=== PATIENT | male | born 1945 | race Caucasian/White ===

== ENCOUNTER 2021-10-05 05:32 | Outpatient (CLI) | payer MEDICARE ==
[~2021-10-05] VITALS: Ht 167.7 cm; Wt 63.6 kg
[~2021-10-05 05:32] MED LIST: ALBU18HF2 PO; ALPR.25T PO; ASP325TEC; ASP81CT; ASPI-1238 PO; ATEN50TA PO; ATN50T; AZIT500T PO; CEFD300C3 PO; CLOP75TA28 PO; CLPD75T; FLUT1DIS26 PO; FURO-125 PO; HCT25T; ISOS60TA63 PO; LEVO125T6 PO; LISI5TAB14; LORA10TA76 PO; LOSA100T57 PO; METF-397 PO; MULT-567 PO; MULT1TAB63; OLME20TA5 PO; POTA10TA PO; PRD20T PO; ROSU10TA12; SIMV20TA26 PO; SIMVASTATIN; [UNRECOGNIZED DRUG - OTHER]
[2021-10-05] MEDS ORDERED: POTA10CA43 PO (13:50)
[2021-10-05] MEDS ORDERED: FURO20TA4 PO (13:50)
[2021-10-05] MEDS ORDERED: ASPI-999 PO (13:50)
== END 2021-10-05 13:53 | disposition home or self-care (01) ==
LOC: PREOP 05:32
PROVIDERS: ATTEND Specialist
DX: Z01.818 Encounter for other preprocedural examination (principal)

== ENCOUNTER 2021-10-08 07:49 | Day surgery (SDC) | payer MEDICARE ==
[~2021-10-08] VITALS: Ht 167.7 cm; Wt 63.6 kg
[~2021-10-08 07:49] MED LIST changes: +ASPI-999 PO; +FURO20TA4 PO; +POTA10CA43 PO
[2021-10-08 08:00] VITALS: BP 158/81
[2021-10-08] MEDS: TETRACAINE 0.5% OPHTH SOLN 4 ML BTL (SINGLE DOSE ONLY) OU PRN ×4 (08:28→08:55)
[2021-10-08] MEDS ORDERED: MOXIFLOXACIN OPHTH SOLN 5 MG/ML 0.3 ML SYRINGE OP ONE (08:30)
[2021-10-08] MEDS ORDERED: POVIDONE (BETADINE) OPHTH SOLN 5% 30 ML OP ONE (08:30)
[2021-10-08] MEDS ORDERED: TIMOLOL MALEATE 0.5% 5 ML (TIMOPTIC) BTL OU PRN (08:30)
[2021-10-08] MEDS: TROPICAMIDE 1% OPH SOLN (MYDRIACYL) 15 ML BTL OP SCH ×3 (08:38→08:55)
[2021-10-08] MEDS: PHENYLEPHRINE 10% OPHTH (NEO-SYN) 5 ML BTL OU SCH ×3 (08:38→08:55)
--- NOTE | 2021-10-08 09:13 | Ophthalmologist Pre-Op Note ---
Pre-Operative Progress Note H&P Reviewed The H&P was reviewed, patient examined and no changes noted. Date H&P Reviewed: Oct 08, 2021 Time H&P Reviewed: 09:13 Pre-Op Dx Cataract, Left Eye NOEL HOLLEY MD Oct 08, 2021 09:13
[2021-10-08] MEDS ORDERED: MIDAZOLAM 2 MG/2 ML (VERSED) VIAL ONE (09:16)
[2021-10-08] MEDS ORDERED: acetaZOLAMIDE ER 500 MG CAP (DIAMOX SEQUELS) PO ONE (09:30)
--- NOTE | 2021-10-08 09:35 | Ophthalmology Operative Report ---
Cataract removal/placement IOL PREOPERATIVE DIAGNOSIS: Cataract Left Eye POSTOPERATIVE DIAGNOSIS: Cataract Left Eye PROCEDURE: Cataract removal and placement of posterior chamber implant, left eye SURGEON: George Holley ANESTHESIA: Topical with sedation COMPLICATIONS: None ESTIMATED BLOOD LOSS: Minimal DESCRIPTION OF PROCEDURE: After proper informed consent was obtained, the patient, a 75 male, was taken to the Operating Room and the left eye was anesthetized with tetracaine. The left eye was then prepped and draped in the usual manner. A wire lid speculum was placed. A paracentesis was made at the left hand position. Preservative free lidocaine was injected into the anterior chamber followed by viscoelastic. A clear corneal incision was made in the temporal position. A capsulorrhexis was preformed and the central nuclear and cortical material were removed. The posterior capsule was polished and an Ferny 22.5 AU00T0 was placed into the capsular bag. The residual viscoelastic was aspirated and balanced saline solution was injected into the anterior chamber. Moxifloxacin was injected into the anterior chamber. The wound was checked and found to be water tight. The patient tolerated the procedure well without complications. GEORGE HOLLEY MD Oct 08, 2021 09:35
[2021-10-08 09:45] VITALS: BP 158/81
--- NOTE | 2021-10-08 17:30 | Anesthesia-General Post-Op ---
MAC Patient Condition Mental Status/LOC: Same as Preop Cardiovascular: Satisfactory Nausea/Vomiting: Absent Respiratory: Satisfactory Pain: Controlled Complications: Absent Post Op Complications Complications None Follow Up Care/Instructions Patient Instructions None needed. Anesthesiology Discharge Order Discharge Order Patient is doing well, no complaints, stable vital signs, no apparent adverse anesthesia problems. No complications reported per nursing. IDALMIS AGRAWAL CRNA Oct 08, 2021 17:30
== END 2021-10-08 09:47 | disposition home or self-care (01) ==
LOC: SDC 07:49
PROVIDERS: ATTEND Specialist
DX: H25.9 Unspecified age-related cataract (principal); F17.290 Nicotine dependence, other tobacco product, uncomplicated; Z95.1 Presence of aortocoronary bypass graft; Z79.82 Long term (current) use of aspirin
CPT/HCPCS: 66984; 82947; V2632

== ENCOUNTER 2021-10-22 07:20 | Day surgery (SDC) | payer MEDICARE ==
[~2021-10-22] VITALS: Ht 167.7 cm; Wt 63.6 kg
[2021-10-22] MEDS: TETRACAINE 0.5% OPHTH SOLN 4 ML BTL (SINGLE DOSE ONLY) OU PRN ×3 (07:40→07:53)
[2021-10-22] MEDS ORDERED: MIDAZOLAM 2 MG/2 ML (VERSED) VIAL ONE (07:40)
[2021-10-22] MEDS ORDERED: MOXIFLOXACIN OPHTH SOLN 5 MG/ML 0.3 ML SYRINGE OP ONE (07:45)
[2021-10-22] MEDS ORDERED: TIMOLOL MALEATE 0.5% 5 ML (TIMOPTIC) BTL OU PRN (07:45)
[2021-10-22] MEDS ORDERED: POVIDONE (BETADINE) OPHTH SOLN 5% 30 ML OP ONE (07:45)
[2021-10-22] MEDS: PHENYLEPHRINE 10% OPHTH (NEO-SYN) 5 ML BTL OU SCH ×2 (07:47→07:53)
[2021-10-22] MEDS: TROPICAMIDE 1% OPH SOLN (MYDRIACYL) 15 ML BTL OP SCH ×2 (07:47→07:53)
[2021-10-22 07:49] VITALS: BP 140/89
--- NOTE | 2021-10-22 08:51 | Ophthalmologist Pre-Op Note ---
Pre-Operative Progress Note H&P Reviewed The H&P was reviewed, patient examined and no changes noted. Date H&P Reviewed: Oct 22, 2021 Time H&P Reviewed: 08:31 Pre-Op Dx Cataract, Right Eye NOEL HOLLEY MD Oct 22, 2021 08:51
--- NOTE | 2021-10-22 08:52 | Ophthalmology Operative Report ---
Cataract removal/placement IOL PREOPERATIVE DIAGNOSIS: Cataract Right Eye POSTOPERATIVE DIAGNOSIS: Cataract Right Eye PROCEDURE: Cataract removal and placement of posterior chamber implant, right eye SURGEON: George Holley ANESTHESIA: Topical with sedation COMPLICATIONS: None ESTIMATED BLOOD LOSS: Minimal DESCRIPTION OF PROCEDURE: After proper informed consent was obtained, the patient, a 75 male, was taken to the Operating Room and the right eye was anesthetized with tetracaine. The right eye was then prepped and draped in the usual manner. A wire lid speculum was placed. A paracentesis was made at the left hand position. Preservative free lidocaine was injected into the anterior chamber followed by viscoelastic. A clear corneal incision was made in the temporal position. A capsulorrhexis was preformed and the central nuclear and cortical material were removed. The posterior capsule was polished and Ferny 22.0 AU00T0 IOL was placed into the capsular bag. The residual viscoelastic was aspirated and balanced saline solution was injected into the anterior chamber. Moxifloxacin was injected into the anterior chamber. The wound was checked and found to be water tight. The patient tolerated the procedure well without complications. GEORGE HOLLEY MD Oct 22, 2021 08:52
[2021-10-22 08:53] VITALS: BP 145/83
[2021-10-22] MEDS ORDERED: acetaZOLAMIDE ER 500 MG CAP (DIAMOX SEQUELS) PO ONE (10:30)
--- NOTE | 2021-10-22 14:46 | Anesthesia-General Post-Op ---
MAC Patient Condition Mental Status/LOC: Same as Preop Cardiovascular: Satisfactory Nausea/Vomiting: Absent Respiratory: Satisfactory Pain: Controlled Complications: Absent Post Op Complications Complications None Follow Up Care/Instructions Patient Instructions None needed. Anesthesiology Discharge Order Discharge Order Patient is doing well, no complaints, stable vital signs, no apparent adverse anesthesia problems. No complications reported per nursing. ROCK HORTON CRNA Oct 22, 2021 14:46
== END 2021-10-22 08:54 ==
LOC: SDC 07:20
PROVIDERS: ATTEND Specialist
DX: E11.36 Type 2 diabetes mellitus with diabetic cataract (principal); H25.11 Age-related nuclear cataract, right eye; F17.200 Nicotine dependence, unspecified, uncomplicated; Z79.84 Long term (current) use of oral hypoglycemic drugs
CPT/HCPCS: 66984; 82947; V2632

== ENCOUNTER 2022-02-08 10:09 | Inpatient (IN) | payer MEDICARE ==
[~2022-02-08] VITALS: Ht 167 cm; Wt 65.2 kg
[~2022-02-08 10:09] MED LIST changes: +ALBU18HF2 INH; -ALBU18HF2 PO; +FLUT1DIS26 INH; -FLUT1DIS26 PO
--- NOTE | 2022-02-08 10:37 | ED Cardiac General ---
History of Present Illness General Chief Complaint: Cardiac/General Problems Stated Complaint: SOB Nursing Triage Note: PT FROM DR EDWARDS OFFICE W C/P AND SOA, PT DENIES C/P AT THIS X BUT STATES HAD THIS AM. PT STATES HAS SWEATING EPISODE THIS AM. Source: patient Exam Limitations: no limitations History of Present Illness Date Seen by Provider: Feb 08, 2022 Time Seen by Provider: 10:28 Initial Comments Patient is a 76-year-old who presents to the emergency room at the direction of his primary care, Dr. George. Patient has had chest pain that he describes as "an ache" over the last couple of days and has had increasing shortness of breath. He went to Dr. George's office and they stated that he needed to be seen in the ER for rapid heart rate. He has been a little sweaty. No nausea. The pain or ache does not radiate. He does not have a local occupational psychologist as he states they are too expensive. He denies any recent illness such as fevers, chills, URI. He does have a chronic cough and his sputum production has not changed. He states his appetite has been diminished over the last few days. No problems with bowel, black or bloody stool. He states he is not urinating as much as he usually does. He is a diabetic. He does have a history of coronary artery bypass grafting years ago also subsequent stent[place] [address] Cadet. At presentation A. fib/flutter on the monitor in the 140s. Systolic blood pressure 115. No acute distress. 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 Associated Systoms: Chest Pain ("ache"), Malaise, Shortness of Air Allergies and Home Medications Allergies Coded Allergies: NKANo Known Allergies (Verified Allergy, Unknown, 01/07/06) Patient Home Medication List Home Medication List Reviewed: Yes ALPRAZolam (Xanax Tablet) 0.25 Mg Tablet, 0.25 MG PO BID PRN for ANXIETY, (Reported) Entered as Reported by: MAURICE CLARK on 05/21/19 0751 Albuterol Sulfate (Ventolin Hfa) 18 Gm Hfa.aer.ad, 2 PUFF PO Q6H PRN for SHORTNESS OF BREATH, (Reported) Entered as Reported by: MAURICE CLARK on 05/21/191540 Aspirin (Aspirin) 81 Mg Tab.chew, 81 MG PO DAILY, (Reported) Entered as Reported by: LISSA KEARNS on 10/05/21 1350 Atenolol (Atenolol) 50 Mg Tablet, 50 MG PO HS, (Reported) Entered as Reported by: MAURICE CLARK on 05/21/191540 Clopidogrel Bisulfate (Clopidogrel) 75 Mg Tablet, 75 MG PO DAILY, (Reported) Entered as Reported by: MAURICE CLARK on 05/21/191540 Fluticasone/Salmeterol (Advair 250-50 Diskus) 1 Each Blst.w.dev, 1 PUFF PO BID, (Reported) Entered as Reported by: MAURICE CLARK on 05/21/191540 Furosemide (Furosemide) 20 Mg Tablet, 20 MG PO DAILY, (Reported) Entered as Reported by: LISSA KEARNS on 10/05/21 1350 Isosorbide Mononitrate (Isosorbide Mononitrate ER) 60 Mg Tab, 30 MG PO DAILY, (Reported) Entered as Reported by: MAURICE CLARK on 05/21/191540 Levothyroxine Sodium (Levothyroxine Sodium) 125 Mcg Tablet, 125 MCG PO DAILY, (Reported) Entered as Reported by: MAURICE CLARK on 05/21/191539 Loratadine (Claritin) 10 Mg Tablet, 10 MG PO DAILY, (Reported) Entered as Reported by: MAURICE CLARK on 05/21/191540 Losartan Potassium (Losartan Potassium) 100 Mg Tablet, 100 MG PO DAILY, (Reported) Entered as Reported by: MAURICE CLARK on 05/21/191540 Metformin HCl (Metformin HCl) 500 Mg Tablet, 1,000 MG PO DAILY, (Reported) Entered as Reported by: MAURICE CLARK on 05/21/191540 Metformin HCl (Metformin HCl) 500 Mg Tablet, 500 MG PO HS, (Reported) Entered as Reported by: MAURICE CLARK on 05/21/191540 Multivitamin (Multivitamins) 1 Each Tablet, 1 EACH PO DAILY, (Reported) Entered as Reported by: MAURICE CLARK on 05/21/19 1550 Potassium Chloride (Potassium Chloride) 10 Meq Capsule.er, 10 MEQ PO DAILY, (Reported) Entered as Reported by: LISSA KEARNS on 10/05/21 1350 Simvastatin (Simvastatin) 20 Mg Tablet, 20 MG PO HS, (Reported) Entered as Reported by: MAURICE CLARK on 05/21/19 1541 Review of Systems Review of Systems Constitutional: see HPI Respiratory: Shortness of Air, SOA With Exertion Cardiovascular: Chest Pain (with exertion and at rest) Past Fefekel-Gqqtms-Ikapkz Hx Patient Social History Tobacco Use?: Yes Tobacco type used: Cigarettes Substance use?: No Alcohol Use?: No Pt feels they are or have been: No Immunizations Up To Date Influenza Vaccine Up-to-Date: Yes; Up-to-Date First/Initial COVID19 Vaccinat: YES Second COVID19 Vaccination Jimmie: YES Seasonal Allergies Seasonal Allergies: No Past Medical History Surgery/Hospitalization HX: COPD, A FIB, APPY, BYPASS 5 STENTS Surgeries: Yes (APPY 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 , QUAD BYPASS AT AGE 51) Appendectomy, Coronary Stent Respiratory: Yes COPD Currently Using CPAP: No Currently Using BIPAP: No Cardiac: Yes (QUADTRIPLE BYPASS AT AGE 49) Coronary Artery Disease, High Cholesterol, Hypertension Neurological: Yes Reproductive Disorders: No Genitourinary: No Gastrointestinal: Yes (APPY) Musculoskeletal: No Endocrine: No HEENT: No Hearing Impairment: Hard of Hearing Cancer: No Psychosocial: Yes Anxiety Integumentary: No Blood Disorders: No Physical Exam Vital Signs Vital Signs - First Documented 02/08/22 10:15 Temp 36.2 Pulse 144 Resp 22 B/P (MAP) 78/53 (61) Pulse Ox 95 O2 Delivery Nasal Cannula O2 Flow Rate 3.00 Capillary Refill : Less Than 3 Seconds Height, Weight, BMI Height: '" Weight: lbs. oz. kg; 23.00 BMI Method:Stated General Appearance: No Apparent Distress, WD/WN HEENT: PERRL/EOMI Neck: Normal Inspection Respiratory: Lungs Clear, Normal Breath Sounds, No Accessory Muscle Use, No Respiratory Distress Cardiovascular: Irregularly Irregular, Tachycardia Gastrointestinal: Non Tender, Soft Extremity: Normal Capillary Refill, Normal Range of Motion, Pedal Edema (2+ (left greater than right)) Neurologic/Psychiatric: Alert, Oriented x3, No Motor/Sensory Deficits, Normal Mood/Affect, natural resources specialist II-XII Norm as Tested Skin: Normal Color, Warm/Dry Progress/Results/Core Measures Results/Orders Lab Results Laboratory Tests Test 02/08/22 10:30 Range/Units White Blood Count 10.0 4.3-11.0 10^3/uL Red Blood Count 4.89 4.30-5.52 10^6/uL Hemoglobin 15.2 13.3-17.7 g/dL Hematocrit 46 40-54 % Mean Corpuscular Volume 94 80-99 fL Mean Corpuscular Hemoglobin 31 25-34 pg Mean Corpuscular Hemoglobin Concent 33 32-36 g/dL Red Cell Distribution Width 15.8 H 10.0-14.5 % Platelet Count 222 130-400 10^3/uL Mean Platelet Volume 10.9 9.0-12.2 fL Immature Granulocyte % (Auto) 0 % Neutrophils (%) (Auto) 81 H 42-75 % Lymphocytes (%) (Auto) 11 L 12-44 % Monocytes (%) (Auto) 7 0-12 % Eosinophils (%) (Auto) 1 0-10 % Basophils (%) (Auto) 1 0-10 % Neutrophils # (Auto) 8.0 H 1.8-7.8 10^3/uL Lymphocytes # (Auto) 1.0 1.0-4.0 10^3/uL Monocytes # (Auto) 0.7 0.0-1.0 10^3/uL Eosinophils # (Auto) 0.1 0.0-0.3 10^3/uL Basophils # (Auto) 0.1 0.0-0.1 10^3/uL Immature Granulocyte # (Auto) 0.0 0.0-0.1 10^3/uL Prothrombin Time 13.4 12.2-14.7 SEC INR Comment 1.0 0.8-1.4 Activated Partial Thromboplast Time 28 24-35 SEC Sodium Level 140 135-145 MMOL/L Potassium Level 4.6 3.6-5.0 MMOL/L Chloride Level 103 98-107 MMOL/L Carbon Dioxide Level 24 21-32 MMOL/L Anion Gap 13 5-14 MMOL/L Blood Urea Nitrogen 38 H 7-18 MG/DL Creatinine 1.77 H 0.60-1.30 MG/DL Estimat Glomerular Filtration Rate 40 BUN/Creatinine Ratio 21 Glucose Level 99 70-105 MG/DL Calcium Level 9.9 8.5-10.1 MG/DL Corrected Calcium 9.8 8.5-10.1 MG/DL Magnesium Level 1.2 L 1.6-2.4 MG/DL Total Bilirubin 0.5 0.1-1.0 MG/DL Aspartate Amino Transf (AST/SGOT) 37 H 5-34 U/L Alanine Aminotransferase (ALT/SGPT) 23 0-55 U/L Alkaline Phosphatase 73 40-136 U/L Myoglobin 105.6 H 10.0-92.0 NG/ML Troponin I 0.725 *H <0.028 NG/ML Total Protein 6.8 6.4-8.2 GM/DL Albumin 4.1 3.2-4.5 GM/DL My Orders Orders - NEETU BARR MD Ekg Tracing (02/08/22 10:24) Cbc With Automated Diff (02/08/22 10:35) Magnesium (02/08/22 10:35) Chest 1 View, Ap/Pa Only (02/08/22 10:35) Comprehensive Metabolic Panel (02/08/22 10:35) Myoglobin Serum (02/08/22 10:35) Protime With Inr (02/08/22 10:35) Partial Thromboplastin Time (02/08/22 10:35) O2 (02/08/22 10:35) Monitor-Rhythm Ecg Trace Only (02/08/22 10:35) Lipid Panel (02/09/22 06:00) Ed Iv/Invasive Line Start (02/08/22 10:35) Troponin I Yancy (02/08/22 10:35) Ns Iv 1000 Ml (Sodium Chloride 0.9%) (02/08/22 10:45) Diltiazem Injection (Cardizem Injection) (02/08/22 10:45) Ekg Tracing (02/08/22 10:58) Diltiazem Drip Pre-Mix (Cardizem Drip Pr (02/08/22 12:30) Aspirin Chewable Tablet (Baby Aspirin Ch (02/08/22 12:30) Apixaban Tablet (Eliquis Tablet) (02/08/22 12:30) Ed Admission (Communication) (02/08/22 12:37) Medications Given in ED Current Medications Medications Dose Ordered Sig/Melissa Route Start Time Stop Time Status Last Admin Dose Admin Apixaban 5 mg ONCE ONCE PO 02/08/22 12:30 02/08/22 12:32 DC 02/08/22 12:47 5 MG Aspirin 243 mg ONCE ONCE PO 02/08/22 12:30 02/08/22 12:32 DC 02/08/22 12:47 243 MG Diltiazem HCl 10 mg ONCE ONCE IVP 02/08/22 10:45 02/08/22 10:46 DC 02/08/22 10:44 10 MG Vital Signs/I&O 02/08/22 02/08/22 10:15 10:44 Temp 36.2 Pulse 144 141 Resp 22 B/P (MAP) 78/53 (61) 110/79 Pulse Ox 95 O2 Delivery Nasal Cannula O2 Flow Rate 3.00 Blood Pressure Mean: 61 Progress Progress Note : Time: 11:43 Progress Note Discussed with Dr Barker, would like to continue his plavix and aspirin and add Eliquis 5mg twice a day; Cardizem 5mg/hr. Will admit to hospitalist. Initial ECG Impression Date: Feb 08, 2022 Initial ECG Impression Time: 10:28 Initial ECG Rate: 133 Initial ECG Rhythm: A Fib/Flutter Initial ECG Impression: Nonspecific Changes EKG : EKG Time: 11:04 Rate: 74 Rhythm: A Fib/Flutter ECG Comparisson: No Previous ECG Available Comment ST segment depression 1 mm leads V4, V5 V6 Diagnostic Imaging Diagonstic Imaging: Xray Plain Films/CT/US/NM/MRI: chest Comments [facility], [place] NAME: RENE SAENZ [facility] REC#: [id number] PT STATUS: REG ER : 1945 PHYSICIAN: NEETU BARR MD ADMIT DATE: 02/08/22/ER Draft Date of Exam:02/08/22 CHEST 1 VIEW, AP/PA ONLY INDICATION: Chest pain. TECHNIQUE/COMPARISON: A single AP view of the chest was obtained with comparison made to the study of 05/23/2019. FINDINGS: There is mild cardiomegaly. The pulmonary vascularity is at the upper limits of normal. There is no evidence pneumothorax. There is no significant pleural fluid. Surgical findings are noted in the mediastinum with persistent bilateral perihilar airspace disease. IMPRESSION: Bilateral perihilar airspace disease may represent chronic pneumonitis or scarring versus recurrent pulmonary edema. There is no evidence of pneumothorax or other acute abnormality. Dictated on workstation # [id number] Dict: 02/08/22 1101 Trans: 02/08/22 1105 [id number] Interpreted by: VALERIY BAH MD Electronically signed by: Critical Care Note Critical Care Start Time: 10:28 Stop Time: 12:30 Total Time (minutes) 45 minutes critical care time in the evaluation and management of this patient with atrial fibrillation/flutter with rapid ventricular response. Time includes initial evaluation, review and interpretation of EKG, labs, x-ray. Review of previous hospitalizations from prior providers. Administration of IV antiarrhythmics and continued monitoring. Discussion with cardiology and hospitalist. Departure Communication (Admissions) Time/Spoke to Admitting Phy: 12:[address] Olvera Time/Spoke to Consulting Phy: 11:[address] Barker Impression Primary Impression: Atrial flutter with rapid ventricular response Additional Impressions: Elevated troponin Coronary artery disease Qualified Codes: I25.10 - Atherosclerotic heart disease of [place] coronary artery without angina pectoris Tobacco abuse Disposition: ADMITTED INPATIENT Condition: Stable Admissions Decision to Admit Reason: Admit from ER (General) Decision to Admit/Date: Feb 08, 2022 Time/Decision to Admit Time: 11:37 Departure-Patient Inst. Referrals: JERRY GEORGE DO (PCP/Family) Primary Care Physician NEETU BARR MD Feb 08, 2022 10:37
[2022-02-08 10:42] LABS: BASOPHILS # (AUTO) 0.1 10^3/uL (0.0-0.1); BASOPHILS % (AUTO) 1 % (0-10); EOSINOPHILS # (AUTO) 0.1 10^3/uL (0.0-0.3); EOSINOPHILS % (AUTO) 1 % (0-10); HEMATOCRIT 46 % (40-54); HEMOGLOBIN 15.2 g/dL (13.3-17.7); LYMPHOCYTES % (AUTO) 11 % (12-44); MEAN CORPUSCULAR HEMOGLOBIN 31 pg (25-34); MEAN CORPUSCULAR HGB CONC 33 g/dL (32-36); MEAN CORPUSCULAR VOLUME 94 fL (80-99); MEAN PLATELET VOLUME 10.9 fL (9.0-12.2); MONOCYTES # (AUTO) 0.7 10^3/uL (0.0-1.0); MONOCYTES % (AUTO) 7 % (0-12); NEUTROPHILS % (AUTO) 81 % (42-75); PLATELET COUNT 222 10^3/uL (130-400)
[2022-02-08] MEDS: NS IV 1000 ML 1,000 ML IV SCH ×2 (10:44→22:32)
[2022-02-08 10:50] LABS: PROTHROMBIN TIME PATIENT 13.4 SEC (12.2-14.7)
[2022-02-08 11:01] LABS: ALBUMIN 4.1 GM/DL (3.2-4.5); BILIRUBIN,TOTAL 0.5 MG/DL (0.1-1.0); CALCIUM 9.9 MG/DL (8.5-10.1); CREATININE SERUM 1.77 MG/DL (0.60-1.30); MAGNESIUM 1.2 MG/DL (1.6-2.4); POTASSIUM 4.6 MMOL/L (3.6-5.0); TOTAL PROTEIN 6.8 GM/DL (6.4-8.2)
--- NOTE | 2022-02-08 11:05 | Diagnostic Imaging Report ---
INDICATION: Chest pain. TECHNIQUE/COMPARISON: A single AP view of the chest was obtained with comparison made to the study of 05/23/2019. FINDINGS: There is mild cardiomegaly. The pulmonary vascularity is at the upper limits of normal. There is no evidence pneumothorax. There is no significant pleural fluid. Surgical findings are noted in the mediastinum with persistent bilateral perihilar airspace disease. IMPRESSION: Bilateral perihilar airspace disease may represent chronic pneumonitis or scarring versus recurrent pulmonary edema. There is no evidence of pneumothorax or other acute abnormality. Dictated by: Dictated on workstation # [id number]
[2022-02-08] MEDS ORDERED: dilTIAZem DRIP PRE-MIX 125 ML IV SCH (12:30)
[2022-02-08] MEDS ORDERED: APIXABAN 5 MG (ELIQUIS) TABLET PO ONE (12:30)
[2022-02-08] MEDS ORDERED: ASPIRIN 81 MG CHEW (CHILDREN'S ASA) PO ONE (12:30)
[2022-02-08] MEDS ORDERED: LACTULOSE SYRUP 10GM/15ML (ENULOSE) 30ML UDC PO PRN (15:30)
[2022-02-08] MEDS ORDERED: ONDANSETRON 4 MG/2 ML (SDV) Z0FRAN IV PRN (15:30)
[2022-02-08] MEDS ORDERED: MILK OF MAGNESIA 400 MG/5 ML 30 ML UDC PO PRN (15:30)
[2022-02-08] MEDS ORDERED: BISACODYL 10 MG SUPP (DULCOLAX) PR PRN (15:30)
[2022-02-08] MEDS ORDERED: ANTACID SUSP 30 ML UDC (MYLANTA) PO PRN (15:30)
[2022-02-08] MEDS ORDERED: ACETAMINOPHEN 325 MG TABLET PO PRN (15:30)
[2022-02-08] MEDS ORDERED: polyethylene glycoL POWDER 17 GM (MIRALAX) PACK PO PRN (15:30)
[2022-02-08] MEDS ORDERED: CALCIUM CARBONATE 500 MG (TUMS) TAB.CHEW PO PRN (15:30)
[2022-02-08] MEDS ORDERED: ONDANSETRON 4 MG (ZOFRAN) ORAL DISSOLVE TAB PO PRN (15:30)
--- NOTE | 2022-02-08 15:36 | Consultation-Cardiology ---
HPI-Cardiology Cardiology Consultation: Date of Consultation 02/08/22 Time Seen by a Provider: 16:00 Date of Admission 02-08-22 Attending Physician Malcolm Pitt DO Admitting Physician Admitting Physician: Valerie Olvera MD Attending Physician: Valerie Olvera MD Consulting Physician Aries Barker MD HPI: Chief Complaint: A-flutter with RVR Mr. Crowder is a 76 yr old male admitted to ICU 4 from the ED. His is present at the bedside. He reports he has had palpitations for the last several days, worse with exertion. He reports he has had chest pressure which radiates across his chest. He reports feeling diaphoretic and weak. He states he has taken a nitro which has improved the discomfort. He reports increasing cough for the last few days which is non-productive. He has chronic bilat ankle edema which is unchanged in the recent past. He continues to smoke 1/2 PPD of cigs. He is oxygen dependant on 2.5L/NC. He denies any n/v/d. He denies any fever or chills. Review of Systems-Cardiology Review of Systems Constitutional: No chills, No fever; malaise Eyes: No vision change Ears/Nose/Throat: No epistaxis, No recent hearing loss Respiratory: As described under HPI Cardiovascular: As described under HPI Gastrointestinal: As described under HPI Genitourinary: No dysuria, No hematuria Musculoskeletal: no symptoms reported Skin: No rash on exposed areas, No ulcerations on exposed areas Psychiatric/Neurological: No anxiety, No depression, No seizure, No focal weakness, No syncope Hematologic: No bleeding abnormalities MOZ-Imsvaa-Hikahk Hx Patient Social History Have you traveled recently?: No Alcohol Use?: No Pt feels they are or have been: No Tobacco type used: Cigarettes Immunizations Up To Date Date of Pneumonia Vaccine: Dec 04, 2018 Date of Influenza Vaccine: Dec 04, 2018 Past Medical History PMH As described under Assessment. Family Medical History Family Medical History: He does not report any family h/o CAD Allergies and Home Medications Allergies Coded Allergies: NKANo Known Allergies (Verified Allergy, Unknown, 01/07/06) Patient Home Medication List ALPRAZolam (Xanax Tablet) 0.25 Mg Tablet, 0.25 MG PO BID PRN for ANXIETY, (Reported) Entered as Reported by: MAURICE CLARK on 05/21/191540 Albuterol Sulfate (Ventolin Hfa) 18 Gm Hfa.aer.ad, 2 PUFF PO Q6H PRN for SHORTNESS OF BREATH, (Reported) Entered as Reported by: MAURICE CLARK on 05/21/191540 Last Action: Last Taken Edited Aspirin (Aspirin) 81 Mg Tab.chew, 81 MG PO DAILY, (Reported) Entered as Reported by: LISSA KEARNS on 10/05/21 135 Atenolol (Atenolol) 50 Mg Tablet, 50 MG PO HS, (Reported) Entered as Reported by: MAURICE CLARK on 05/21/191540 Clopidogrel Bisulfate (Clopidogrel) 75 Mg Tablet, 75 MG PO DAILY, (Reported) Entered as Reported by: MAURICE CLARK on 05/21/191540 Fluticasone/Salmeterol (Advair 250-50 Diskus) 1 Each Blst.w.dev, 1 PUFF PO BID, (Reported) Entered as Reported by: MAURICE CLARK on 05/21/191540 Last Action: Last Taken Edited Furosemide (Furosemide) 20 Mg Tablet, 20 MG PO DAILY, (Reported) Entered as Reported by: LISSA KEARNS on 10/05/21 1350 Isosorbide Mononitrate (Isosorbide Mononitrate ER) 60 Mg Tab, 30 MG PO DAILY, (Reported) Entered as Reported by: MAURICE CLARK on 05/21/191540 Levothyroxine Sodium (Levothyroxine Sodium) 125 Mcg Tablet, 125 MCG PO DAILY, (Reported) Entered as Reported by: MAURICE CLARK on 05/21/191539 Loratadine (Claritin) 10 Mg Tablet, 10 MG PO DAILY, (Reported) Entered as Reported by: MAURICE CLARK on 05/21/191540 Losartan Potassium (Losartan Potassium) 100 Mg Tablet, 100 MG PO DAILY, (Reported) Entered as Reported by: MAURICE CLARK on 05/21/191540 Metformin HCl (Metformin HCl) 500 Mg Tablet, 1,000 MG PO DAILY, (Reported) Entered as Reported by: MAURICE CLARK on 05/21/191540 Metformin HCl (Metformin HCl) 500 Mg Tablet, 500 MG PO HS, (Reported) Entered as Reported by: MAURICE CLARK on 05/21/19 1541 Multivitamin (Multivitamins) 1 Each Tablet, 1 EACH PO DAILY, (Reported) Entered as Reported by: MAURICE CLARK on 05/21/19 1550 Potassium Chloride (Potassium Chloride) 10 Meq Capsule.er, 10 MEQ PO DAILY, (Reported) Entered as Reported by: LISSA KEARNS on 10/05/21 1350 Simvastatin (Simvastatin) 20 Mg Tablet, 20 MG PO HS, (Reported) Entered as Reported by: MAURICE CLARK on 05/21/19 1541 Physical Exam-Cardiology Physical Exam Vital Signs/I&O 02/08/22 02/08/22 02/08/22 02/08/22 20:00 20:00 20:00 21:00 Temp 36.5 Pulse 73 73 Resp 19 B/P (MAP) 108/62 (77) 106/68 (81) Pulse Ox 96 O2 Delivery Nasal Cannula Nasal Cannula Nasal Cannula O2 Flow Rate 4.00 4.00 4.00 02/08/22 02/08/22 02/09/22 02/09/22 22:00 23:00 00:00 00:03 Pulse 73 72 71 Resp 21 30 21 B/P (MAP) 109/67 (81) 100/79 (86) 108/73 (85) Pulse Ox 93 92 94 O2 Delivery Nasal Cannula Nasal Cannula Nasal Cannula Nasal Cannula O2 Flow Rate 4.00 4.00 4.00 4.00 02/09/22 02/09/22 02/09/22 02/09/22 01:00 01:00 02:13 03:00 Pulse 71 71 70 72 Resp 25 19 20 B/P (MAP) 102/72 (82) 108/66 (80) 110/76 (87) Pulse Ox 96 97 96 O2 Delivery Nasal Cannula Nasal Cannula Nasal Cannula O2 Flow Rate 4.00 4.00 4.00 02/09/22 02/09/22 02/09/22 02/09/22 04:00 04:00 04:08 04:22 Temp 36.5 Pulse 73 Resp 17 B/P (MAP) 99/54 (69) Pulse Ox 93 96 95 O2 Delivery Nasal Cannula Nasal Cannula Nasal Cannula O2 Flow Rate 4.00 4.00 4.00 02/09/22 02/09/22 02/09/22 02/09/22 05:00 06:00 07:18 07:19 Temp 36.5 Pulse 73 72 72 Resp 18 24 B/P (MAP) 107/69 (82) 99/51 (67) Pulse Ox 95 94 94 94 O2 Delivery Nasal Cannula Nasal Cannula Nasal Cannula O2 Flow Rate 4.00 4.00 4.00 02/09/22 00:00 Intake Total 1475 ml Output Total 375 ml Balance 1100 ml Capillary Refill : Less Than 3 Seconds Constitutional: AAO x 3, well-developed, other (thin) HEENT: PERRL, hard of hearing Neck: No carotid bruit; carotid pulses are 2 + bilaterally Respiratory: No accessory muscle use, No respiratory distress; rhonchi (scattered), other (prolonged exp phase) Cardiovascular: irregularly irregular Gastrointestinal: No tender; soft, audible bowel sounds Extremities: no lower extremity edema bilateral Neurologic/Psychiatric: grossly intact (moves all extremities) Skin: No rash on exposed areas, No ulcerations on exposed areas Data Review Labs Laboratory Tests 02/08/22 10:30: White Blood Count 10.0, Red Blood Count 4.89, Hemoglobin 15.2, Hematocrit 46, Mean Corpuscular Volume 94, Mean Corpuscular Hemoglobin 31, Mean Corpuscular Hemoglobin Concent 33, Red Cell Distribution Width 15.8H, Platelet Count 222, Mean Platelet Volume 10.9, Immature Granulocyte % (Auto) 0, Neutrophils (%) (Auto) 81H, Lymphocytes (%) (Auto) 11L, Monocytes (%) (Auto) 7, Eosinophils (%) (Auto) 1, Basophils (%) (Auto) 1, Neutrophils # (Auto) 8.0H, Lymphocytes # (Auto) 1.0, Monocytes # (Auto) 0.7, Eosinophils # (Auto) 0.1, Basophils # (Auto) 0.1, Immature Granulocyte # (Auto) 0.0, Prothrombin Time 13.4, INR Comment 1.0, Activated Partial Thromboplast Time 28, Sodium Level 140, Potassium Level 4.6, Chloride Level 103, Carbon Dioxide Level 24, Anion Gap 13, Blood Urea Nitrogen 38H, Creatinine 1.77H, Estimat Glomerular Filtration Rate 40, BUN/Creatinine Ratio 21, Glucose Level 99, Calcium Level 9.9, Corrected Calcium 9.8, Magnesium Level 1.2L, Total Bilirubin 0.5, Aspartate Amino Transf (AST/SGOT) 37H, Alanine Aminotransferase (ALT/SGPT) 23, Alkaline Phosphatase 73, Myoglobin 105.6H, Troponin I 0.725*H, B-Type Natriuretic Peptide 1489.7H, Total Protein 6.8, Albu min 4.1 02/08/22 17:04: Troponin I 1.197*H 02/09/22 03:13: White Blood Count 10.0, Red Blood Count 4.57, Hemoglobin 14.0, Hematocrit 42, Mean Corpuscular Volume 93, Mean Corpuscular Hemoglobin 31, Mean Corpuscular Hemoglobin Concent 33, Red Cell Distribution Width 15.4H, Platelet Count 187, Mean Platelet Volume 10.7, Immature Granulocyte % (Auto) 0, Neutrophils (%) (Auto) 80H, Lymphocytes (%) (Auto) 11L, Monocytes (%) (Auto) 8, Eosinophils (%) (Auto) 1, Basophils (%) (Auto) 1, Neutrophils # (Auto) 8.0H, Lymphocytes # (Auto) 1.1, Monocytes # (Auto) 0.8, Eosinophils # (Auto) 0.1, Basophils # (Auto) 0.1, Immature Granulocyte # (Auto) 0.0, Sodium Level 136, Potassium Level 4.3, Chloride Level 102, Carbon Dioxide Level 24, Anion Gap 10, Blood Urea Nitrogen 36H, Creatinine 1.32H, Estimat Glomerular Filtration Rate 57, BUN/Creatinine Ratio 27, Glucose Level 110H, Calcium Level 9.0, Magnesium Level 1.7, Troponin I 0.857*H, Triglycerides Level 84, Cholesterol Level 101, LDL Cholesterol Direct 47, VLDL Cholesterol 17, HDL Cholesterol 37L Radiology NAME: RENE CROWDER [facility] REC#: [id number] PT STATUS: REG ER : 1945 PHYSICIAN: NEETU BARR MD ADMIT DATE: 02/08/22/ER Draft Date of Exam:02/08/22 CHEST 1 VIEW, AP/PA ONLY INDICATION: Chest pain. TECHNIQUE/COMPARISON: A single AP view of the chest was obtained with comparison made to the study of 05/23/2019. FINDINGS: There is mild cardiomegaly. The pulmonary vascularity is at the upper limits of normal. There is no evidence pneumothorax. There is no significant pleural fluid. Surgical findings are noted in the mediastinum with persistent bilateral perihilar airspace disease. IMPRESSION: Bilateral perihilar airspace disease may represent chronic pneumonitis or scarring versus recurrent pulmonary edema. There is no evidence of pneumothorax or other acute abnormality. Dictated on workstation # [id number] Dict: 02/08/22 1101 Trans: 02/08/22 1105 [id number] Interpreted by: VALERIY BAH MD Electronically signed by: ECG Impression ECG Comment Atrial flutter A/P-Cardiology Assessment/Admission Diagnosis Newly dx atrial flutter on EKG of 02-08-22 at [facility] ED NSTEMI H/O systolic/diastolic congestive heart failure ICM - Echocardiogram of 05-21-[address] Cadet showed LVEF 40-45%. Grade 1 diastolic dysfunction. Mild AoR. PASP 15-20 mmHg Coronary artery disease - history of 4 vessel CABG in 1996 in [place] - Cardiac [place] [address] Cadet showing patent vein graft to the circumflex artery and vein graft to the right coronary artery, severe stenosis in the LAD, had 2 stents in the proximal LAD, underwent balloon angioplasty for in-stent restenosis, has severe stenosis in the diagonal branch that was not intervened on. - Cardiac catheterization on May 22, [address] Cadet showing moderate stenosis in the stent of the LAD and distal left main, moderate diffuse disease, diagonal branch still have severe stenosis small artery, occluded vein graft to the circumflex artery and has ostial stenosis of the vein graft to the right coronary artery, balloon angioplasty to the vein graft was done with good results. Hypertension Hyperlipidemia Tobaccoism - 1/2 PPD of cigs - cessation advised DM 2 COPD - oxygen dependant 2.5L/NC Discussion and Recomendations Newly diagnosed atrial flutter - rate controlled on Cardizem gtt - OAC with Eliquis initiated NSTEMI Anginal chest pain prob precipitated by atrial flutter with RVR - start ASA and Plavix Acute renal insufficiency - treat with gentle IVF hydraton Echocardiogram Replace electrolytes Monitor lab Further recs will be based on his hospital course We would like to thank medical services for this consult Clinical Quality Measures AMI/AHF: ASA po Prior to arrival: Yes MIRNA SHARMA Feb 08, 2022 15:36
[2022-02-08] MEDS ORDERED: NS IV 1000 ML 1,000 ML IV SCH (16:15)
[2022-02-08] MEDS ORDERED: CLOPIDOGREL 75 MG (PLAVIX) TABLET PO NR (16:15)
[2022-02-08] MEDS: MAGNESIUM 1 GM/100 ML IVPB 100 ML IV SCH ×3 (16:23→17:37)
[2022-02-08] MEDS: dilTIAZem DRIP PRE-MIX 125 ML IV SCH (16:57)
--- NOTE | 2022-02-08 17:25 | Consultation-Cardiology ---
HPI-Cardiology Cardiology Consultation: Date of Consultation 02/08/22 Time Seen by a Provider: 16:45 Date of Admission Attending Physician Malcolm Pitt DO Admitting Physician Admitting Physician: Valerie Olvera MD Attending Physician: Valerie Olvera MD Consulting Physician MONICA CRUZ MD, MA, FACP, FACC, FSCAI, CCDS Physician requesting consult: Dr Olvera HPI: Chief Complaint: Reason for Card consult: A-flutter with RVR, renal insuff, elevated troponin Mr. Crowder is a 76 yr old male admitted to ICU 4 from the ED. His is present at the bedside. He reports he has had palpitations for the last several days, worse with exertion. He reports he has had chest pressure which radiates across his chest. He reports feeling diaphoretic and weak. He states he has taken a nitro which has improved the discomfort. He reports increasing cough for the last few days which is non-productive. He has chronic bilat ankle edema which is unchanged in the recent past. He continues to smoke 1/2 PPD of cigs. He is oxygen dependant on 2.5L/NC. He denies any n/v/d. He denies any fever or chills. Review of Systems-Cardiology Review of Systems Constitutional: No chills, No fever; malaise Eyes: No vision change Ears/Nose/Throat: No epistaxis, No recent hearing loss Respiratory: As described under HPI Cardiovascular: As described under HPI Gastrointestinal: As described under HPI Genitourinary: No dysuria, No hematuria Musculoskeletal: no symptoms reported Skin: No rash on exposed areas, No ulcerations on exposed areas Psychiatric/Neurological: No anxiety, No depression, No seizure, No focal weakn ess, No syncope Hematologic: No bleeding abnormalities BYL-Dgkqla-[id number] Hx Patient Social History Smoking Status: Current Everyday Smoker Have you traveled recently?: No Alcohol Use?: No Pt feels they are or have been: No Tobacco type used: Cigars Immunizations Up To Date Date of Pneumonia Vaccine: Dec 04, 2018 Date of Influenza Vaccine: Dec 04, 2018 Past Medical History PMH As described under Assessment. Family Medical History Family Medical History: He does not report any family h/o CAD Allergies and Home Medications Allergies Coded Allergies: NKANo Known Allergies (Verified Allergy, Unknown, 01/07/06) Patient Home Medication List Home Medication List Reviewed: Yes ALPRAZolam (Xanax Tablet) 0.25 Mg Tablet, 0.25 MG PO BID PRN for ANXIETY, (Repo rted) Entered as Reported by: MAURICE CLARK on 05/21/191540 Albuterol Sulfate (Ventolin Hfa) 18 Gm Hfa.aer.ad, 2 PUFF PO Q6H PRN for SHORTNESS OF BREATH, (Reported) Entered as Reported by: MAURICE CLARK on 05/21/191540 Aspirin (Aspirin) 81 Mg Tab.chew, 81 MG PO DAILY, (Reported) Entered as Reported by: LISSA KEARNS on 10/05/21 1350 Atenolol (Atenolol) 50 Mg Tablet, 50 MG PO HS, (Reported) Entered as Reported by: MAURICE CLARK on 05/21/191540 Clopidogrel Bisulfate (Clopidogrel) 75 Mg Tablet, 75 MG PO DAILY, (Reported) Entered as Reported by: MAURICE CLARK on 05/21/191540 Fluticasone/Salmeterol (Advair 250-50 Diskus) 1 Each Blst.w.dev, 1 PUFF PO BID, (Reported) Entered as Reported by: MAURICE CLARK on 05/21/191540 Furosemide (Furosemide) 20 Mg Tablet, 20 MG PO DAILY, (Reported) Entered as Reported by: LISSA KEARNS on 10/05/21 1350 Isosorbide Mononitrate (Isosorbide Mononitrate ER) 60 Mg Tab, 30 MG PO DAILY, (Reported) Entered as Reported by: MAURICE CLARK on 05/21/191540 Levothyroxine Sodium (Levothyroxine Sodium) 125 Mcg Tablet, 125 MCG PO DAILY, (Reported) Entered as Reported by: MAURICE CLARK on 05/21/191539 Loratadine (Claritin) 10 Mg Tablet, 10 MG PO DAILY, (Reported) Entered as Reported by: MAURICE CLARK on 05/21/191540 Losartan Potassium (Losartan Potassium) 100 Mg Tablet, 100 MG PO DAILY, (Reported) Entered as Reported by: MAURICE CLARK on 05/21/191540 Metformin HCl (Metformin HCl) 500 Mg Tablet, 1,000 MG PO DAILY, (Reported) Entered as Reported by: MAURICE CLARK on 05/21/19 1541 Metformin HCl (Metformin HCl) 500 Mg Tablet, 500 MG PO HS, (Reported) Entered as Reported by: MAURICE CLARK on 05/21/19 1541 Multivitamin (Multivitamins) 1 Each Tablet, 1 EACH PO DAILY, (Reported) Entered as Reported by: MAURICE CLARK on 05/21/19 1550 Potassium Chloride (Potassium Chloride) 10 Meq Capsule.er, 10 MEQ PO DAILY, (Reported) Entered as Reported by: LISSA KEARNS on 10/05/21 1350 Simvastatin (Simvastatin) 20 Mg Tablet, 20 MG PO HS, (Reported) Entered as Reported by: MAURICE CLARK on 05/21/19 1541 Physical Exam-Cardiology Physical Exam Vital Signs/I&O 02/08/22 02/08/22 02/08/22 02/08/22 10:15 10:15 10:44 13:21 Temp 36.2 Pulse 144 141 73 Resp 22 B/P (MAP) 78/53 (61) 110/79 109/73 Pulse Ox 95 95 O2 Delivery Nasal Cannula Nasal Cannula O2 Flow Rate 3.00 3.00 02/08/22 02/08/22 02/08/22 02/08/22 14:53 15:00 15:30 15:30 Pulse 74 74 73 Resp 17 35 26 B/P (MAP) 100/66 117/66 (83) 111/70 (84) Pulse Ox 95 91 96 92 O2 Delivery Nasal Cannula Nasal Cannula Nasal Cannula Nasal Cannula O2 Flow Rate 3.00 3.00 3.00 3.00 3.00 02/08/22 02/08/22 02/08/22 02/08/22 15:30 15:45 15:55 16:00 Temp 36.4 Pulse 74 73 73 Resp 32 18 B/P (MAP) 113/78 (90) 123/75 (91) Pulse Ox 95 95 O2 Delivery Nasal Cannula Nasal Cannula O2 Flow Rate 3.00 3.00 02/08/22 02/08/22 16:15 16:30 Pulse 73 73 Resp 25 17 B/P (MAP) 108/73 (85) 117/74 (88) Pulse Ox 94 96 O2 Delivery Nasal Cannula Nasal Cannula O2 Flow Rate 3.00 3.00 Capillary Refill : Less Than 3 Seconds Constitutional: AAO x 3, well-developed, other (thin) HEENT: PERRL, hard of hearing Neck: No carotid bruit; carotid pulses are 2 + bilaterally Respiratory: No accessory muscle use, No respiratory distress; rhonchi (scattered), other (prolonged exp phase) Cardiovascular: irregularly irregular Gastrointestinal: No tender; soft, audible bowel sounds Extremities: no lower extremity edema bilateral Neurologic/Psychiatric: grossly intact (moves all extremities) Skin: No rash on exposed areas, No ulcerations on exposed areas Data Review Labs Laboratory Tests 02/08/22 10:30: White Blood Count 10.0, Red Blood Count 4.89, Hemoglobin 15.2, Hematocrit 46, Mean Corpuscular Volume 94, Mean Corpuscular Hemoglobin 31, Mean Corpuscular Hemoglobin Concent 33, Red Cell Distribution Width 15.8H, Platelet Count 222, Mean Platelet Volume 10.9, Immature Granulocyte % (Auto) 0, Neutrophils (%) (Auto) 81H, Lymphocytes (%) (Auto) 11L, Monocytes (%) (Auto) 7, Eosinophils (%) (Auto) 1, Basophils (%) (Auto) 1, Neutrophils # (Auto) 8.0H, Lymphocytes # (Auto) 1.0, Monocytes # (Auto) 0.7, Eosinophils # (Auto) 0.1, Basophils # (Auto) 0.1, Immature Granulocyte # (Auto) 0.0, Prothrombin Time 13.4, INR Comment 1.0, Activated Partial Thromboplast Time 28, Sodium Level 140, Potassium Level 4.6, Chloride Level 103, Carbon Dioxide Level 24, Anion Gap 13, Blood Urea Nitrogen 38H, Creatinine 1.77H, Estimat Glomerular Filtration Rate 40, BUN/Creatinine Ratio 21, Glucose Level 99, Calcium Level 9.9, Corrected Calcium 9.8, Magnesium Level 1.2L, Total Bilirubin 0.5, Aspartate Amino Transf (AST/SGOT) 37H, Alanine Aminotransferase (ALT/SGPT) 23, Alkaline Phosphatase 73, Myoglobin 105.6H, Troponin I 0.725*H, Total Protein 6.8, Albumin 4.1 02/08/22 17:04: A/P-Cardiology Assessment/Admission Diagnosis Newly dx atrial flutter w/ RVR - on EKG of 02-08-22 at [facility] ED NSTEMI - probably precipitated by RVR H/O systolic/diastolic congestive heart failure ICM - Echocardiogram of 05-21-[address] Cadet showed LVEF 40-45%. Grade 1 diastolic dysfunction. Mild AoR. PASP 15-20 mmHg Coronary artery disease - history of 4 vessel CABG in 1996 in [place] - Cardiac catheterization [place] [address] Cadet showing patent vein g raft to the circumflex artery and vein graft to the right coronary artery, severe stenosis in the LAD, had 2 stents in the proximal LAD, underwent balloon angioplasty for in-stent restenosis, has severe stenosis in the diagonal branch that was not intervened on. - Cardiac catheterization on May 22, [address] Cadet showing moderate stenosis in the stent of the LAD and distal left main, moderate diffuse disease, diagonal branch still have severe stenosis small artery, occluded vein graft to the circumflex artery and has ostial stenosis of the vein graft to the right coronary artery, balloon angioplasty to the vein graft was done with good results. 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 Discussion and Recomendations Newly diagnosed atrial flutter - rate controlled on Cardizem gtt - OAC with Eliquis initiated NSTEMI Anginal chest pain prob precipitated by atrial flutter with RVR - start ASA and Plavix Acute renal insufficiency - treat with gentle IVF hydraton Echocardiogram Replace electrolytes Monitor lab Further recs will be based on his hospital course We would like to thank medical services for this consult Clinical Quality Measures AMI/AHF: ASA po Prior to arrival: Yes MONICA CRUZ MD FACP FAC CCDS Feb 08, 2022 17:25
[2022-02-08] MEDS ORDERED: NS IV 500 ML 500 ML IV PRN (19:45)
--- NOTE | 2022-02-08 19:58 | History & Physical-Hospitalist ---
History of Present Illness HPI/Chief Complaint Bria Crowder is a 76 year old male with PMH HTN, HLD, CAD s/p CABG and coronary stenting, HFrEF, COPD on home oxygen 2.5 L, who presented with chest tightness. He denies radiation to the shoulder, arm, neck, and jaw. He reports palpitations. He was also very short of breath especially with exertion. He was diaphoretic. He denies nausea and vomiting. He has lower extremity swelling which he says has been there for years. He smokes cigars daily. He does not drink alcohol. Source: patient, family Exam Limitations: no limitations Date Seen 02/08/22 Time Seen by a Provider: 13:45 Attending Physician Malcolm Pitt DO PCP Admitting Physician: Mónica Novak MD Attending Physician: Mónica Novak MD Referring Physician Date of Admission Feb 08, 2022 at 15:18 Home Medications & Allergies Home Medications Reviewed patient Home Medication Reconciliation performed by pharmacy medication reconciliations body art technician and/or nursing. Patients Allergies have been reviewed. Allergies Allergies Coded Allergies NKANo Known Allergies (Verified Allergy, Unknown, 01/07/06) Past [id number] Hx Patient Social History Tobacco Use?: Yes Tobacco type used: Cigars Smoking Status: Current Everyday Smoker Smokeless Tobacco Frequency: Current Everyday User Use of E-Cig and/or Vaping dev: No Substance use?: No Alcohol Use?: No Pt feels they are or have been: No Immunizations Up To Date Date of Influenza Vaccine: Dec 04, 2018 First/Initial COVID19 Vaccinat: YES Second COVID19 Vaccination Jimmie: YES Date of Pneumonia Vaccine: Dec 04, 2018 Seasonal Allergies Seasonal Allergies: No Current Status Advance Directives: No Communicates: Verbally Primary Language: Belgian Preferred Spoken Language: Belgian Is interpretation needed?: No Sensory deficits: Vision impairment Implanted or Applied Medical D: Stents Past Medical History Surgeries: Appendectomy, Coronary Stent COPD Currently Using CPAP: No Currently Using BIPAP: No Coronary Artery Disease, High Cholesterol, Hypertension Hearing Impairment: Hard of Hearing Anxiety Blood Disorders: No Family Medical History No Pertinent Family Hx Review of Systems Constitutional: diaphoresis, weakness EENTM: no symptoms reported Respiratory: dyspnea on exertion, short of breath Cardiovascular: chest pain, palpitations Gastrointestinal: no symptoms reported Physical Exam Physical Exam Vital Signs Vital Signs - First Documented 02/08/22 10:15 Temp 36.2 Pulse 144 Resp 22 B/P (MAP) 78/53 (61) Pulse Ox 95 O2 Delivery Nasal Cannula O2 Flow Rate 3.00 Capillary Refill : Less Than 3 Seconds Height, Weight, BMI Height: '" Weight: lbs. oz. kg; 23.30 BMI Method:Stated General Appearance: No Apparent Distress, WD/WN HEENT: PERRL/EOMI, Pharynx Normal Neck: Normal Inspection, Supple Respiratory: Lungs Clear, Normal Breath Sounds, No Respiratory Distress Cardiovascular: No Murmur, Irregularly Irregular Gastrointestinal: Normal Bowel Sounds, Non Tender, Soft Extremity: Normal Inspection, Non Tender; No Inflammation; Pedal Edema, Swelling Neurologic/Psychiatric: Alert, Oriented x3, Normal Mood/Affect Skin: Normal Color, Warm/Dry Results Results/Procedures Labs Laboratory Tests 02/08/22 10:30 Patient resulted labs reviewed. Imaging: Reviewed Imaging Report Assessment/Plan Admission Diagnosis Atrial flutter with rapid ventricular response Admission Status: Inpatient Order (span 2 midnights) Reason for Inpatient Admission: IV Cardizem Assessment and Plan Atrial flutter with rapid ventricular response New onset Cardiology consulted Started on IV Cardizem Now rate controlled Started on Eliquis NSTEMI CAD s/p CABG Troponin elevated Continue ASA and Plavix Trend troponin Acute on chronic HFrEF Borderline EF 40-45% May need diuresis Add on BNP Echo ordered DESIRAE on CKD Likely prerenal due to RVR Gentle fluids, may need diuresis Monitor COPD Chronic respiratory failure with hypoxia Supplemental oxygen as needed, 2.5 L baseline requirement Hypomagnesemia Monitor and replace as needed HTN HLD DVT prophylaxis: already receiving therapeutic anticoagulation Diagnosis/Problems Diagnosis/Problems (1) Atrial flutter with rapid ventricular response Status: Acute (2) Acute on chronic HFrEF (heart failure with reduced ejection fraction) Status: Acute (3) NSTEMI (non-ST elevated myocardial infarction) Status: Acute (4) Coronary artery disease Status: Acute Qualifiers: Coronary Disease-Associated Artery/Lesion type: unspecified vessel or lesion type [place] vs. transplanted heart: [place] heart Associated angina: unspecified whether angina present Qualified Codes: I25.10 - Atherosclerotic heart disease of [place] coronary artery without angina pectoris (5) COPD (chronic obstructive pulmonary disease) Status: Chronic (6) Tobacco abuse Status: Chronic Clinical Quality Measures AMI/AHF: ASA po Prior to arrival: Yes MÓNICA NOVAK MD Feb 08, 2022 19:58
--- NOTE | 2022-02-08 20:04 | Tele-ICU Progress Note ---
Subjective Date Seen by a Provider: Feb 08, 2022 Time Seen by a Provider: 20:03 Subjective/Events-last exam Pt request asthma meds, albuterol and Advair 50/250, will order Sepsis Event Evaluation Height, Weight, BMI Height: '" Weight: lbs. oz. kg; 23.30 BMI Method:Stated Exam Exam Patient acknowledged, consented, and participated in this virtual visit which was conducted using real time audio/video Vital Signs Date Time Temp Pulse Resp B/P (MAP) Pulse Ox O2 Delivery O2 Flow Rate FiO2 02/08/22 20:00 36.5 02/08/22 18:00 72 13 111/72 (85) 94 Nasal Cannula 3.00 02/08/22 17:30 73 21 108/69 (82) 90 Nasal Cannula 3.00 02/08/22 17:15 73 33 149/47 (81) 92 Nasal Cannula 3.00 02/08/22 17:00 73 17 122/67 (85) 94 Nasal Cannula 3.00 02/08/22 16:45 73 15 94 Nasal Cannula 3.00 02/08/22 16:30 73 17 117/74 (88) 96 Nasal Cannula 3.00 02/08/22 16:15 73 25 108/73 (85) 94 Nasal Cannula 3.00 02/08/22 16:00 73 18 123/75 (91) 95 Nasal Cannula 3.00 02/08/22 15:55 36.4 02/08/22 15:45 73 32 113/78 (90) 95 Nasal Cannula 3.00 02/08/22 15:30 74 02/08/22 15:30 92 Nasal Cannula 3.00 02/08/22 15:30 73 26 111/70 (84) 96 Nasal Cannula 3.00 02/08/22 15:00 74 35 117/66 (83) 91 Nasal Cannula 3.00 02/08/22 14:53 74 17 100/66 95 Nasal Cannula 3.00 3.00 02/08/22 13:21 73 109/73 02/08/22 10:44 141 110/79 02/08/22 10:15 36.2 144 22 78/53 (61) 95 Nasal Cannula 3.00 02/08/22 10:15 95 Nasal Cannula 3.00 Height & Weight Height: '" Weight: lbs. oz. 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
[2022-02-08] MEDS: APIXABAN 5 MG (ELIQUIS) TABLET PO SCH (21:49)
[2022-02-08] MEDS: SENNOSIDES 8.6 MG (SENOKOT) TAB PO SCH (21:51)
[2022-02-08] MEDS: DOCUSATE SODIUM 100 MG (COLACE) CAP PO SCH (21:51)
[2022-02-08] MEDS: MELATONIN 3 MG TABLET PO PRN (22:51)
[2022-02-09] MEDS: RT-ALBUTEROL HFA 8.5 GM INHALER IH PRN ×2 (03:15→15:27)
[2022-02-09 03:30] LABS: BASOPHILS # (AUTO) 0.1 10^3/uL (0.0-0.1); BASOPHILS % (AUTO) 1 % (0-10); EOSINOPHILS # (AUTO) 0.1 10^3/uL (0.0-0.3); EOSINOPHILS % (AUTO) 1 % (0-10); HEMATOCRIT 42 % (40-54); LYMPHOCYTES # (AUTO) 1.1 10^3/uL (1.0-4.0); LYMPHOCYTES % (AUTO) 11 % (12-44); MEAN CORPUSCULAR HEMOGLOBIN 31 pg (25-34); MEAN CORPUSCULAR HGB CONC 33 g/dL (32-36); MEAN CORPUSCULAR VOLUME 93 fL (80-99); MEAN PLATELET VOLUME 10.7 fL (9.0-12.2); MONOCYTES # (AUTO) 0.8 10^3/uL (0.0-1.0); MONOCYTES % (AUTO) 8 % (0-12); NEUTROPHILS % (AUTO) 80 % (42-75); PLATELET COUNT 187 10^3/uL (130-400)
[2022-02-09 03:45] LABS: POTASSIUM 4.3 MMOL/L (3.6-5.0)
[2022-02-09 03:51] LABS: CREATININE SERUM 1.32 MG/DL (0.60-1.30)
[2022-02-09 03:53] LABS: MAGNESIUM 1.7 MG/DL (1.6-2.4)
[2022-02-09] MEDS ORDERED: MAGNESIUM 1 GM/100 ML IVPB 200 ML IV ONE (05:15)
[2022-02-09] MEDS ORDERED: MAGNESIUM 1 GM/100 ML IVPB 100 ML IV SCH (05:15)
[2022-02-09] MEDS: MAGNESIUM 1 GM/100 ML IVPB 100 ML IV SCH ×3 (05:17→06:00)
[2022-02-09] MEDS: POTASSIUM CL 10MEQ/50ML IVPB 50 ML IV SCH (05:59)
[2022-02-09] MEDS: KCL 20 MEQ TAB (K-DUR) PO SCH (06:00)
[2022-02-09] MEDS: RT--FLUTICASONE/SALMETEROL 113-14 (AIRDUO RespiCLICK) IH SCH ×2 (07:18→22:09)
[2022-02-09] MEDS: RT-ALBUTEROL HFA 8.5 GM INHALER IH SCH ×2 (07:18→18:26)
[2022-02-09 07:19] VITALS: BP 99/51
[2022-02-09] MEDS: APIXABAN 5 MG (ELIQUIS) TABLET PO SCH ×2 (08:29→21:22)
[2022-02-09] MEDS: SENNOSIDES 8.6 MG (SENOKOT) TAB PO SCH ×2 (08:29→21:22)
[2022-02-09] MEDS: ASPIRIN 81 MG CHEW (CHILDREN'S ASA) PO SCH (08:29)
[2022-02-09] MEDS: DOCUSATE SODIUM 100 MG (COLACE) CAP PO SCH ×2 (08:29→21:23)
[2022-02-09] MEDS ORDERED: FUROSEMIDE 40 MG/4 ML INJ (LASIX) IVP NR ×2 (10:00→16:15)
[2022-02-09] MEDS ORDERED: POTA10TA PO (11:00)
[2022-02-09] MEDS ORDERED: ALPR0.254 PO (11:00)
[2022-02-09] MEDS ORDERED: MULT-850 PO (11:00)
[2022-02-09] MEDS ORDERED: LEVO-130 PO (11:00)
[2022-02-09] MEDS ORDERED: CLOPIDOGREL 75 MG (PLAVIX) TABLET PO NR (11:00)
[2022-02-09] MEDS ORDERED: ACET-2650 PO (11:00)
[2022-02-09 15:48] LABS: ABG BASE EXCESS 0.9 MMOL/L (-2.5-2.5); ABG OXYGEN SATURATION 90 % (94-100); ABG PCO2 50 MMHG (35-45); ABG PO2 62 MMHG (79-93); ABG TCO2 27.8 MMOL/L (21.0-31.0)
[2022-02-09 15:49] LABS: ALLENS TEST YES-POS; INSPIRED O2 6L; PATIENT TEMP 36.2; VENTILATOR NO
--- NOTE | 2022-02-09 15:54 | Diagnostic Imaging Report ---
INDICATION: Shortness of air. COMPARISON: 02/08/2022. FINDINGS: Single frontal radiographic view of the chest was obtained and demonstrates mild cardiomegaly and pulmonary vascular congestion. Lungs continue to show diffuse coarse prominence of the interstitium. Overall, aeration is stable. There is no large effusion or pneumothorax. Osseous structures show no gross acute abnormalities. Sternotomy wires are noted. IMPRESSION: 1. Stable exam with chest showing cardiomegaly with vascular congestion. 2. Persistent diffuse coarse prominence of the interstitium may be on the basis of recurrent or residual pulmonary edema. Underlying chronic interstitial lung disease is also a consideration. Dictated by: Dictated on workstation # [id number]
[2022-02-09 15:57] LABS: ABG PH 7.34 (7.37-7.43)
[2022-02-09] MEDS: dilTIAZem DRIP PRE-MIX 125 ML IV SCH ×2 (16:00→20:31)
--- NOTE | 2022-02-09 16:56 | Progress Note - Cardiology ---
Cardiology SOAP Progress Note Subjective: No cp or palp or syncope Shortness of breath and malaise are better No n/v/d No leg swelling Wishes to go home Objective: I&O/Vital Signs 02/09/22 02/09/22 02/09/22 02/09/22 05:00 06:00 07:00 07:05 Pulse 73 72 71 72 Resp 18 24 12 B/P (MAP) 107/69 (82) 99/51 (67) 123/72 (89) Pulse Ox 95 94 94 O2 Delivery Nasal Cannula Nasal Cannula Nasal Cannula O2 Flow Rate 4.00 4.00 4.00 02/09/22 02/09/22 02/09/22 02/09/22 07:18 07:19 07:40 08:00 Temp 36.5 Pulse 72 73 Resp 15 B/P (MAP) 114/83 (93) Pulse Ox 94 94 94 78 O2 Delivery Nasal Cannula Nasal Cannula Nasal Cannula O2 Flow Rate 4.00 4.00 4.00 02/09/22 02/09/22 02/09/22 02/09/22 08:00 08:20 09:00 10:00 Temp 36.8 Pulse 80 74 Resp 25 19 B/P (MAP) 114/64 (81) Pulse Ox 81 93 O2 Delivery Nasal Cannula Nasal Cannula Nasal Cannula O2 Flow Rate 5.00 5.00 5.00 02/09/22 02/09/22 02/09/22 02/09/22 11:00 12:00 12:51 13:00 Pulse 75 75 74 74 Resp 37 28 17 B/P (MAP) 120/68 (85) 104/57 (73) 131/69 (89) Pulse Ox 94 97 90 O2 Delivery Nasal Cannula Nasal Cannula Nasal Cannula O2 Flow Rate 5.00 5.00 5.00 02/09/22 02/09/22 02/09/22 02/09/22 14:00 15:00 15:27 16:39 Temp 36.7 Pulse 75 75 Resp 20 15 B/P (MAP) 119/67 (84) 125/76 (92) Pulse Ox 93 95 91 O2 Delivery Nasal Cannula Nasal Cannula Nasal Cannula O2 Flow Rate 5.00 5.00 6.00 02/09/22 00:00 Intake Total 1475 ml Output Total 375 ml Balance 1100 ml Constitutional: AAO x 3, well-developed, other (thin) Respiratory: No accessory muscle use, No respiratory distress; rhonchi (scattered), other (prolonged exp phase) Cardiovascular: irregularly irregular Gastrointestional: No tender; soft, audible bowel sounds Extremities: no lower extremity edema bilateral Neurologic/Psychiatric: grossly intact (moves all extremities) Skin: No rash on exposed areas, No ulcerations on exposed areas Results/Procedures: Labs Laboratory Tests 02/08/22 17:04: Troponin I 1.197*H 02/09/22 03:13: Troponin I 0.857*H, White Blood Count 10.0, Red Blood Count 4.57, Hemoglobin 14.0, Hematocrit 42, Mean Corpuscular Volume 93, Mean Corpuscular Hemoglobin 31, Mean Corpuscular Hemoglobin Concent 33, Red Cell Distribution Width 15.4H, Platelet Count 187, Mean Platelet Volume 10.7, Immature Granulocyte % (Auto) 0, Neutrophils (%) (Auto) 80H, Lymphocytes (%) (Auto) 11L, Monocytes (%) (Auto) 8, Eosinophils (%) (Auto) 1, Basophils (%) (Auto) 1, Neutrophils # (Auto) 8.0H, Lymphocytes # (Auto) 1.1, Monocytes # (Auto) 0.8, Eosinophils # (Auto) 0.1, Basophils # (Auto) 0.1, Immature Granulocyte # (Auto) 0.0, Sodium Level 136, Potassium Level 4.3, Chloride Level 102, Carbon Dioxide Level 24, Anion Gap 10, Blood Urea Nitrogen 36H, Creatinine 1.32H, Estimat Glomerular Filtration Rate 57, BUN/Creatinine Ratio 27, Glucose Level 110H, Calcium Level 9.0, Magnesium Level 1.7, Triglycerides Level 84, Cholesterol Level 101, LDL Cholesterol Direct 47, VLDL Cholesterol 17, HDL Cholesterol 37L 02/09/22 15:45: Blood Gas Puncture Site RR, Blood Gas Patient Temperature 36.2, Arterial Blood pH 7.34*L, Arterial Blood Partial Pressure CO2 50H, Arterial Blood Partial Pressure O2 62L, Arterial Blood HCO3 26, Arterial Blood Total CO2 27.8, Arterial Blood Oxygen Saturation 90L, Arterial Blood Base Excess 0.9, John Test YES-POS, Blood Gas Ventilator Setting NO, Blood Gas Inspired Oxygen 6L Microbiology 02/08/22 MRSA Screen - Final, Complete MRSA not isolated Laboratory Tests 02/08/22 10:30 02/09/22 03:13 A/P: Assessment: Newly dx atrial flutter w/ RVR - on EKG of 02-08-22 at [facility] ED Type 2 MA - probably precipitated by RVR Acute renal insuff (DESIRAE) due to volume depletion - improving with hydration [facility] - Echocardiogram of 05-21-[address] Cadet showed LVEF 40-45%. Grade 1 diastolic dysfunction. Mild AoR. PASP 15-20 mmHg - Echo on 02/09/22: LVEF 40-45%, mod biatrial enlargement, PASP 40-45 mmHg Coronary artery disease - history of 4 vessel CABG in 1996 in [place] - Cardiac catheterization [place] [address] Cadet showing patent vein graft to the circumflex artery and vein graft to the right coronary artery, severe stenosis in the LAD, had 2 stents in the proximal LAD, underwent balloon angioplasty for in-stent restenosis, has severe stenosis in the diagonal branch that was not intervened on. - Cardiac catheterization on May 22, [address] Cadet showing moderate stenosis in the stent of the LAD and distal left main, moderate diffuse disease, diagonal branch still have severe stenosis small artery, occluded vein graft to the circumflex artery and has ostial stenosis of the vein graft to the right coronary artery, balloon angioplasty to the vein graft was done with good results. 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 Plan: * Eliquis for stroke prophylaxis * ASA for CAD * iv fluids have improved renal insuff * Change dilt to oral * Monitor labs * Increase ambulation Clinical Quality Measures AMI/AHF: ASA po Prior to arrival: Yes MONICA CRUZ MD FACP FAC CCDS Feb 09, 2022 16:56
--- NOTE | 2022-02-09 17:54 | Progress Note - Hospitalist ---
Subjective HPI/CC On Admission Date Seen by Provider: Feb 09, 2022 Time Seen by Provider: 09:55 Bria Crowder is a 76 year old male with PMH HTN, HLD, CAD s/p CABG and coronary stenting, HFrEF, COPD on home oxygen 2.5 L, who presented with chest tightness. He denies radiation to the shoulder, arm, neck, and jaw. He reports palpitatio ns. He was also very short of breath especially with exertion. He was diaphoretic. He denies nausea and vomiting. He has lower extremity swelling which he says has been there for years. He smokes cigars daily. He does not drink alcohol. Subjective/Events-last exam He is feeling ok today. He denies chest pain. He denies shortness of breath. Objective Exam Vital Signs Vital Signs Date Time Temp Pulse Resp B/P (MAP) Pulse Ox O2 Delivery O2 Flow Rate FiO2 02/09/22 16:39 36.7 02/09/22 16:00 101 21 131/69 (89) 94 Nasal Cannula 5.00 Capillary Refill : Less Than 3 Seconds General Appearance: No Apparent Distress, WD/WN Respiratory: No Respiratory Distress, Decreased Breath Sounds Cardiovascular: Regular Rate, Rhythm, No Murmur Gastrointestinal: Normal Bowel Sounds, Soft Extremity: Normal Inspection, Pedal Edema Neurologic/Psychiatric: Alert, No Motor/Sensory Deficits Skin: Normal Color, Warm/Dry Results/Procedures Lab Laboratory Tests 02/09/22 03:13 Patient resulted labs reviewed. Imaging: Reviewed Imaging Report Assessment/Plan Assessment and Plan Assess & Plan/Chief Complaint Atrial flutter with rapid ventricular response New onset Cardiology following Cardizem Eliquis NSTEMI CAD s/p CABG Troponin elevated, presumed type II CT due to RVR Continue ASA and Plavix Acute on chronic HFrEF Acute on chronic respiratory failure with hypoxia Borderline EF 40-45% BNP elevated CXR with pulmonary edema Lasix DESIRAE on CKD Improved Stop fluids COPD Chronic respiratory failure with hypoxia Supplemental oxygen as needed, 2.5 L baseline requirement Hypomagnesemia Monitor and replace as needed HTN HLD DVT prophylaxis: already receiving therapeutic anticoagulation Diagnosis/Problems Diagnosis/Problems (1) Atrial flutter with rapid ventricular response Status: Acute (2) Acute on chronic HFrEF (heart failure with reduced ejection fraction) Status: Acute (3) NSTEMI (non-ST elevated myocardial infarction) Status: Acute (4) Coronary artery disease Status: Acute Qualifiers: Coronary Disease-Associated Artery/Lesion type: unspecified vessel or lesion type [place] vs. transplanted heart: [place] heart Associated angina: unspecified whether angina present Qualified Codes: I25.10 - Atherosclerotic heart disease of [place] coronary artery without angina pectoris (5) COPD (chronic obstructive pulmonary disease) Status: Chronic (6) Tobacco abuse Status: Chronic (7) Acute on chronic respiratory failure with hypoxia Status: Acute Clinical Quality Measures AMI/AHF: ASA po Prior to arrival: Yes MÓNICA NOVAK MD Feb 09, 2022 17:54
[2022-02-09] MEDS ORDERED: dilTIAZem DRIP PRE-MIX 125 ML IV SCH (20:15)
[2022-02-09] MEDS ORDERED: NS (IVPB) 0 ML ONE (20:27)
[2022-02-10] MEDS: RT-ALBUTEROL HFA 8.5 GM INHALER IH SCH ×3 (02:56→14:45)
[2022-02-10 05:23] LABS: BASOPHILS % (AUTO) 0 % (0-10); EOSINOPHILS % (AUTO) 0 % (0-10); HEMATOCRIT 44 % (40-54); HEMOGLOBIN 14.8 g/dL (13.3-17.7); LYMPHOCYTES # (AUTO) 0.5 10^3/uL (1.0-4.0); LYMPHOCYTES % (AUTO) 4 % (12-44); MEAN CORPUSCULAR HEMOGLOBIN 31 pg (25-34); MEAN CORPUSCULAR HGB CONC 34 g/dL (32-36); MEAN CORPUSCULAR VOLUME 91 fL (80-99); MEAN PLATELET VOLUME 10.7 fL (9.0-12.2); MONOCYTES # (AUTO) 0.9 10^3/uL (0.0-1.0); MONOCYTES % (AUTO) 7 % (0-12); NEUTROPHILS # (AUTO) 11.9 10^3/uL (1.8-7.8); NEUTROPHILS % (AUTO) 89 % (42-75); PLATELET COUNT 181 10^3/uL (130-400); WHITE BLOOD COUNT 13.4 10^3/uL (4.3-11.0)
[2022-02-10 05:37] LABS: POTASSIUM 3.8 MMOL/L (3.6-5.0)
[2022-02-10 05:38] LABS: CALCIUM 9.1 MG/DL (8.5-10.1)
[2022-02-10] MEDS: POTASSIUM CL 10MEQ/50ML IVPB 50 ML IV SCH (05:40)
[2022-02-10] MEDS: KCL 20 MEQ TAB (K-DUR) PO SCH (05:40)
[2022-02-10 05:43] LABS: CREATININE SERUM 1.28 MG/DL (0.60-1.30)
[2022-02-10] MEDS: MAGNESIUM 1 GM/100 ML IVPB 100 ML IV SCH ×3 (05:54→07:37)
[2022-02-10 05:57] LABS: ELLIPT/OVALOCYTES SLIGHT; LYMPHOCYTES % (MANUAL) 8 %; MONOCYTES % (MANUAL) 3 %; NEUTROPHILS % (MANUAL) 89 %; PLATELET CLUMPS OCCASIONAL
--- NOTE | 2022-02-10 07:35 | Tele-ICU Progress Note ---
Subjective Date Seen by a Provider: Feb 10, 2022 Time Seen by a Provider: 07:31 Subjective/Events-last exam In ICU for a fib with RVR, now on IV Cardizem with V rate in 70's, also on Eliquis for a fib, changing over to oral Cardizem, given 180 mg COPD- on Advair 250/50, still has SOB, wheezing, at home is on oxygen 2-3, now on 10 lpm high flow Sepsis Event Evaluation Height, Weight, BMI Height: '" Weight: lbs. oz. kg; 23.16 BMI Method:Stated Exam Exam Patient acknowledged, consented, and participated in this virtual visit which was conducted using real time audio/video Vital Signs Date Time Temp Pulse Resp B/P (MAP) Pulse Ox O2 Delivery O2 Flow Rate FiO2 02/10/22 06:00 78 17 103/61 (75) 94 High Flow N/C 8.00 02/10/22 05:00 76 19 104/59 (74) 94 High Flow N/C 8.00 02/10/22 04:10 105/57 (73) 02/10/22 04:00 76 15 105/57 (73) 95 High Flow N/C 8.00 02/10/22 03:00 76 20 104/58 (73) 94 High Flow N/C 8.00 02/10/22 02:56 94 High Flow N/C 7.00 02/10/22 02:00 76 21 96/59 (71) 93 High Flow N/C 8.00 02/10/22 01:00 77 17 103/66 (78) 93 High Flow N/C 8.00 02/10/22 00:43 77 02/10/22 00:00 76 18 110/63 (79) 93 High Flow N/C 8.00 02/09/22 23:00 77 36 100/51 (67) 95 High Flow N/C 8.00 02/09/22 22:11 92 High Flow N/C 7.00 02/09/22 22:00 122 25 133/89 (104) 94 High Flow N/C 8.00 02/09/22 21:00 93 High Flow N/C 9.00 02/09/22 21:00 125 22 125/79 (94) 90 High Flow N/C 8.00 02/09/22 20:34 112 136/70 12/7/22 20:31 112 136/70 02/09/22 20:00 122 13 121/81 (94) 90 High Flow N/C 8.00 02/09/22 19:00 138 8 125/74 (91) 92 High Flow N/C 8.00 02/09/22 19:00 132 02/09/22 18:30 High Flow N/C 8.00 02/09/22 18:27 High Flow N/C 7.00 02/09/22 18:00 112 31 136/70 (92) 89 Nasal Cannula 5.00 02/09/22 17:00 75 25 121/69 (86) 95 Nasal Cannula 5.00 02/09/22 16:39 36.7 02/09/22 16:00 101 21 131/69 (89) 94 Nasal Cannula 5.00 02/09/22 15:27 91 Nasal Cannula 6.00 02/09/22 15:00 75 15 125/76 (92) 95 Nasal Cannula 5.00 02/09/22 14:00 75 20 119/67 (84) 93 Nasal Cannula 5.00 02/09/22 13:00 74 17 131/69 (89) 90 Nasal Cannula 5.00 02/09/22 12:51 74 02/09/22 12:00 75 28 104/57 (73) 97 Nasal Cannula 5.00 02/09/22 11:00 75 37 120/68 (85) 94 Nasal Cannula 5.00 02/09/22 10:00 74 19 114/64 (81) 93 Nasal Cannula 5.00 02/09/22 09:00 80 25 81 Nasal Cannula 5.00 02/09/22 08:20 Nasal Cannula 5.00 02/09/22 08:00 36.8 02/09/22 08:00 73 15 114/83 (93) 78 Nasal Cannula 4.00 02/09/22 07:40 94 Nasal Cannula 4.00 I & O 02/10/22 07:00 Intake Total 1890 ml Output Total 3735 ml Balance -1845 ml Height & Weight Height: '" Weight: lbs. oz. kg; 23.16 BMI Method:Stated General Appearance: No Apparent Distress, WD/WN HEENT: PERRL/EOMI, Pharynx Normal Neck: Normal Inspection, Supple Respiratory: Lungs Clear, No Respiratory Distress, Decreased Breath Sounds Cardiovascular: Regular Rate, Rhythm, No Murmur, Irregularly Irregular, Tachycardia Capillary Refill: Less Than 3 Seconds Gastrointestinal: normal bowel sounds, non tender, soft Extremity: Normal Inspection, No Pedal Edema, Pedal Edema Neurologic/Psychiatric: Alert, No Motor/Sensory Deficits Skin: Normal Color, Warm/Dry Results Lab Laboratory Tests 02/08/22 10:30 02/09/22 03:13 02/10/22 04:50 Assessment/Plan Assessment/Plan a fib, will switch over to po cardizem 180 q day, continue IV Lasix COPD will continue on current meds Elevated Hb suggests reactive polycythemia, as OP would do 6 min walk, also if CXR does not resolve would CT chest looking for ILD Also if never done would w/u for CAROL Critical Care: Critically Ill Patient Time spent with patient (mins): 20 SARAH CARRANZA MD Feb 10, 2022 07:35
[2022-02-10] MEDS: RT--FLUTICASONE/SALMETEROL 113-14 (AIRDUO RespiCLICK) IH SCH (08:24)
[2022-02-10] MEDS: DOCUSATE SODIUM 100 MG (COLACE) CAP PO SCH ×2 (08:27→21:00)
[2022-02-10] MEDS: SENNOSIDES 8.6 MG (SENOKOT) TAB PO SCH ×2 (08:27→21:00)
[2022-02-10] MEDS ORDERED: FUROSEMIDE 40 MG/4 ML INJ (LASIX) IVP NR ×2 (08:30→17:30)
[2022-02-10] MEDS: APIXABAN 5 MG (ELIQUIS) TABLET PO SCH (08:48)
[2022-02-10] MEDS: ASPIRIN 81 MG CHEW (CHILDREN'S ASA) PO SCH (08:48)
[2022-02-10] MEDS ORDERED: NS 100 ML (IVPB) BAG IV ONE (09:30)
[2022-02-10] MEDS ORDERED: IOHEXOL 350 MG/ML 100 ML (OMNIPAQUE 350) VIAL IV ONE (09:30)
[2022-02-10] MEDS ORDERED: HOLD METFORMIN - RECEIVED CONTRAST 20 ML VIAL IV SCH (09:30)
[2022-02-10] MEDS ORDERED: CATHETER FLUSH 10 ML SYR IV PRN (09:30)
--- NOTE | 2022-02-10 09:42 | Progress Note - Cardiology ---
Cardiology SOAP Progress Note Subjective: Lying in bed States he feels much better today Feels SOB and LE swelling has improved No c/o CP or palpitations Objective: I&O/Vital Signs 02/10/22 02/10/22 02/10/22 02/10/22 19:38 20:00 21:00 22:00 Temp 36.3 Pulse 68 67 64 Resp 24 15 17 B/P (MAP) 84/46 (59) 76/47 (57) 92/54 (67) Pulse Ox 95 92 90 O2 Delivery Vapotherm Vapotherm Vapotherm O2 Flow Rate 30.00 30.00 30.00 65.00 65.00 65.00 02/10/22 02/10/22 02/10/22 02/10/22 22:21 22:33 22:40 22:40 B/P (MAP) 79/46 136/64 Pulse Ox 75 94 O2 Delivery Vapotherm Vapotherm O2 Flow Rate 25.00 25.00 FiO2 65 65 02/10/22 02/10/22 02/10/22 02/10/22 23:00 23:00 23:40 23:59 Pulse 70 Resp 21 B/P (MAP) 96/58 (71) 79/53 Pulse Ox 100 94 O2 Delivery Vapotherm Vapotherm Vapotherm O2 Flow Rate 25.00 25.00 20.00 75.00 75.00 FiO2 70 02/11/22 02/11/22 02/11/22 02/11/22 00:00 00:50 01:00 01:00 Pulse 71 81 72 Resp 16 17 B/P (MAP) 98/58 (71) 107/63 106/69 (81) Pulse Ox 98 96 O2 Delivery Vapotherm Vapotherm O2 Flow Rate 25.00 25.00 75.00 75.00 02/11/22 02/11/22 02/11/22 02/11/22 02:00 02:25 02:39 02:40 Pulse 64 84 Resp 28 22 B/P (MAP) 124/74 (91) 109/64 Pulse Ox 94 94 O2 Delivery Vapotherm NIV Bilevel O2 Flow Rate 25.00 40.00 40.00 75.00 02/11/22 02/11/22 02/11/22 02/11/22 03:00 04:00 04:00 05:00 Pulse 74 80 77 Resp 17 16 16 B/P (MAP) 110/67 (81) 107/57 (74) 102/58 (73) Pulse Ox 95 94 94 95 O2 Delivery NIV Bilevel NIV Bilevel NIV Bilevel NIV Bilevel O2 Flow Rate 40.00 40.00 40.00 FiO2 40 02/11/22 02/11/22 06:00 06:59 Pulse 75 Resp 25 B/P (MAP) 97/65 (76) Pulse Ox 94 93 O2 Delivery NIV Bilevel Vapotherm O2 Flow Rate 40.00 25.00 FiO2 80 02/11/22 00:00 Intake Total 950 ml Output Total 800 ml Balance 150 ml Constitutional: AAO x 3, well-developed, other (thin) Respiratory: No accessory muscle use, No respiratory distress; rhonchi (scattered), other (prolonged exp phase) Cardiovascular: irregularly irregular Gastrointestional: No tender; soft, audible bowel sounds Genital/Rectal: other (urinary catheter with hematuria) Extremities: no lower extremity edema bilateral Neurologic/Psychiatric: grossly intact (moves all extremities) Skin: No rash on exposed areas, No ulcerations on exposed areas Results/Procedures: Labs Laboratory Tests 02/10/22 10:12: Influenza Type A (RT-PCR) Not Detected, Influenza Type B (RT-PCR) Not Detected, SARS-CoV-2 RNA (RT-PCR) Not Detected 02/11/22 04:55: White Blood Count 11.6H, Red Blood Count 4.59, Hemoglobin 14.1, Hematocrit 41, Mean Corpuscular Volume 90, Mean Corpuscular Hemoglobin 31, Mean Corpuscular Hemoglobin Concent 34, Red Cell Distribution Width 14.9H, Platelet Count 183, Mean Platelet Volume 11.1, Immature Granulocyte % (Auto) 0, Neutrophils (%) (Auto) 87H, Lymphocytes (%) (Auto) 5L, Monocytes (%) (Auto) 8, Eosinophils (%) (Auto) 0, Basophils (%) (Auto) 0, Neutrophils # (Auto) 10.1H, Lymphocytes # (Auto) 0.5L, Monocytes # (Auto) 0.9, Eosinophils # (Auto) 0.0, Basophils # (Auto) 0.0, Immature Granulocyte # (Auto) 0.0, Sodium Level 133L, Potassium Level 4.2, Chloride Level 97L, Carbon Dioxide Level 25, Anion Gap 11, Blood Urea Nitrogen 33H, Creatinine 1.36H, Estimat Glomerular Filtration Rate 55, BUN/Creatinine Ratio 24, Glucose Level 103, Calcium Level 9.1, Magnesium Level 2.1 Microbiology 02/08/22 MRSA Screen - Final, Complete MRSA not isolated A/P: Assessment: Newly dx atrial flutter w/ RVR - on EKG of 02-08-22 at [facility] ED - rate controlled - on oral Cardizem - OAC with Eliquis Type 2 [place] - probably precipitated by RVR Acute renal insuff (DESIRAE) due to volume depletion - improving with hydration ICM - Echocardiogram of 05-21-[address] Cadet showed LVEF 40-45%. Grade 1 diastolic dysfunction. Mild AoR. PASP 15-20 mmHg - Echo on 02/09/22: LVEF 40-45%, mod biatrial enlargement, PASP 40-45 mmHg Hematuria - management per medical services Coronary artery disease - history of 4 vessel CABG in 1996 in [place] - Cardiac catheterization [place] [address] Cadet showing patent vein graft to the circumflex artery and vein graft to the right coronary artery, severe stenosis in the LAD, had 2 stents in the proximal LAD, underwent balloon angioplasty for in-stent restenosis, has severe stenosis in the diagonal branch that was not intervened on. - Cardiac catheterization on May 22, [address] Cadet showing moderate stenosis in the stent of the LAD and distal left main, moderate diffuse disease, diagonal branch still have severe stenosis small artery, occluded vein graft to the circumflex artery and has ostial stenosis of the vein graft to the right coronary artery, balloon angioplasty to the vein graft was done with good results. 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
--- NOTE | 2022-02-10 11:26 | Diagnostic Imaging Report ---
INDICATION: Shortness of breath. COMPARISON: 02/09/2022. FINDINGS: Portable exam. Cardiomegaly with median sternotomy changes. There has been improved aeration of the lungs without significant atelectasis. Increased interstitial markings remain present bilaterally. No consolidated infiltrates. The pulmonary vasculature does not appear to be significantly prominent. No pneumothorax or pleural effusion. IMPRESSION: 1. Postoperative residue with improved aeration. Continued bilateral diffuse interstitial infiltrates. Dictated by: Dictated on workstation # [id number]
--- NOTE | 2022-02-10 15:33 | Progress Note - Cardiology ---
Cardiology SOAP Progress Note Subjective: Has gen weakness and malaise No shortness of breath No cp or palp or syncope No leg swelling No n/v/d Objective: I&O/Vital Signs 02/10/22 02/10/22 02/10/22 02/10/22 04:00 04:10 05:00 06:00 Pulse 76 76 78 Resp 15 19 17 B/P (MAP) 105/57 (73) 105/57 (73) 104/59 (74) 103/61 (75) Pulse Ox 95 94 94 O2 Delivery High Flow N/C High Flow N/C High Flow N/C O2 Flow Rate 8.00 8.00 8.00 02/10/22 02/10/22 02/10/22 02/10/22 07:00 07:01 07:39 08:00 Pulse 75 75 74 Resp 23 15 B/P (MAP) 100/58 (72) 104/65 (78) Pulse Ox 96 93 93 O2 Delivery High Flow N/C High Flow N/C High Flow N/C O2 Flow Rate 8.00 8.00 8.00 02/10/22 02/10/22 02/10/22 02/10/22 08:00 08:24 08:30 09:00 Temp 37.1 Pulse 74 Resp 26 B/P (MAP) 108/70 (83) Pulse Ox 92 92 O2 Delivery High Flow N/C High Flow N/C High Flow N/C O2 Flow Rate 10.00 10.00 10.00 02/10/22 02/10/22 02/10/22 02/10/22 09:00 10:00 11:00 11:59 Temp 37.3 Pulse 78 75 Resp 31 15 B/P (MAP) 99/59 (72) 94/59 (71) Pulse Ox 93 96 97 O2 Delivery High Flow N/C High Flow N/C High Flow N/C O2 Flow Rate 10.00 10.00 10.00 02/10/22 02/10/22 02/10/22 02/10/22 12:00 13:00 13:00 15:04 Temp 36.5 Pulse 75 75 75 Resp 20 24 B/P (MAP) 106/69 (81) 102/58 (73) Pulse Ox 98 97 O2 Delivery High Flow N/C High Flow N/C O2 Flow Rate 10.00 10.00 02/10/22 00:00 Intake Total 990 ml Output Total 2550 ml Balance -1560 ml Constitutional: AAO x 3, well-developed, other (thin) Respiratory: No accessory muscle use, No respiratory distress; rhonchi (scattered), other (prolonged exp phase) Cardiovascular: irregularly irregular Gastrointestional: No tender; soft, audible bowel sounds Genital/Rectal: other (urinary catheter with hematuria) Extremities: no lower extremity edema bilateral Neurologic/Psychiatric: grossly intact (moves all extremities) Skin: No rash on exposed areas, No ulcerations on exposed areas Results/Procedures: Labs Laboratory Tests 02/09/22 15:45: Blood Gas Puncture Site RR, Blood Gas Patient Temperature 36.2, Arterial Blood pH 7.34*L, Arterial Blood Partial Pressure CO2 50H, Arterial Blood Partial Pressure O2 62L, Arterial Blood HCO3 26, Arterial Blood Total CO2 27.8, Arterial Blood Oxygen Saturation 90L, Arterial Blood Base Excess 0.9, John Test YES-POS, Blood Gas Ventilator Setting NO, Blood Gas Inspired Oxygen 6L 02/10/22 04:50: White Blood Count 13.4H, Red Blood Count 4.85, Hemoglobin 14.8, Hematocrit 44, Mean Corpuscular Volume 91, Mean Corpuscular Hemoglobin 31, Mean Corpuscular Hemoglobin Concent 34, Red Cell Distribution Width 15.0H, Platelet Count 181, Mean Platelet Volume 10.7, Immature Granulocyte % (Auto) 1, Neutrophils (%) (Auto) 89H, Lymphocytes (%) (Auto) 4L, Monocytes (%) (Auto) 7, Eosinophils (%) (Auto) 0, Basophils (%) (Auto) 0, Neutrophils # (Auto) 11.9H, Lymphocytes # (Auto) 0.5L, Monocytes # (Auto) 0.9, Eosinophils # (Auto) 0.0, Basophils # (Auto) 0.0, Immature Granulocyte # (Auto) 0.1, Neutrophils % (Manual) 89, Lymphocytes % (Manual) 8, Monocytes % (Manual) 3, Clumped Platelets OCCASIONAL, Elliptocytes SLIGHT, Sodium Level 136, Potassium Level 3.8, Chloride Level 99, Carbon Dioxide Level 24, Anion Gap 13, Blood Urea Nitrogen 27H, Creatinine 1.28, Estimat Glomerular Filtration Rate 59, BUN/Creatinine Ratio 21, Glucose Level 100, Calcium Level 9.1, Magnesium Level 1.5L, Procalcitonin 0.09 02/10/22 10:12: Influenza Type A (RT-PCR) Not Detected, Influenza Type B (RT-PCR) Not Detected, SARS-CoV-2 RNA (RT-PCR) Not Detected Microbiology 02/08/22 MRSA Screen - Final, Complete MRSA not isolated Laboratory Tests 02/09/22 03:13 02/10/22 04:50 A/P: Assessment: Newly dx atrial flutter w/ RVR - on EKG of 02-08-22 at [facility] ED - rate controlled - on oral Cardizem - OAC with Eliquis Type 2 [place] - probably precipitated by RVR Acute renal insuff (DESIRAE) due to volume depletion - improving with hydration ICM - Echocardiogram of 05-21-[address] Cadet showed LVEF 40-45%. Grade 1 diastolic dysfunction. Mild AoR. PASP 15-20 mmHg - Echo on 02/09/22: LVEF 40-45%, mod biatrial enlargement, PASP 40-45 mmHg Hematuria - management per Medical services Coronary artery disease - history of 4 vessel CABG in 1996 in [place] - Cardiac catheterization [place] [address] Cadet showing patent vein graft to the circumflex artery and vein graft to the right coronary artery, severe stenosis in the LAD, had 2 stents in the proximal LAD, underwent balloon angioplasty for in-stent restenosis, has severe stenosis in the diagonal branch that was not intervened on. - Cardiac catheterization on May 22, [address] Cadet showing moderate stenosis in the stent of the LAD and distal left main, moderate diffuse disease, diagonal branch still have severe stenosis small artery, occluded vein graft to the circumflex artery and has ostial stenosis of the vein graft to the right coronary artery, balloon angioplasty to the vein graft was done with good results. 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 CCDS Feb 10, 2022 15:33
--- NOTE | 2022-02-10 16:23 | Progress Note - Hospitalist ---
Subjective HPI/CC On Admission Date Seen by Provider: Feb 10, 2022 Time Seen by Provider: 09:30 Bria Crowder is a 76 year old male with PMH HTN, HLD, CAD s/p CABG and coronary stenting, HFrEF, COPD on home oxygen 2.5 L, who presented with chest tightness. He denies radiation to the shoulder, arm, neck, and jaw. He reports palpitatio ns. He was also very short of breath especially with exertion. He was diaphoretic. He denies nausea and vomiting. He has lower extremity swelling which he says has been there for years. He smokes cigars daily. He does not drink alcohol. Subjective/Events-last exam He is feeling ok. He is not short of breath. He denies pain. His leg swelling is gone. Objective Exam Vital Signs Vital Signs Date Time Temp Pulse Resp B/P (MAP) Pulse Ox O2 Delivery O2 Flow Rate FiO2 02/10/22 15:04 36.5 02/10/22 13:00 75 02/10/22 13:00 24 102/58 (73) 97 High Flow N/C 10.00 Capillary Refill : Less Than 3 Seconds General Appearance: No Apparent Distress, Chronically ill Respiratory: No Respiratory Distress, Decreased Breath Sounds Cardiovascular: Regular Rate, Rhythm, No Murmur Gastrointestinal: Normal Bowel Sounds, Soft Extremity: Normal Inspection, No Pedal Edema Neurologic/Psychiatric: Alert, Normal Mood/Affect Skin: Normal Color, Warm/Dry Results/Procedures Lab Laboratory Tests 02/10/22 04:50 Patient resulted labs reviewed. Imaging: Reviewed Imaging Report Assessment/Plan Assessment and Plan Assess & Plan/Chief Complaint Atrial flutter with rapid ventricular response New onset Cardiology following Cardizem Eliquis NSTEMI CAD s/p CABG Troponin elevated, presumed type II OK due to RVR Continue ASA and Plavix Acute on chronic HFrEF Acute on chronic respiratory failure with hypoxia Borderline EF 40-45% BNP elevated CXR with pulmonary edema Lasix Worsening hypoxia despite diuresis CT Chest ordered Hematuria Possibly traumatic Urology consulted, case discussed with Dr. Thibodeaux COPD Chronic respiratory failure with hypoxia Supplemental oxygen as needed, 2.5 L baseline requirement Hypomagnesemia Monitor and replace as needed HTN HLD DVT prophylaxis: already receiving therapeutic anticoagulation DESIRAE, resolved Critical Care Critically Ill Patient Diagnosis/Problems Diagnosis/Problems (1) Atrial flutter with rapid ventricular response Status: Acute (2) Acute on chronic HFrEF (heart failure with reduced ejection fraction) Status: Acute (3) NSTEMI (non-ST elevated myocardial infarction) Status: Acute (4) Coronary artery disease Status: Acute Qualifiers: Coronary Disease-Associated Artery/Lesion type: unspecified vessel or lesion type [place] vs. transplanted heart: [place] heart Associated angina: unspecified whether angina present Qualified Codes: I25.10 - Atherosclerotic heart disease of [place] coronary artery without angina pectoris (5) COPD (chronic obstructive pulmonary disease) Status: Chronic (6) Tobacco abuse Status: Chronic (7) Acute on chronic respiratory failure with hypoxia Status: Acute Clinical Quality Measures AMI/AHF: ASA po Prior to arrival: Yes MÓNICA NOVAK MD Feb 10, 2022 16:23
--- NOTE | 2022-02-10 16:39 | CONSULTATION REPORT ---
DATE OF SERVICE: 02/10/2022 ATTENDING PHYSICIAN: Dr. Olvera. SUMMARY: After reviewing the patient's record, interviewing him, and examining him this 76-year-old white man who was admitted 2 days ago with CHF and new onset of atrial fibrillation. He has a history of coronary artery disease and at home, he was on aspirin and Plavix. The Plavix was held and he was started on Eliquis. A catheter was inserted in the emergency room and the next day, he started having hematuria with no clots, never had hematuria before, did not have it before admission, does have a history of prostatism in the form of nocturia, frequency, slowing of the stream and urinary retention. His recent PSA by Dr. Pitt, according to him and was normal. He has never mentioned his symptoms to Dr. Pitt, so he is not on any prostate medicine. His urine is reddish, but no clots and a catheter is draining well. IMPRESSION: 1. Gross hematuria with BPH and prostatism, possibly related to traumatic from the Gonzalez catheter insertion. PLAN: We will observe for now. We will check with Cardiology, who can put some fluids to clear the urine and manage accordingly. Plans were explained to the patient and his and discussed with Dr. Olvera. CC: Dr. Olvera ? requested, unable to deliver Job ID: [id number] DocumentID: [id number] Dictated Date: 02/10/2022 10:41:55 Board Certified Orthodontist Date: 02/10/2022 16:37:00 Dictated By: ENOC MULTANI MD
--- NOTE | 2022-02-10 16:56 | Diagnostic Imaging Report ---
EXAMINATION: CT chest with intravenous contrast. TECHNIQUE: Multiple contiguous axial images were obtained through the chest after the uneventful administration of intravenous contrast. All CT scans use one or more of the following dose optimizing techniques: automated exposure control, MA and/or KvP adjustment based on patient size and exam type or iterative reconstruction. HISTORY: Chest pain COMPARISON: None available. FINDINGS: There is moderate pulmonary edema. There are small bilateral pleural effusions. No pneumonia. No pneumothorax. No suspicious nodules. There is no axillary or supraclavicular lymphadenopathy. There are mildly enlarged mediastinal lymph nodes that are likely reactive. Heart is enlarged. There are moderate coronary artery calcifications. No pericardial effusion. Aorta is normal in caliber. There has been coronary artery bypass grafting. Limited views of the upper abdomen show gallbladder wall edema. Likely related to generalized edema. There is flash filling hemangioma in the liver. There is diffuse body wall edema. There are no suspicious osseus lesions. IMPRESSION: 1. Moderate pulmonary edema with small pleural effusions and diffuse body wall edema. Dictated by: Dictated on workstation # [id number]
[2022-02-10] MEDS ORDERED: KCL 20 MEQ TAB (K-DUR) PO NR (17:30)
[2022-02-10] MEDS ORDERED: ANTACID SUSP 30 ML UDC (MYLANTA) PO NR (17:30)
[2022-02-10] MEDS ORDERED: PANTOPRAZOLE 40 MG (PROTONIX) VIAL IV NR (17:30)
[2022-02-10] MEDS: RT-ALBUTEROL/IPRATROPIUM 3 ML (DUONEB) VIAL INH SCH (18:37)
[2022-02-10] MEDS ORDERED: ANTACID SUSP 30 ML UDC (MYLANTA) PO PRN (21:00)
[2022-02-10] MEDS: NOREPINEPHRINE 8 MG/250 ML 250 ML IV SCH (22:21)
[2022-02-11] MEDS: RT--FLUTICASONE/SALMETEROL 113-14 (AIRDUO RespiCLICK) IH SCH ×3 (00:43→21:54)
[2022-02-11] MEDS: RT-ALBUTEROL/IPRATROPIUM 3 ML (DUONEB) VIAL INH SCH ×6 (00:45→21:53)
[2022-02-11 02:25] VITALS: BP 124/74
[2022-02-11 05:30] LABS: BASOPHILS % (AUTO) 0 % (0-10); EOSINOPHILS % (AUTO) 0 % (0-10); HEMATOCRIT 41 % (40-54); HEMOGLOBIN 14.1 g/dL (13.3-17.7); LYMPHOCYTES # (AUTO) 0.5 10^3/uL (1.0-4.0); LYMPHOCYTES % (AUTO) 5 % (12-44); MEAN CORPUSCULAR HEMOGLOBIN 31 pg (25-34); MEAN CORPUSCULAR HGB CONC 34 g/dL (32-36); MEAN CORPUSCULAR VOLUME 90 fL (80-99); MEAN PLATELET VOLUME 11.1 fL (9.0-12.2); MONOCYTES # (AUTO) 0.9 10^3/uL (0.0-1.0); MONOCYTES % (AUTO) 8 % (0-12); NEUTROPHILS # (AUTO) 10.1 10^3/uL (1.8-7.8); NEUTROPHILS % (AUTO) 87 % (42-75); PLATELET COUNT 183 10^3/uL (130-400); WHITE BLOOD COUNT 11.6 10^3/uL (4.3-11.0)
[2022-02-11 05:51] LABS: CALCIUM 9.1 MG/DL (8.5-10.1); CREATININE SERUM 1.36 MG/DL (0.60-1.30); POTASSIUM 4.2 MMOL/L (3.6-5.0)
[2022-02-11] MEDS: POTASSIUM CL 10MEQ/50ML IVPB 50 ML IV SCH (05:57)
[2022-02-11] MEDS: KCL 20 MEQ TAB (K-DUR) PO SCH (05:57)
[2022-02-11] MEDS: MAGNESIUM 1 GM/100 ML IVPB 100 ML IV SCH (06:00)
--- NOTE | 2022-02-11 08:47 | Progress Note - Cardiology ---
Cardiology SOAP Progress Note Subjective: Reports increasing SOB yesterday evening with chest heaviness No c/o CP this morning RN reports d/t hypotension he was placed on pessor support overnight Objective: I&O/Vital Signs 02/10/22 02/11/22 02/11/22 02/11/22 23:59 00:00 00:50 01:00 Pulse 71 81 Resp 16 17 B/P (MAP) 98/58 (71) 107/63 106/69 (81) Pulse Ox 94 98 96 O2 Delivery Vapotherm Vapotherm Vapotherm O2 Flow Rate 20.00 25.00 25.00 75.00 75.00 FiO2 70 02/11/22 02/11/22 02/11/22 02/11/22 01:00 02:00 02:25 02:39 Pulse 72 64 84 Resp 28 22 B/P (MAP) 124/74 (91) Pulse Ox 94 94 O2 Delivery Vapotherm NIV Bilevel O2 Flow Rate 25.00 40.00 40.00 75.00 02/11/22 02/11/22 02/11/22 02/11/22 02:40 03:00 04:00 04:00 Pulse 74 80 Resp 17 16 B/P (MAP) 109/64 110/67 (81) 107/57 (74) Pulse Ox 95 94 94 O2 Delivery NIV Bilevel NIV Bilevel NIV Bilevel O2 Flow Rate 40.00 40.00 FiO2 40 02/11/22 02/11/22 02/11/22 02/11/22 05:00 06:00 06:59 07:00 Pulse 77 75 87 Resp 16 25 25 B/P (MAP) 102/58 (73) 97/65 (76) 90/55 (67) Pulse Ox 95 94 93 97 O2 Delivery NIV Bilevel NIV Bilevel Vapotherm NIV Bilevel O2 Flow Rate 40.00 40.00 25.00 40.00 FiO2 80 02/11/22 02/11/22 02/11/22 02/11/22 07:00 07:36 08:00 08:00 Temp 36.5 Pulse 77 79 Resp 20 B/P (MAP) 99/67 (78) Pulse Ox 94 98 O2 Delivery NIV Bilevel NIV Bilevel O2 Flow Rate 40.00 FiO2 40 12/9/22 12/9/22 12/9/22 12/9/22 09:00 10:00 11:00 11:16 Pulse 85 89 85 Resp 21 23 22 B/P (MAP) 116/70 (85) 112/85 (94) 105/67 (80) Pulse Ox 96 97 98 96 O2 Delivery NIV Bilevel NIV Bilevel NIV Bilevel Vapotherm O2 Flow Rate 40.00 40.00 40.00 20.00 FiO2 45 02/11/22 11:47 Temp 36.8 02/11/22 00:00 Intake Total 950 ml Output Total 800 ml Balance 150 ml Constitutional: AAO x 3, well-developed, other (thin) Respiratory: No accessory muscle use, No respiratory distress; rhonchi (scattered), other (prolonged exp phase) Cardiovascular: irregularly irregular Gastrointestional: No tender; soft, audible bowel sounds Genital/Rectal: other (urinary catheter with hematuria) Extremities: no lower extremity edema bilateral Neurologic/Psychiatric: grossly intact (moves all extremities) Skin: No rash on exposed areas, No ulcerations on exposed areas Results/Procedures: Labs Laboratory Tests 02/11/22 04:55: White Blood Count 11.6H, Red Blood Count 4.59, Hemoglobin 14.1, Hematocrit 41, Mean Corpuscular Volume 90, Mean Corpuscular Hemoglobin 31, Mean Corpuscular Hemoglobin Concent 34, Red Cell Distribution Width 14.9H, Platelet Count 183, Mean Platelet Volume 11.1, Immature Granulocyte % (Auto) 0, Neutrophils (%) (Auto) 87H, Lymphocytes (%) (Auto) 5L, Monocytes (%) (Auto) 8, Eosinophils (%) (Auto) 0, Basophils (%) (Auto) 0, Neutrophils # (Auto) 10.1H, Lymphocytes # (Auto) 0.5L, Monocytes # (Auto) 0.9, Eosinophils # (Auto) 0.0, Basophils # (Auto) 0.0, Immature Granulocyte # (Auto) 0.0, Sodium Level 133L, Potassium Level 4.2, Chloride Level 97L, Carbon Dioxide Level 25, Anion Gap 11, Blood Urea Nitrogen 33H, Creatinine 1.36H, Estimat Glomerular Filtration Rate 55, BUN/Creatinine Ratio 24, Glucose Level 103, Calcium Level 9.1, Magnesium Level 2.1 Microbiology 02/08/22 MRSA Screen - Final, Complete MRSA not isolated A/P: Assessment: Newly dx atrial flutter w/ RVR - on EKG of 02-08-22 at [facility] ED - rate controlled - on oral Cardizem - OAC with Eliquis Type 2 [place] - probably precipitated by RVR Acute renal insuff (DESIRAE) due to volume depletion - improving with hydration ICM - Echocardiogram of 05-21-[address] Cadet showed LVEF 40-45%. Grade 1 diastolic dysfunction. Mild AoR. PASP 15-20 mmHg - Echo on 02/09/22: LVEF 40-45%, mod biatrial enlargement, PASP 40-45 mmHg Hematuria - management per Medical services Coronary artery disease - history of 4 vessel CABG in 1996 in [place] - Cardiac catheter[place] [address] Cadet showing patent vein graft to the circumflex artery and vein graft to the right coronary artery, severe stenosis in the LAD, had 2 stents in the proximal LAD, underwent balloon angioplasty for in-stent restenosis, has severe stenosis in the diagonal branch that was not intervened on. - Cardiac catheterization on May 22, [address] Cadet showing moderate konstantin nosis in the stent of the LAD and distal left main, moderate diffuse disease, diagonal branch still have severe stenosis small artery, occluded vein graft to the circumflex artery and has ostial stenosis of the vein graft to the right coronary artery, balloon angioplasty to the vein graft was done with good results. 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 Plan: * Eliquis for stroke prophylaxis - eliquis being held d/t continuing gross hematuria of undetermined etiology * Became hypotensive overnight requiring pressor support * Poor urine output, with worsening Cr and with continued hematuria - give IVF today * Increasing SOB - CXR today * Continue ASA for CAD * Continue oral diltiazem, but reduce rate d/t hypotension - remains in a- flutter with controlled rate * Continues to have gross hematuria - medical/urology services managing * Monitor labs - replace electrolytes Clinical Quality Measures AMI/AHF: ASA po Prior to arrival: Yes MIRNA SHARMA Feb 11, 2022 08:47
[2022-02-11] MEDS: FUROSEMIDE 40 MG/4 ML INJ (LASIX) IVP SCH (09:00)
[2022-02-11] MEDS ORDERED: FUROSEMIDE 40 MG/4 ML INJ (LASIX) IVP SCH (09:00)
[2022-02-11] MEDS: SENNOSIDES 8.6 MG (SENOKOT) TAB PO SCH ×2 (09:00→22:10)
[2022-02-11] MEDS: NS IV 1000 ML 1,000 ML IV SCH ×3 (09:00→22:11)
[2022-02-11] MEDS ORDERED: NS (IVPB) 250 ML IV ONE (09:00)
--- NOTE | 2022-02-11 09:17 | Tele-ICU Progress Note ---
Subjective Date Seen by a Provider: Feb 11, 2022 Subjective/Events-last exam This virtual visit was conducted using real time audio/video. Thank you for asking us to see this patient for respiratory insufficiency due to COPD on home O2 2.5 LPM. Admitted w aflutter/RVR. Recent events: hematuria ? due to Gonzalez insertion. PE: VSS. 80-100 irreg. O2 sat 98% on VT 40 LPM/70%. HEENT: No obvious masses, adenopathy or JVD. Chest:diminished, coarse on auscultation. CV: Irreg S1 S2 No murmur or added sounds. Abd: Non-tender. Bowel sounds Y. : Unremarkable. Gonzalez Y. SIGN MAINTENANCE/psychiatric: Grossly intact. No obvious focal findings. Extremities: No edema. Capillary refill < 3 seconds. Skin: unremarkable. Results: Elevated WCC 11.6, better, BUN 33, Creat 1.36. Decreased Na 133. B.34/50/62 on 6 LPM. CXR: Hyperinflated, B congestion. CTC: B effusions, congestion. Available chart/ vitals / labs / images reviewed. Video assessment done using teleICU camera, rest of exam as per RN. A/P: Respiratory insufficiency: Continue present management with VT, weaning as miah.Cont Airduo, Duonebs. Monitor for increasing oxygenation needs and/or need for intubation. Critical Care: critically ill patient. Cont. cardizem, ASA, Lasix, PPI. Eliquis held. Discussed with RN Perla. Asked RN to reach out to eICU if any questions or c oncerns later. Time spent with patient/coordination of care with other health professionals (mins): 18 Sepsis Event Evaluation Height, Weight, BMI Height: '" Weight: lbs. oz. kg; 23.66 BMI Method:Stated Exam Exam Patient acknowledged, consented, and participated in this virtual visit which was conducted using real time audio/video Vital Signs Date Time Temp Pulse Resp B/P (MAP) Pulse Ox O2 Delivery O2 Flow Rate FiO2 02/11/22 08:00 79 20 99/67 (78) 98 NIV Bilevel 40.00 02/11/22 07:36 36.5 02/11/22 07:00 77 02/11/22 07:00 87 25 90/55 (67) 97 NIV Bilevel 40.00 02/11/22 06:59 93 Vapotherm 25.00 80 02/11/22 06:00 75 25 97/65 (76) 94 NIV Bilevel 40.00 02/11/22 05:00 77 16 102/58 (73) 95 NIV Bilevel 40.00 02/11/22 04:00 94 NIV Bilevel 40 02/11/22 04:00 80 16 107/57 (74) 94 NIV Bilevel 40.00 02/11/22 03:00 74 17 110/67 (81) 95 NIV Bilevel 40.00 02/11/22 02:40 109/64 02/11/22 02:39 NIV Bilevel 40.00 02/11/22 02:25 84 22 94 40.00 02/11/22 02:00 64 28 124/74 (91) 94 Vapotherm 25.00 75.00 02/11/22 01:00 72 02/11/22 01:00 81 17 106/69 (81) 96 Vapotherm 25.00 75.00 02/11/22 00:50 107/63 02/11/22 00:00 71 16 98/58 (71) 98 Vapotherm 25.00 75.00 02/10/22 23:59 94 Vapotherm 20.00 70 02/10/22 23:40 79/53 02/10/22 23:00 Vapotherm 25.00 75.00 02/10/22 23:00 70 21 96/58 (71) 100 Vapotherm 25.00 75.00 02/10/22 22:40 94 Vapotherm 25.00 65 02/10/22 22:40 136/64 02/10/22 22:33 75 Vapotherm 25.00 65 02/10/22 22:21 79/46 02/10/22 22:00 64 17 92/54 (67) 90 Vapotherm 30.00 65.00 02/10/22 21:00 67 15 76/47 (57) 92 Vapotherm 30.00 65.00 02/10/22 20:00 68 24 84/46 (59) 95 Vapotherm 30.00 65.00 02/10/22 19:38 36.3 02/10/22 19:00 71 29 91/52 (65) 99 Vapotherm 30.00 65.00 02/10/22 19:00 76 02/10/22 18:40 98 Vapotherm 30.00 65 02/10/22 18:00 64 18 87/54 (65) 98 Vapotherm 30.00 65.00 02/10/22 17:17 Vapotherm 30.00 65.00 02/10/22 17:15 95 Vapotherm 30.00 65 02/10/22 17:00 77 25 83/53 (63) 89 High Flow N/C 10.00 02/10/22 16:00 75 23 97/52 (67) 95 High Flow N/C 10.00 02/10/22 15:04 36.5 02/10/22 15:00 74 23 109/59 (76) 95 High Flow N/C 10.00 02/10/22 14:45 92 High Flow N/C 10.00 02/10/22 14:00 75 23 109/62 (78) 94 High Flow N/C 10.00 02/10/22 13:00 75 02/10/22 13:00 75 24 102/58 (73) 97 High Flow N/C 10.00 02/10/22 12:00 75 20 106/69 (81) 98 High Flow N/C 10.00 02/10/22 11:59 37.3 02/10/22 11:00 75 15 94/59 (71) 97 High Flow N/C 10.00 02/10/22 10:00 78 31 99/59 (72) 96 High Flow N/C 10.00 I & O 02/11/22 07:00 Intake Total 1640 ml Output Total 1650 ml Balance -10 ml Height & Weight Height: '" Weight: lbs. oz. kg; 23.66 BMI Method:Stated General Appearance: No Apparent Distress, Chronically ill HEENT: PERRL/EOMI, Pharynx Normal Neck: Normal Inspection, Supple Respiratory: No Respiratory Distress, Decreased Breath Sounds Cardiovascular: Regular Rate, Rhythm, No Murmur Capillary Refill: Less Than 3 Seconds Gastrointestinal: normal bowel sounds, non tender, soft Extremity: Normal Inspection, No Pedal Edema Neurologic/Psychiatric: Alert, Normal Mood/Affect Skin: Normal Color, Warm/Dry Results Lab Laboratory Tests 02/10/22 04:50 02/11/22 04:55 Assessment/Plan Assessment/Plan See free text. Critical Care: Critically Ill Patient MIKE HALE MD Feb 11, 2022 09:17
--- NOTE | 2022-02-11 09:22 | Diagnostic Imaging Report ---
Indication: Increasing shortness of breath. Time of Exam: 9:08 AM Correlation is made with prior chest one day earlier. Changes of median sternotomy are noted. Heart is enlarged. There are interstitial infiltrates bilaterally. Some increasing airspace infiltrate in the right base as well. No effusion or pneumothorax is identified. IMPRESSION: Increasing pulmonary infiltrates since examination one day earlier. Dictated by: Dictated on workstation # [id number]
--- NOTE | 2022-02-11 09:30 | Progress Note - Cardiology ---
Cardiology SOAP Progress Note Subjective: Had chest discomfort and shortness of breath yesterday, none today Gen weakness and malaise No n/v/d Objective: I&O/Vital Signs 02/10/22 02/10/22 02/10/22 02/10/22 22:00 22:21 22:33 22:40 Pulse 64 Resp 17 B/P (MAP) 92/54 (67) 79/46 136/64 Pulse Ox 90 75 O2 Delivery Vapotherm Vapotherm O2 Flow Rate 30.00 25.00 65.00 FiO2 65 02/10/22 02/10/22 02/10/22 02/10/22 22:40 23:00 23:00 23:40 Pulse 70 Resp 21 B/P (MAP) 96/58 (71) 79/53 Pulse Ox 94 100 O2 Delivery Vapotherm Vapotherm Vapotherm O2 Flow Rate 25.00 25.00 25.00 75.00 75.00 FiO2 65 02/10/22 02/11/22 02/11/22 02/11/22 23:59 00:00 00:50 01:00 Pulse 71 81 Resp 16 17 B/P (MAP) 98/58 (71) 107/63 106/69 (81) Pulse Ox 94 98 96 O2 Delivery Vapotherm Vapotherm Vapotherm O2 Flow Rate 20.00 25.00 25.00 75.00 75.00 FiO2 70 02/11/22 02/11/22 02/11/22 02/11/22 01:00 02:00 02:25 02:39 Pulse 72 64 84 Resp 28 22 B/P (MAP) 124/74 (91) Pulse Ox 94 94 O2 Delivery Vapotherm NIV Bilevel O2 Flow Rate 25.00 40.00 40.00 75.00 02/11/22 02/11/22 02/11/22 02/11/22 02:40 03:00 04:00 04:00 Pulse 74 80 Resp 17 16 B/P (MAP) 109/64 110/67 (81) 107/57 (74) Pulse Ox 95 94 94 O2 Delivery NIV Bilevel NIV Bilevel NIV Bilevel O2 Flow Rate 40.00 40.00 FiO2 40 02/11/22 02/11/22 02/11/22 02/11/22 05:00 06:00 06:59 07:00 Pulse 77 75 87 Resp 16 25 25 B/P (MAP) 102/58 (73) 97/65 (76) 90/55 (67) Pulse Ox 95 94 93 97 O2 Delivery NIV Bilevel NIV Bilevel Vapotherm NIV Bilevel O2 Flow Rate 40.00 40.00 25.00 40.00 FiO2 80 02/11/22 02/11/22 02/11/22 07:00 07:36 08:00 Temp 36.5 Pulse 77 79 Resp 20 B/P (MAP) 99/67 (78) Pulse Ox 98 O2 Delivery NIV Bilevel O2 Flow Rate 40.00 02/11/22 00:00 Intake Total 950 ml Output Total 800 ml Balance 150 ml Constitutional: AAO x 3, well-developed, other (thin-appearing) Respiratory: No accessory muscle use, No respiratory distress; rhonchi (scattered), other (prolonged exp phase) Cardiovascular: irregularly irregular Gastrointestional: No tender; soft, audible bowel sounds Genital/Rectal: other (urinary catheter with hematuria) Extremities: no lower extremity edema bilateral Neurologic/Psychiatric: grossly intact (moves all extremities) Skin: No rash on exposed areas, No ulcerations on exposed areas Results/Procedures: Labs Laboratory Tests 02/10/22 10:12: Influenza Type A (RT-PCR) Not Detected, Influenza Type B (RT-PCR) Not Detected, SARS-CoV-2 RNA (RT-PCR) Not Detected 02/11/22 04:55: White Blood Count 11.6H, Red Blood Count 4.59, Hemoglobin 14.1, Hematocrit 41, Mean Corpuscular Volume 90, Mean Corpuscular Hemoglobin 31, Mean Corpuscular Hemoglobin Concent 34, Red Cell Distribution Width 14.9H, Platelet Count 183, Mean Platelet Volume 11.1, Immature Granulocyte % (Auto) 0, Neutrophils (%) (Auto) 87H, Lymphocytes (%) (Auto) 5L, Monocytes (%) (Auto) 8, Eosinophils (%) (Auto) 0, Basophils (%) (Auto) 0, Neutrophils # (Auto) 10.1H, Lymphocytes # (Auto) 0.5L, Monocytes # (Auto) 0.9, Eosinophils # (Auto) 0.0, Basophils # (Auto) 0.0, Immature Granulocyte # (Auto) 0.0, Sodium Level 133L, Potassium Level 4.2, Chloride Level 97L, Carbon Dioxide Level 25, Anion Gap 11, Blood Urea Nitrogen 33H, Creatinine 1.36H, Estimat Glomerular Filtration Rate 55, BUN/Creatinine Ratio 24, Glucose Level 103, Calcium Level 9.1, Magnesium Level 2.1 Microbiology 02/08/22 MRSA Screen - Final, Complete MRSA not isolated Laboratory Tests 02/10/22 04:50 02/11/22 04:55 A/P: Assessment: Newly dx atrial flutter w/ RVR - on EKG of 02-08-22 at [facility] ED - rate controlled - on oral Cardizem - OAC with Eliquis Type 2 [place] - RVR in presence of underlying CAD Acute renal insuff (DESIRAE) due to volume depletion - hydration improved azotemia but led to volume overload - now on diuretics ICM - Echocardiogram of 05-21-[address] Cadet showed LVEF 40-45%. Grade 1 diastolic dysfunction. Mild AoR. PASP 15-20 mmHg - Echo on 02/09/22: LVEF 40-45%, mod biatrial enlargement, PASP 40-45 mmHg Hematuria - management per Medical services Coronary artery disease - history of 4 vessel CABG in 1996 in [place] - Cardiac catheterization [place] [address] Cadet showing patent vein graft to the circumflex artery and vein graft to the right coronary artery, severe stenosis in the LAD, had 2 stents in the proximal LAD, underwent balloon angioplasty for in-stent restenosis, has severe stenosis in the diagonal branch that was not intervened on. - Cardiac catheterization on May 22, [address] Cadet showing moderate stenosis in the stent of the LAD and distal left main, moderate diffuse disease, diagonal branch had significatn disase but was a small artery, occluded vein graft to the circumflex artery and had moderately severe ostial stenosis of the vein graft to the right coronary artery to which balloon angioplasty was undertaken with good results H/o hypertension but hypotensive on 02/11/22 (?sepsis) Hyperlipidemia Tobaccoism - 1/2 PPD of cigs - cessation advised DM 2 COPD - oxygen dependent 2.5L/NC Plan: * Eliquis for stroke prophylaxis - Eliquis being held d/t continuing gross hematuria of undetermined etiology * Became hypotensive overnight requiring pressor support * Poor urine output, with worsening Cr and with continued hematuria - give IVF today * Increasing SOB - CXR today * Continue ASA for CAD * Continue oral diltiazem, but reduce dose d/t hypotension - remains in a- flutter with controlled rate * Monitor labs - replace electrolytes Clinical Quality Measures AMI/AHF: ASA po Prior to arrival: Yes MONICA CRUZ MD [facility] Feb 11, 2022 09:30
--- NOTE | 2022-02-11 09:35 | Progress Note - Urology ---
Progress Note-Urology Progress Notes/Assess & Plan Progress/Assessment & Plan URINE DARK KEEP SAME Final Diagnosis GROSS HEMATURIA ENOC MULTANI MD Feb 11, 2022 09:35
[2022-02-11] MEDS: PANTOPRAZOLE 40 MG (PROTONIX) TAB PO SCH (09:52)
[2022-02-11] MEDS: dilTIAZem120 MG (CARDIZEM CD) CAP PO SCH (09:52)
[2022-02-11] MEDS: DOCUSATE SODIUM 100 MG (COLACE) CAP PO SCH ×2 (09:52→22:10)
[2022-02-11] MEDS: ASPIRIN 81 MG CHEW (CHILDREN'S ASA) PO SCH (09:52)
--- NOTE | 2022-02-11 13:02 | Progress Note - Hospitalist ---
Subjective HPI/CC On Admission Date Seen by Provider: Feb 11, 2022 Time Seen by Provider: 10:15 Bria Crowder is a 76 year old male with PMH HTN, HLD, CAD s/p CABG and coronary stenting, HFrEF, COPD on home oxygen 2.5 L, who presented with chest tightness. He denies radiation to the shoulder, arm, neck, and jaw. He reports palpitatio ns. He was also very short of breath especially with exertion. He was diaphoretic. He denies nausea and vomiting. He has lower extremity swelling which he says has been there for years. He smokes cigars daily. He does not drink alcohol. Subjective/Events-last exam He is feeling about the same. He denies shortness of breath. He denies pain. He does not have any leg edema. Objective Exam Vital Signs Vital Signs Date Time Temp Pulse Resp B/P (MAP) Pulse Ox O2 Delivery O2 Flow Rate FiO2 02/11/22 12:00 78 25 92/53 (66) 93 NIV Bilevel 40.00 02/11/22 11:47 36.8 02/11/22 11:16 45 Capillary Refill : Less Than 3 Seconds General Appearance: No Apparent Distress, Chronically ill Respiratory: No Respiratory Distress, Decreased Breath Sounds Cardiovascular: Regular Rate, Rhythm, No Murmur Gastrointestinal: Normal Bowel Sounds, Soft Extremity: Normal Inspection, No Pedal Edema Neurologic/Psychiatric: Alert, Normal Mood/Affect Skin: Normal Color, Warm/Dry Results/Procedures Lab Laboratory Tests 02/11/22 04:55 Patient resulted labs reviewed. Imaging: Reviewed Imaging Report Assessment/Plan Assessment and Plan Assess & Plan/Chief Complaint Acute on chronic HFrEF Acute on chronic respiratory failure with hypoxia Borderline EF 40-45% Worsening hypoxia, now on Vapotherm CT Chest with pulmonary edema CXR today with worsening pulmonary edema Increase Lasix Atrial flutter with rapid ventricular response New onset Cardiology following Cardizem Eliquis NSTEMI CAD s/p CABG Troponin elevated, presumed type II CA due to RVR Continue ASA and Plavix Hematuria Possibly traumatic Urology following Begin Flomax when BP improves COPD Chronic respiratory failure with hypoxia Supplemental oxygen as needed, 2.5 L baseline requirement Hypomagnesemia Monitor and replace as needed HTN HLD DVT prophylaxis: already receiving therapeutic anticoagulation DESIRAE, resolved Critical Care Critically Ill Patient Diagnosis/Problems Diagnosis/Problems (1) Atrial flutter with rapid ventricular response Status: Acute (2) Acute on chronic HFrEF (heart failure with reduced ejection fraction) Status: Acute (3) NSTEMI (non-ST elevated myocardial infarction) Status: Acute (4) Coronary artery disease Status: Acute Qualifiers: Coronary Disease-Associated Artery/Lesion type: unspecified vessel or lesion type [place] vs. transplanted heart: [place] heart Associated angina: unspecified whether angina present Qualified Codes: I25.10 - Atherosclerotic heart disease of [place] coronary artery without angina pectoris (5) COPD (chronic obstructive pulmonary disease) Status: Chronic (6) Tobacco abuse Status: Chronic (7) Acute on chronic respiratory failure with hypoxia Status: Acute Clinical Quality Measures AMI/AHF: ASA po Prior to arrival: Yes MÓNICA NOVAK MD Feb 11, 2022 13:02
[2022-02-11 13:36] VITALS: BP 92/53
[2022-02-11] MEDS: NOREPINEPHRINE 8 MG/250 ML 250 ML IV SCH (18:07)
[2022-02-12 05:13] LABS: BASOPHILS % (AUTO) 0 % (0-10); EOSINOPHILS % (AUTO) 0 % (0-10); HEMATOCRIT 41 % (40-54); HEMOGLOBIN 13.8 g/dL (13.3-17.7); LYMPHOCYTES # (AUTO) 0.5 10^3/uL (1.0-4.0); LYMPHOCYTES % (AUTO) 5 % (12-44); MEAN CORPUSCULAR HEMOGLOBIN 31 pg (25-34); MEAN CORPUSCULAR HGB CONC 34 g/dL (32-36); MEAN CORPUSCULAR VOLUME 91 fL (80-99); MEAN PLATELET VOLUME 11.2 fL (9.0-12.2); MONOCYTES # (AUTO) 0.9 10^3/uL (0.0-1.0); MONOCYTES % (AUTO) 9 % (0-12); NEUTROPHILS # (AUTO) 8.6 10^3/uL (1.8-7.8); NEUTROPHILS % (AUTO) 86 % (42-75); PLATELET COUNT 181 10^3/uL (130-400); WHITE BLOOD COUNT 10.1 10^3/uL (4.3-11.0)
[2022-02-12] MEDS: morphine INJ 4 MG/ML 1 ML (VIAL/SYRINGE) IVP PRN ×3 (05:13→08:41)
[2022-02-12 05:33] LABS: CALCIUM 9.1 MG/DL (8.5-10.1); CREATININE SERUM 1.2 MG/DL (0.60-1.30)
[2022-02-12] MEDS: POTASSIUM CL 10MEQ/50ML IVPB 50 ML IV SCH (05:40)
[2022-02-12] MEDS: KCL 20 MEQ TAB (K-DUR) PO SCH (05:40)
[2022-02-12] MEDS: MAGNESIUM 1 GM/100 ML IVPB 100 ML IV SCH (05:40)
[2022-02-12] MEDS: ASPIRIN 81 MG CHEW (CHILDREN'S ASA) PO SCH (08:42)
[2022-02-12] MEDS: FUROSEMIDE 40 MG/4 ML INJ (LASIX) IVP SCH (08:42)
[2022-02-12] MEDS: PANTOPRAZOLE 40 MG (PROTONIX) TAB PO SCH (08:42)
[2022-02-12] MEDS: dilTIAZem120 MG (CARDIZEM CD) CAP PO SCH (08:42)
[2022-02-12] MEDS: RT-ALBUTEROL/IPRATROPIUM 3 ML (DUONEB) VIAL INH SCH ×4 (09:01→21:31)
--- NOTE | 2022-02-12 09:03 | Tele-ICU Progress Note ---
Subjective Date Seen by a Provider: Feb 12, 2022 Subjective/Events-last exam This virtual visit was conducted using real time audio/video. Thank you for asking us to see this patient for respiratory insufficiency due to COPD on home O2 2.5 LPM. Admitted w aflutter/RVR. Recent events: hematuria still present ? due to Gonzalez insertion. PE: VSS. 100-120 irreg. O2 sat 94% on VT 20 LPM/50%, improving. HEENT: No obvious masses, adenopathy or JVD. Chest:diminished, coarse on auscultation. CV: Irreg S1 S2 No murmur or added sounds. Abd: Non-tender. Bowel sounds Y. : Unremarkable. Gonzalez Y. 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 No obvious focal findings. Extremities: No edema. Capillary refill < 3 seconds. Skin: unremarkable. Results: Normal WCC, BUN 31. B.34/50/62 on 6 LPM. CXR: Hyperinflated, B congestion. CTC: B effusions, congestion. Available chart/ vitals / labs / images reviewed. Video assessment done using teleICU camera, rest of exam as per RN. A/P: Respiratory insufficiency: Continue present management with VT, weaning as miah. Cont Airduo, Duonebs. Monitor for increasing oxygenation needs and/or need for intubation. Critical Care: critically ill patient. Cont. cardizem, ASA, Lasix, PPI. Eliquis held. Discussed with RN Perla. Asked RN to reach out to eICU if any questions or concerns later. Time spent with patient/coordination of care with other health professionals (mins): 15 Sepsis Event Evaluation Height, Weight, BMI Height: '" Weight: lbs. oz. kg; 23.66 BMI Method:Stated Exam Exam Patient acknowledged, consented, and participated in this virtual visit which was conducted using real time audio/video Vital Signs Date Time Temp Pulse Resp B/P (MAP) Pulse Ox O2 Delivery O2 Flow Rate FiO2 02/12/22 08:00 122 16 119/87 (98) 92 NIV Bilevel 40.00 02/12/22 07:51 37.1 02/12/22 07:00 122 23 120/72 (88) 93 NIV Bilevel 40.00 02/12/22 07:00 109 02/12/22 06:46 NIV Bilevel 40.00 02/12/22 06:00 120 14 111/65 (80) 92 Vapotherm 20.00 60.00 02/12/22 05:39 37.0 02/12/22 05:00 122 21 136/82 (100) 91 Vapotherm 20.00 60.00 02/12/22 04:00 95 Vapotherm 20.00 60 02/12/22 04:00 98 22 128/72 (90) 93 Vapotherm 20.00 60.00 02/12/22 03:00 89 18 125/69 (87) 95 Vapotherm 20.00 60.00 02/12/22 02:00 97 20 116/63 (80) 97 Vapotherm 20.00 60.00 02/12/22 01:00 109 02/12/22 01:00 92 15 105/57 (73) 96 Vapotherm 20.00 60.00 02/12/22 00:00 96 20 101/53 (69) 95 Vapotherm 20.00 60.00 02/11/22 23:59 95 Vapotherm 20.00 60 02/11/22 23:00 96 16 102/57 (72) 95 Vapotherm 20.00 60.00 02/11/22 22:00 90 28 104/58 (73) 94 Vapotherm 20.00 60.00 02/11/22 21:54 95 Vapotherm 20.00 50 02/11/22 21:00 73 27 104/59 (74) 94 Vapotherm 20.00 60.00 02/11/22 20:14 Vapotherm 20.00 60.00 02/11/22 20:00 95 Vapotherm 20.00 60 02/11/22 20:00 81 25 109/84 (92) 96 Vapotherm 20.00 60.00 02/11/22 19:41 36.7 02/11/22 19:00 87 24 107/59 (75) 97 Vapotherm 20.00 60.00 02/11/22 19:00 87 02/11/22 18:00 87 26 104/78 (87) 92 NIV Bilevel 40.00 02/11/22 17:00 86 26 102/58 (73) 92 NIV Bilevel 40.00 02/11/22 16:00 94 NIV Bilevel 40 02/11/22 16:00 81 23 90/57 (68) 91 NIV Bilevel 40.00 02/11/22 15:02 95 Vapotherm 15.00 45 02/11/22 15:00 80 20 94/53 (67) 96 NIV Bilevel 40.00 02/11/22 14:00 101 25 122/68 (86) 94 NIV Bilevel 40.00 02/11/22 13:36 36.8 82 93 02/11/22 13:00 82 02/11/22 13:00 86 18 92/53 (66) 91 NIV Bilevel 40.00 02/11/22 12:00 78 25 92/53 (66) 93 NIV Bilevel 40.00 02/11/22 12:00 94 NIV Bilevel 40 02/11/22 11:47 36.8 02/11/22 11:16 96 Vapotherm 20.00 45 02/11/22 11:00 85 22 105/67 (80) 98 NIV Bilevel 40.00 02/11/22 10:00 89 23 112/85 (94) 97 NIV Bilevel 40.00 I & O 02/12/22 07:00 Intake Total 1450 ml Output Total 3275 ml Balance -1825 ml Height & Weight Height: '" Weight: lbs. oz. kg; 23.66 BMI Method:Stated General Appearance: No Apparent Distress, Chronically ill HEENT: PERRL/EOMI, Pharynx Normal Neck: Normal Inspection, Supple Respiratory: No Respiratory Distress, Decreased Breath Sounds Cardiovascular: Regular Rate, Rhythm, No Murmur Capillary Refill: Less Than 3 Seconds Gastrointestinal: normal bowel sounds, non tender, soft Extremity: Normal Inspection, No Pedal Edema Neurologic/Psychiatric: Alert, Normal Mood/Affect Skin: Normal Color, Warm/Dry Results Lab Laboratory Tests 02/11/22 04:55 02/12/22 03:52 02/12/22 04:34 Assessment/Plan Assessment/Plan See free text. Critical Care: Critically Ill Patient MIKE HALE MD Feb 12, 2022 09:03
[2022-02-12] MEDS: DOCUSATE SODIUM 100 MG (COLACE) CAP PO SCH ×3 (09:13→20:30)
[2022-02-12] MEDS: SENNOSIDES 8.6 MG (SENOKOT) TAB PO SCH ×2 (09:13→20:20)
--- NOTE | 2022-02-12 09:47 | Progress Note - Hospitalist ---
Subjective HPI/CC On Admission Date Seen by Provider: Feb 12, 2022 Time Seen by Provider: 07:30 Bria Crowder is a 76 year old male with PMH HTN, HLD, CAD s/p CABG and coronary stenting, HFrEF, COPD on home oxygen 2.5 L, who presented with chest tightness. He denies radiation to the shoulder, arm, neck, and jaw. He reports palpitati ons. He was also very short of breath especially with exertion. He was diaphoretic. He denies nausea and vomiting. He has lower extremity swelling which he says has been there for years. He smokes cigars daily. He does not drink alcohol. Subjective/Events-last exam Patient reports that he is feeling better with less shortness of breath. He reports some ongoing cough that is nonproductive. Biggest complaint is for the last 2 days he has had left-sided pleuritic type chest pain. He denies chills or fever. Objective Exam Vital Signs Vital Signs Date Time Temp Pulse Resp B/P (MAP) Pulse Ox O2 Delivery O2 Flow Rate FiO2 02/12/22 09:04 55 Vapotherm 25.00 02/12/22 09:00 130 13 116/91 (99) 02/12/22 07:51 37.1 02/12/22 04:00 60 Capillary Refill : Less Than 3 Seconds General Appearance: No Apparent Distress, Chronically ill Respiratory: No Accessory Muscle Use, No Respiratory Distress, Other (Scattered rhonchi with expiratory wheezing throughout no rubs appreciated.) Cardiovascular: No Murmur, Irregularly Irregular, Other (Distant heart tones increased AP diameter of the chest) Gastrointestinal: Normal Bowel Sounds, No Organomegaly, No Pulsatile Mass, Non Tender, Soft Extremity: Non Tender, No Pedal Edema Results/Procedures Lab Laboratory Tests 02/12/22 03:52 02/12/22 04:34 Patient resulted labs reviewed. Imaging: Reviewed Imaging Report Assessment/Plan Assessment and Plan Assess & Plan/Chief Complaint Assess & Plan/Chief Complaint Acute on chronic HFrEF secondary to atrial flutter with rapid ventricular response. Heart rate still elevated but there has been symptomatic improvement per the patient. Further rate control measures deferred to cardiology. Acute on chronic respiratory failure with hypoxia Borderline EF 40-45% Worsening hypoxia, now on Vapotherm CT Chest with pulmonary edema CXR today with worsening pulmonary edema Increase Lasix Atrial flutter with rapid ventricular response New onset Cardiology following Cardizem Eliquis NSTEMI CAD s/p CABG Troponin elevated, presumed type II IA due to RVR Continue ASA and Plavix Hematuria Possibly traumatic Urology following Begin Flomax when BP improves COPD Chronic respiratory failure with hypoxia Supplemental oxygen as needed, 2.5 L baseline requirement Hypomagnesemia Monitor and replace as needed HTN HLD DVT prophylaxis: already receiving therapeutic anticoagulation DESIRAE, resolved Critical Care Critically Ill Patient Clinical Quality Measures AMI/AHF: ASA po Prior to arrival: Yes MANDI BUSCH MD Feb 12, 2022 09:47
--- NOTE | 2022-02-12 10:51 | Progress Note - Urology ---
Progress Note-Urology Progress Notes/Assess & Plan Progress/Assessment & Plan TOLERATES FLOMAX WELL. TOV MONDAY Final Diagnosis RETENTION ENOC MULTANI MD Feb 12, 2022 10:51
[2022-02-12] MEDS: RT--FLUTICASONE/SALMETEROL 113-14 (AIRDUO RespiCLICK) IH SCH ×2 (11:30→21:31)
[2022-02-12] MEDS: HYDROcodone/APAP 5 MG/325 MG (LORTAB) TAB PO PRN ×2 (12:04→18:12)
[2022-02-12] MEDS: NS IV 1000 ML 1,000 ML IV SCH (15:09)
[2022-02-12] MEDS: NOREPINEPHRINE 8 MG/250 ML 250 ML IV SCH (15:10)
--- NOTE | 2022-02-12 16:02 | Cardiology Progress Note ---
Progress Note-Cardiology Events since last exam Date Seen by Provider: Feb 12, 2022 Time Seen by Provider: 15:55 Events since last exam We are following him due to atrial flutter and elevated troponin level. He feels as though his breathing continues to improve. His peripheral edema resolved. He denies chest discomfort, palpitations, or syncope. Certain portions of this document may have been dictated utilizing voice recognition technology. Inherent to this technology, typographical and grammatical errors may exist. As much as I am diligent to identify and correct these mistakes, some errors may remain in the document. Vitals Last set of Vitals Signs Vital Signs 02/12/22 02/12/22 02/12/22 02/12/22 02/12/22 11:59 12:00 14:00 14:59 15:10 Temp 37.0 Pulse 89 Resp 18 B/P (MAP) 97/60 Pulse Ox 50 O2 Delivery Vapotherm O2 Flow Rate 20.00 FiO2 60 Labs Labs Laboratory Tests 02/12/22 03:52 02/12/22 04:34 Exam Vital Signs Vital Signs Date Time Temp Pulse Resp B/P (MAP) Pulse Ox O2 Delivery O2 Flow Rate FiO2 02/12/22 15:10 89 97/60 02/12/22 14:59 50 Vapotherm 20.00 02/12/22 14:00 18 02/12/22 12:00 60 02/12/22 11:59 37.0 Physical Exam General: Alert. No acute distress. Eye: No xanthelasma. HENT: Normocephalic. Neck: Jugular venous pressure does not appear elevated. Respiratory: Lungs have diffuse wheezes bilaterally. Respirations are non- labored. Breath sounds are equal. Symmetrical chest wall expansion. Cardiovascular: Normal rate. Irregular rhythm. Distant S1/S2. No murmur. No gallop. No edema. Gastrointestinal: Soft. Normal bowel sounds. Skin: Warm. Dry. Neurologic: Alert and oriented to person, place, time. Cranial nerves 3-11 grossly intact. Psychiatric: Cooperative. Appropriate mood & affect. Labs Laboratory Tests Test 02/12/22 03:52 02/12/22 04:34 Range/Units White Blood Count 10.1 4.3-11.0 10^3/uL Red Blood Count 4.45 4.30-5.52 10^6/uL Hemoglobin 13.8 13.3-17.7 g/dL Hematocrit 41 40-54 % Mean Corpuscular Volume 91 80-99 fL Mean Corpuscular Hemoglobin 31 25-34 pg Mean Corpuscular Hemoglobin Concent 34 32-36 g/dL Red Cell Distribution Width 14.9 H 10.0-14.5 % Platelet Count 181 130-400 10^3/uL Mean Platelet Volume 11.2 9.0-12.2 fL Immature Granulocyte % (Auto) 0 % Neutrophils (%) (Auto) 86 H 42-75 % Lymphocytes (%) (Auto) 5 L 12-44 % Monocytes (%) (Auto) 9 0-12 % Eosinophils (%) (Auto) 0 0-10 % Basophils (%) (Auto) 0 0-10 % Neutrophils # (Auto) 8.6 H 1.8-7.8 10^3/uL Lymphocytes # (Auto) 0.5 L 1.0-4.0 10^3/uL Monocytes # (Auto) 0.9 0.0-1.0 10^3/uL Eosinophils # (Auto) 0.0 0.0-0.3 10^3/uL Basophils # (Auto) 0.0 0.0-0.1 10^3/uL Immature Granulocyte # (Auto) 0.0 0.0-0.1 10^3/uL Magnesium Level 1.8 1.6-2.4 MG/DL Sodium Level 136 135-145 MMOL/L Potassium Level 4.0 3.6-5.0 MMOL/L Chloride Level 96 L 98-107 MMOL/L Carbon Dioxide Level 24 21-32 MMOL/L Anion Gap 16 H 5-14 MMOL/L Blood Urea Nitrogen 31 H 7-18 MG/DL Creatinine 1.20 0.60-1.30 MG/DL Estimat Glomerular Filtration Rate 63 BUN/Creatinine Ratio 26 Glucose Level 89 70-105 MG/DL Calcium Level 9.1 8.5-10.1 MG/DL Diagnosis/Problems Diagnosis/Problems (1) Elevated troponin Status: Acute Assessment & Plan: We suspect he may have had a type II non-ST elevation myocardial infarction due to supply/demand mismatch due to atrial flutter with tachycardia that has now improved. He is not having any symptoms consistent with angina. Continue aspirin. He was on atenolol at home but has been getting diltiazem here in the hospital. I will change this over to metoprolol succinate. He was taking simvastatin at home which we do not have on formulary. I will start him on rosuvastatin. At some point, we may want to consider either a cardiac catheterization or an ischemic evaluation with a stress test. We may be able to consider this electively as an outpatient following discharge depending on his clinical course. (2) Typical atrial flutter Assessment & Plan: His heart rates improved with diltiazem. He had been on apixaban for stroke prophylaxis but then developed hematuria. Given that he has a low ejection fraction and was tolerating beta-romaine at home, I will change the diltiazem over to metoprolol succinate. We will resume oral anticoagulation when the hematuria improves or resolves. (3) Acute on chronic HFrEF (heart failure with reduced ejection fraction) Status: Acute Assessment & Plan: His peripheral edema has resolved and his breathing is better. I will change his diuretic back over to his home dose of oral furosemide. He may be getting somewhat volume depleted on the intravenous furosemide. (4) Coronary artery disease without angina pectoris Assessment & Plan: He has not been having any angina despite the abnormal trop onin level. Continue aspirin, beta-romaine and statin medication. He was on long-acting nitrates at home but since he is not having any angina, I will hold off on restarting this. (5) Pulmonary hypertension Assessment & Plan: Most likely predominantly due to his underlying lung disease with ongoing smoking and also some component of chronic heart failure. This will need to be followed longitudinally. He may benefit from home oxygen if he is not already using this. (6) Cardiomyopathy Assessment & Plan: As above, I will change his diltiazem over to metoprolol succinate. His ejection fraction is above 40% so the is not necessarily an indication for DEONTE inhibitor, ARB or spironolactone. (7) Mixed hyperlipidemia Assessment & Plan: Continue statin medication. (8) Acute on chronic respiratory failure with hypoxia Status: Acute Assessment & Plan: Most likely multifactorial due to an exacerbation of his chronic obstructive pulmonary disease with superimposed heart failure. Fortunately, the heart failure seems improved. (9) Cigarette smoker Assessment & Plan: He needs to quit smoking. He was counseled in this regard. He told me he thinks he is done with cigarettes. DANYEL GUZMÁN JR, MD Feb 12, 2022 16:02
[2022-02-12] MEDS: ROSUVASTATIN 10 MG (CRESTOR) TABLET PO SCH (20:30)
[2022-02-13] MEDS: NS IV 1000 ML 1,000 ML IV SCH ×2 (02:19→11:00)
[2022-02-13 04:21] LABS: BASOPHILS % (AUTO) 0 % (0-10); EOSINOPHILS # (AUTO) 0.1 10^3/uL (0.0-0.3); EOSINOPHILS % (AUTO) 1 % (0-10); HEMATOCRIT 41 % (40-54); HEMOGLOBIN 13.9 g/dL (13.3-17.7); LYMPHOCYTES # (AUTO) 0.4 10^3/uL (1.0-4.0); LYMPHOCYTES % (AUTO) 5 % (12-44); MEAN CORPUSCULAR HEMOGLOBIN 31 pg (25-34); MEAN CORPUSCULAR HGB CONC 34 g/dL (32-36); MEAN CORPUSCULAR VOLUME 92 fL (80-99); MEAN PLATELET VOLUME 11.7 fL (9.0-12.2); MONOCYTES # (AUTO) 0.9 10^3/uL (0.0-1.0); MONOCYTES % (AUTO) 11 % (0-12); NEUTROPHILS # (AUTO) 6.9 10^3/uL (1.8-7.8); NEUTROPHILS % (AUTO) 83 % (42-75); PLATELET COUNT 204 10^3/uL (130-400); WHITE BLOOD COUNT 8.3 10^3/uL (4.3-11.0)
[2022-02-13 04:46] LABS: CALCIUM 9.1 MG/DL (8.5-10.1); CREATININE SERUM 1.19 MG/DL (0.60-1.30); POTASSIUM 4.5 MMOL/L (3.6-5.0)
[2022-02-13] MEDS: POTASSIUM CL 10MEQ/50ML IVPB 50 ML IV SCH (05:13)
[2022-02-13] MEDS: KCL 20 MEQ TAB (K-DUR) PO SCH (05:22)
[2022-02-13] MEDS: MAGNESIUM 1 GM/100 ML IVPB 100 ML IV SCH (05:22)
--- NOTE | 2022-02-13 08:18 | Tele-ICU Progress Note ---
Progress Note video rounds completed 76 y/o male admittjulianne elizabeth a flutter and RVR being followed by cardiology Also has hx of COPD on medical therapy and O2 therapy with BIPAP as needed [place] hx of CAD and is s/p CABG in the past. PE: comfortable in bed HR: 99 a flutter BP: 94/62 O2 sat: 93% Focused Exam Sepsis Stage: Ruled Out Height, Weight, BMI Height: '" Weight: lbs. oz. kg; 23.66 BMI Method:Stated Labs Laboratory Tests 02/13/22 03:46 Results Results/Procedures Lab Laboratory Tests 02/12/22 03:52 02/12/22 04:34 02/13/22 03:46 Results Results/Procedures Labs Laboratory Tests 02/12/22 03:52 02/12/22 04:34 02/13/22 03:46 Patient resulted labs reviewed. Imaging: Reviewed Imaging Report Results Labs Labs Laboratory Tests 02/13/22 03:46: White Blood Count 8.3, Red Blood Count 4.46, Hemoglobin 13.9, Hematocrit 41, Mean Corpuscular Volume 92, Mean Corpuscular Hemoglobin 31, Mean Corpuscular Hemoglobin Concent 34, Red Cell Distribution Width 14.6H, Platelet Count 204, Mean Platelet Volume 11.7, Immature Granulocyte % (Auto) 0, Neutrophils (%) (Auto) 83H, Lymphocytes (%) (Auto) 5L, Monocytes (%) (Auto) 11, Eosinophils (%) (Auto) 1, Basophils (%) (Auto) 0, Neutrophils # (Auto) 6.9, Lymphocytes # (Auto) 0.4L, Monocytes # (Auto) 0.9, Eosinophils # (Auto) 0.1, Basophils # (Auto) 0.0, Immature Granulocyte # (Auto) 0.0, Sodium Level 134L, Potassium Level 4.5, Chloride Level 95L, Carbon Dioxide Level 25, Anion Gap 14, Blood Urea Nitrogen 32H, Creatinine 1.19, Estimat Glomerular Filtration Rate 64, BUN/Creatinine Ratio 27, Glucose Level 95, Calcium Level 9.1, Magnesium Level 1.7 Microbiology 02/08/22 MRSA Screen - Final, Complete MRSA not isolated Impression & Plan Impression & Plan a flutter with RVR resolved but still in a flutter, cardiology following COPD on maximal medical therapy situation improved, no hypoxemia PLAN: continue current plans Time spent 20 minutes in evaluation Diagnosis a flutter with RVR, HR now controlled Admission Status: Inpatient Order (span 2 midnights) Reason for Inpatient Admission: a flutter rvr Orders CPM SARAH DUKE MD Feb 13, 2022 08:18
[2022-02-13] MEDS: meTOproloL SUCCINATE 50 MG (TOPROL XL) TAB PO SCH (08:55)
[2022-02-13] MEDS: RT-ALBUTEROL/IPRATROPIUM 3 ML (DUONEB) VIAL INH SCH ×3 (08:55→21:17)
[2022-02-13] MEDS: FUROSEMIDE 40 MG (LASIX) TAB PO SCH (08:55)
[2022-02-13] MEDS: PANTOPRAZOLE 40 MG (PROTONIX) TAB PO SCH (08:55)
[2022-02-13] MEDS: RT--FLUTICASONE/SALMETEROL 113-14 (AIRDUO RespiCLICK) IH SCH ×2 (08:55→21:18)
[2022-02-13] MEDS: ASPIRIN 81 MG CHEW (CHILDREN'S ASA) PO SCH (08:56)
[2022-02-13] MEDS: DOCUSATE SODIUM 100 MG (COLACE) CAP PO SCH ×2 (08:57→20:25)
[2022-02-13] MEDS: SENNOSIDES 8.6 MG (SENOKOT) TAB PO SCH ×2 (08:57→20:25)
--- NOTE | 2022-02-13 09:47 | Progress Note - Hospitalist ---
Subjective HPI/CC On Admission Date Seen by Provider: Feb 13, 2022 Time Seen by Provider: 08:45 Bria Crowder is a 76 year old male with PMH HTN, HLD, CAD s/p CABG and coronary stenting, HFrEF, COPD on home oxygen 2.5 L, who presented with chest tightness. He denies radiation to the shoulder, arm, neck, and jaw. He reports palpitati ons. He was also very short of breath especially with exertion. He was diaphoretic. He denies nausea and vomiting. He has lower extremity swelling which he says has been there for years. He smokes cigars daily. He does not drink alcohol. Subjective/Events-last exam Patient voices no chest pain this morning less short of breath at rest. Minimal reserve for any physical activity persists. Objective Exam Vital Signs Vital Signs Date Time Temp Pulse Resp B/P (MAP) Pulse Ox O2 Delivery O2 Flow Rate FiO2 02/13/22 09:00 120 22 97/65 (76) 93 NIV Bilevel 40.00 02/13/22 08:55 50 02/13/22 07:23 36.7 Capillary Refill : Less Than 3 Seconds General Appearance: No Apparent Distress, Chronically ill Respiratory: No Accessory Muscle Use, No Respiratory Distress, Other (Mild expiratory wheeze throughout with scattered rhonchi) Cardiovascular: No Murmur, Irregularly Irregular Gastrointestinal: Normal Bowel Sounds, No Organomegaly, No Pulsatile Mass, Non Tender, Soft Results/Procedures Lab Laboratory Tests 02/13/22 03:46 Patient resulted labs reviewed. Imaging: Reviewed Imaging Report Assessment/Plan Assessment and Plan Assess & Plan/Chief Complaint Assess & Plan/Chief Complaint 02/12/2022 Acute on chronic HFrEF secondary to atrial flutter with rapid ventricular response. Heart rate still elevated but there has been symptomatic improvement per the patient. Further rate control measures deferred to cardiology. 02/13/2022: patient was switched from diltiazem to metoprolol and rate control is been little improved at rest around 100 bpm with any activity goes up to the 120 range. Yesterday he was around 120 at rest. Heart failure appears to be compensated with likely underlying severe deconditioning due to likely severe COPD in addition to his chronic heart failure. Still requiring high flow oxygen long-term prognosis poor. Continue current medication including bronchodilator therapy and Initiate prednisone 40 mg daily. patient feeling better with the switch to beta-romaine therapy with better heart rate control such that the benefits of beta-romaine therapy I believe outweigh theoretical COPD exacerbation risk. Acute on chronic respiratory failure with hypoxia Borderline EF 40-45% Worsening hypoxia, now on Vapotherm CT Chest with pulmonary edema CXR today with worsening pulmonary edema Increase Lasix Atrial flutter with rapid ventricular response New onset Cardiology following Cardizem Eliquis NSTEMI CAD s/p CABG Troponin elevated, presumed type II IN due to RVR Continue ASA and Plavix Hematuria Possibly traumatic Urology following Begin Flomax when BP improves COPD Chronic respiratory failure with hypoxia Supplemental oxygen as needed, 2.5 L baseline requirement Hypomagnesemia Monitor and replace as needed HTN HLD DVT prophylaxis: already receiving therapeutic anticoagulation DESIRAE, resolved Critical Care Critically Ill Patient Clinical Quality Measures AMI/AHF: ASA po Prior to arrival: Yes MANDI BUSCH MD Feb 13, 2022 09:47
[2022-02-13] MEDS ORDERED: predniSONE 20 MG TAB PO ONE (10:00)
--- NOTE | 2022-02-13 10:09 | Progress Note - Urology ---
Progress Note-Urology Progress Notes/Assess & Plan Progress/Assessment & Plan URINE YELLOW. PROBABLY CYSTOSCOPY SUSAN AT BED SIDE UNDER LOCAL TO COMPLETE W/U Final Diagnosis HEMATURIA (RESOLVED) ENOC MULTANI MD Feb 13, 2022 10:09
[2022-02-13] MEDS ORDERED: APIXABAN 5 MG (ELIQUIS) TABLET PO ONE (10:30)
--- NOTE | 2022-02-13 10:37 | Cardiology Progress Note ---
Progress Note-Cardiology Events since last exam Date Seen by Provider: Feb 13, 2022 Time Seen by Provider: 10:32 Events since last exam We are following him due to atrial flutter. He denies dyspnea at rest, chest discomfort, palpitations, syncope, or ankle edema. Certain portions of this document may have been dictated utilizing voice recognition technology. Inherent to this technology, typographical and g rammatical errors may exist. As much as I am diligent to identify and correct these mistakes, some errors may remain in the document. Vitals Last set of Vitals Signs Vital Signs 02/13/22 02/13/22 02/13/22 07:23 08:55 10:00 Temp 36.7 Pulse 105 Resp 18 B/P (MAP) 94/54 (67) Pulse Ox 95 O2 Delivery NIV Bilevel O2 Flow Rate 40.00 FiO2 50 Labs Labs Laboratory Tests 02/13/22 03:46 Exam Vital Signs Vital Signs Date Time Temp Pulse Resp B/P (MAP) Pulse Ox O2 Delivery O2 Flow Rate FiO2 02/13/22 10:00 105 18 94/54 (67) 95 NIV Bilevel 40.00 02/13/22 08:55 50 02/13/22 07:23 36.7 Physical Exam General: Alert. No acute distress. He is wearing oxygen by nasal cannula. Eye: No xanthelasma. HENT: Normocephalic. Neck: Jugular venous pressure does not appear elevated. Respiratory: Lungs have diffuse wheezes bilaterally. Respirations are non- labored. Breath sounds are equal. Symmetrical chest wall expansion. Cardiovascular: Normal rate. Irregular rhythm. Distant S1/S2. No murmur. No gallop. No edema. Gastrointestinal: Soft. Normal bowel sounds. Skin: Warm. Dry. Neurologic: Alert and oriented to person, place, time. Cranial nerves 3-11 grossly intact. Psychiatric: Cooperative. Appropriate mood & affect. Labs Laboratory Tests Test 02/13/22 03:46 Range/Units White Blood Count 8.3 4.3-11.0 10^3/uL Red Blood Count 4.46 4.30-5.52 10^6/uL Hemoglobin 13.9 13.3-17.7 g/dL Hematocrit 41 40-54 % Mean Corpuscular Volume 92 80-99 fL Mean Corpuscular Hemoglobin 31 25-34 pg Mean Corpuscular Hemoglobin Concent 34 32-36 g/dL Red Cell Distribution Width 14.6 H 10.0-14.5 % Platelet Count 204 130-400 10^3/uL Mean Platelet Volume 11.7 9.0-12.2 fL Immature Granulocyte % (Auto) 0 % Neutrophils (%) (Auto) 83 H 42-75 % Lymphocytes (%) (Auto) 5 L 12-44 % Monocytes (%) (Auto) 11 0-12 % Eosinophils (%) (Auto) 1 0-10 % Basophils (%) (Auto) 0 0-10 % Neutrophils # (Auto) 6.9 1.8-7.8 10^3/uL Lymphocytes # (Auto) 0.4 L 1.0-4.0 10^3/uL Monocytes # (Auto) 0.9 0.0-1.0 10^3/uL Eosinophils # (Auto) 0.1 0.0-0.3 10^3/uL Basophils # (Auto) 0.0 0.0-0.1 10^3/uL Immature Granulocyte # (Auto) 0.0 0.0-0.1 10^3/uL Sodium Level 134 L 135-145 MMOL/L Potassium Level 4.5 3.6-5.0 MMOL/L Chloride Level 95 L 98-107 MMOL/L Carbon Dioxide Level 25 21-32 MMOL/L Anion Gap 14 5-14 MMOL/L Blood Urea Nitrogen 32 H 7-18 MG/DL Creatinine 1.19 0.60-1.30 MG/DL Estimat Glomerular Filtration Rate 64 BUN/Creatinine Ratio 27 Glucose Level 95 70-105 MG/DL Calcium Level 9.1 8.5-10.1 MG/DL Magnesium Level 1.7 1.6-2.4 MG/DL Diagnosis/Problems Diagnosis/Problems (1) Elevated troponin Status: Acute Assessment & Plan: We suspect he may have had a type II non-ST elevation myocardial infarction due to supply/demand mismatch due to atrial flutter with tachycardia that has now improved. He is not having any symptoms consistent with angina. Continue aspirin. He was on atenolol at home but had been getting diltiazem here in the hospital. I changed to diltiazem and over to metoprolol succinate in light of his left ventricular systolic dysfunction. He was taking simvastatin at home which we do not have on formulary. I started him on rosu vastatin. At some point, we may want to consider either a cardiac catheterization or an ischemic evaluation with a stress test. We may be able to consider this electively as an outpatient following discharge depending on his clinical course. (2) Typical atrial flutter Assessment & Plan: His heart rates improved with diltiazem. He had been on apixaban for stroke prophylaxis but then developed hematuria. The hematuria has improved. I will restart the apixaban. If he develops recurrent hematuria, this will need to be stopped. He is tentatively scheduled for a cystoscopy on 02/15. Given that he has a low ejection fraction and was tolerating beta- romaine at home, I changed the diltiazem over to metoprolol succinate. (3) Acute on chronic HFrEF (heart failure with reduced ejection fraction) Status: Acute Assessment & Plan: His peripheral edema has resolved and his breathing is better. I changed his diuretic back over to his home dose of oral furosemide. I have ordered a follow-up chest x-ray for tomorrow morning. (4) Coronary artery disease without angina pectoris Assessment & Plan: He has not been having any angina despite the abnormal troponin level. Continue aspirin, beta-romaine and statin medication. He was on long-acting nitrates at home but since he is not having any angina, I will hold off on restarting this. As above, at some point we may want to consider a cardiac catheterization for an ischemic evaluation with a stress test. I will leave this up to the discretion of his regular blueprint duplicator who will be seeing him tomorrow. (5) Pulmonary hypertension Assessment & Plan: Most likely predominantly due to his underlying lung disease with ongoing smoking and also some component of chronic heart failure. This will need to be followed longitudinally. He may benefit from home oxygen if he is not already using this. (6) Cardiomyopathy Assessment & Plan: As above, I changed his diltiazem over to metoprolol succina te. His ejection fraction is above 40% so this not necessarily an indication for DEONTE inhibitor, ARB or spironolactone. (7) Mixed hyperlipidemia Assessment & Plan: Continue statin medication. (8) Acute on chronic respiratory failure with hypoxia Status: Acute Assessment & Plan: Most likely multifactorial due to an exacerbation of his chronic obstructive pulmonary disease with superimposed heart failure. Fortunately, the heart failure seems improved. (9) Cigarette smoker Assessment & Plan: He needs to quit smoking. He was counseled in this regard. He told me he thinks he is done with cigarettes. DANYEL GUZMÁN JR, MD Feb 13, 2022 10:37
[2022-02-13] MEDS: NOREPINEPHRINE 8 MG/250 ML 250 ML IV SCH (11:12)
[2022-02-13] MEDS ORDERED: meTOprolol TARTRATE 25 MG (LOPRESSOR) TABLET PO ONE (18:30)
[2022-02-13] MEDS ORDERED: DIGOXIN 0.25 MG/ML (LANOXIN) 2 ML AMP IV ONE (18:30)
[2022-02-13] MEDS ORDERED: meTOprolol TARTRATE 25 MG (LOPRESSOR) TABLET ONE (18:35)
[2022-02-13] MEDS: APIXABAN 5 MG (ELIQUIS) TABLET PO SCH (20:43)
[2022-02-13] MEDS: ROSUVASTATIN 10 MG (CRESTOR) TABLET PO SCH (20:43)
[2022-02-13] MEDS: MELATONIN 3 MG TABLET PO PRN (23:01)
[2022-02-14] MEDS: RT-ALBUTEROL/IPRATROPIUM 3 ML (DUONEB) VIAL INH SCH ×4 (02:09→20:59)
[2022-02-14] MEDS: NS IV 1000 ML 1,000 ML IV SCH ×3 (02:16→17:56)
[2022-02-14] MEDS: HYDROcodone/APAP 5 MG/325 MG (LORTAB) TAB PO PRN (04:51)
[2022-02-14 05:12] LABS: BASOPHILS % (AUTO) 0 % (0-10); EOSINOPHILS % (AUTO) 0 % (0-10); HEMATOCRIT 43 % (40-54); HEMOGLOBIN 14.7 g/dL (13.3-17.7); LYMPHOCYTES # (AUTO) 0.3 10^3/uL (1.0-4.0); LYMPHOCYTES % (AUTO) 3 % (12-44); MEAN CORPUSCULAR HEMOGLOBIN 31 pg (25-34); MEAN CORPUSCULAR HGB CONC 34 g/dL (32-36); MEAN CORPUSCULAR VOLUME 90 fL (80-99); MEAN PLATELET VOLUME 10.9 fL (9.0-12.2); MONOCYTES # (AUTO) 0.8 10^3/uL (0.0-1.0); MONOCYTES % (AUTO) 9 % (0-12); NEUTROPHILS % (AUTO) 87 % (42-75); PLATELET COUNT 218 10^3/uL (130-400); WHITE BLOOD COUNT 9.2 10^3/uL (4.3-11.0)
[2022-02-14 05:36] LABS: CALCIUM 9.7 MG/DL (8.5-10.1); CREATININE SERUM 1.22 MG/DL (0.60-1.30); POTASSIUM 4.2 MMOL/L (3.6-5.0)
[2022-02-14] MEDS: MAGNESIUM 1 GM/100 ML IVPB 100 ML IV SCH ×3 (05:42→06:13)
[2022-02-14] MEDS: POTASSIUM CL 10MEQ/50ML IVPB 50 ML IV SCH (05:42)
[2022-02-14] MEDS: KCL 20 MEQ TAB (K-DUR) PO SCH (05:42)
[2022-02-14] MEDS ORDERED: MAGNESIUM 1 GM/100 ML IVPB 200 ML IV ONE (05:50)
[2022-02-14] MEDS ORDERED: predniSONE 20 MG TAB PO SCH (07:00)
[2022-02-14] MEDS: RT--FLUTICASONE/SALMETEROL 113-14 (AIRDUO RespiCLICK) IH SCH ×2 (07:13→20:59)
--- NOTE | 2022-02-14 07:39 | Tele-ICU Progress Note ---
Subjective Date Seen by a Provider: Feb 14, 2022 Time Seen by a Provider: 07:31 Subjective/Events-last exam This virtual visit was conducted using real time audio/video. Thank you for asking us to see this patient for respiratory insufficiency due to COPD on home O2 2.5 LPM. Admitted w a fib /RVR. At present on high flow oxygen @ 40 lpm with FiO2 25% with SpO2 97% Remains on Airduo, PRN albuterol, prednisone 40, will taper to 30 x 2 day, 20 x 2 days A fib, on digoxin, V rate in 90's and is on digoxin and metoprolol for rate control, Also on Eliquis Yesterday had to have additional doses of beta romaine Lab: CBC looks ok Sepsis Event Evaluation Height, Weight, BMI Height: '" Weight: lbs. oz. kg; 23.41 BMI Method:Stated Exam Exam Patient acknowledged, consented, and participated in this virtual visit which was conducted using real time audio/video Vital Signs Date Time Temp Pulse Resp B/P (MAP) Pulse Ox O2 Delivery O2 Flow Rate FiO2 02/14/22 07:13 94 Vapotherm 25.00 40 02/14/22 06:00 93 18 103/67 (79) 97 Vapotherm 25.00 40.00 02/14/22 05:00 96 21 121/75 (90) 96 Vapotherm 25.00 40.00 02/14/22 04:05 95 Vapotherm 25.00 40 02/14/22 04:00 36.3 02/14/22 04:00 101 19 107/74 (85) 98 Vapotherm 25.00 40.00 02/14/22 03:00 106 19 110/67 (81) 97 Vapotherm 25.00 40.00 02/14/22 02:09 98 Vapotherm 25.00 45 02/14/22 02:00 104 18 113/77 (89) 98 Vapotherm 25.00 40.00 02/14/22 01:00 98 02/14/22 01:00 98 16 109/76 (87) 99 Vapotherm 25.00 40.00 02/14/22 00:00 130 18 105/72 (83) 99 Vapotherm 25.00 40.00 02/14/22 00:00 95 Vapotherm 25.00 45 02/14/22 00:00 Vapotherm 25.00 40.00 02/13/22 23:57 36.5 02/13/22 23:00 121 15 100/88 (92) 97 Vapotherm 25.00 45.00 02/13/22 22:00 112 18 113/68 (83) 96 Vapotherm 25.00 45.00 02/13/22 21:21 Vapotherm 02/13/22 21:18 98 Vapotherm 25.00 45 02/13/22 21:06 36.6 02/13/22 21:00 92 19 111/93 (99) 98 Vapotherm 25.00 45.00 02/13/22 20:49 95 Vapotherm 25.00 45 02/13/22 20:00 133 22 130/90 (103) 96 Vapotherm 25.00 45.00 02/13/22 19:25 36.4 02/13/22 19:00 124 02/13/22 19:00 124 19 101/84 (90) 98 Vapotherm 25.00 45.00 02/13/22 18:00 158 22 134/81 (98) 95 NIV Bilevel 40.00 02/13/22 17:00 149 21 112/72 (85) 95 NIV Bilevel 40.00 02/13/22 16:00 130 20 104/72 (83) 96 NIV Bilevel 40.00 02/13/22 16:00 94 Vapotherm 25.00 45 02/13/22 15:18 94 Vapotherm 25.00 45 02/13/22 15:17 36.3 02/13/22 15:00 133 16 112/79 (90) 97 NIV Bilevel 40.00 02/13/22 14:00 129 17 105/76 (86) 94 NIV Bilevel 40.00 02/13/22 13:00 118 17 116/77 (90) 92 NIV Bilevel 40.00 02/13/22 12:54 125 02/13/22 12:00 93 Vapotherm 25.00 45 02/13/22 12:00 115 13 100/73 (82) 92 NIV Bilevel 40.00 02/13/22 11:26 36.6 02/13/22 11:12 118 116/77 02/13/22 11:00 112 20 103/67 (79) 92 NIV Bilevel 40.00 02/13/22 10:00 105 18 94/54 (67) 95 NIV Bilevel 40.00 02/13/22 09:00 120 22 97/65 (76) 93 NIV Bilevel 40.00 02/13/22 08:59 Vapotherm 02/13/22 08:55 94 Vapotherm 25.00 50 02/13/22 08:00 95 Vapotherm 25.00 50 02/13/22 08:00 93 22 94/62 (73) 94 NIV Bilevel 40.00 I & O 02/14/22 07:00 Intake Total 2135 ml Output Total 3100 ml Balance -965 ml Height & Weight Height: '" Weight: lbs. oz. kg; 23.41 BMI Method:Stated General Appearance: No Apparent Distress, Chronically ill HEENT: PERRL/EOMI, Pharynx Normal Neck: Normal Inspection, Supple Respiratory: No Accessory Muscle Use, No Respiratory Distress, Decreased Breath Sounds, Wheezing, Other (Mild expiratory wheeze throughout with scattered rhonchi) Cardiovascular: No Murmur, Irregularly Irregular, Tachycardia Capillary Refill: Less Than 3 Seconds Gastrointestinal: normal bowel sounds, non tender, soft Extremity: Non Tender, No Pedal Edema Neurologic/Psychiatric: Alert, Normal Mood/Affect Skin: Normal Color, Warm/Dry Results Lab Laboratory Tests 02/13/22 03:46 02/14/22 04:45 Assessment/Plan Assessment/Plan COPD, will taper prednisone, would do 6 min walk before discharge a fib, under control, continue beta romaine, dig, might go to [facility] Hematuria cystoscopy tomorrow per urology note, no further hematuria, back on [facility] Critical Care: Critically Ill Patient Time spent with patient (mins): 20 SARAH CARRANZA MD Feb 14, 2022 07:39
[2022-02-14] MEDS: APIXABAN 5 MG (ELIQUIS) TABLET PO SCH ×2 (08:05→20:52)
[2022-02-14] MEDS: DIGOXIN 0.125 MG (LANOXIN) TAB PO SCH (08:05)
[2022-02-14] MEDS: predniSONE 10 MG TAB PO SCH (08:05)
[2022-02-14] MEDS: FUROSEMIDE 40 MG (LASIX) TAB PO SCH (08:05)
[2022-02-14] MEDS: ASPIRIN 81 MG CHEW (CHILDREN'S ASA) PO SCH (08:05)
[2022-02-14] MEDS: meTOproloL SUCCINATE 50 MG (TOPROL XL) TAB PO SCH (08:05)
[2022-02-14] MEDS: PANTOPRAZOLE 40 MG (PROTONIX) TAB PO SCH (08:05)
[2022-02-14] MEDS: hydrOXYzine (ATARAX) 10 MG TAB PO PRN ×2 (08:11→23:00)
--- NOTE | 2022-02-14 09:03 | Diagnostic Imaging Report ---
CHEST 1 VIEW, AP/PA ONLY Indication: Shortness of breath. Comparison: 02/11/2022 Findings: Right greater than left basilar consolidations have not changed. No pneumothorax. No appreciable pleural effusion. Stable enlargement of cardiac silhouette with changes of CABG. Impression: 1. No change in bibasilar consolidations. Dictated by: Dictated on workstation # [id number]
--- NOTE | 2022-02-14 09:11 | Progress Note - Cardiology ---
Cardiology SOAP Progress Note Subjective: Sitting up in bed Denies any c/o CP or palpitations Reports occ cough - non-productive Objective: I&O/Vital Signs 02/14/22 02/14/22 02/14/22 02/14/22 20:00 20:00 21:00 21:00 Pulse 104 122 Resp 14 21 B/P (MAP) 108/69 (82) 124/79 (94) Pulse Ox 94 94 95 93 O2 Delivery Vapotherm Vapotherm Vapotherm Vapotherm O2 Flow Rate 25.00 20.00 20.00 25.00 40.00 40.00 FiO2 40 40 02/14/22 02/14/22 02/14/22 02/14/22 21:01 22:00 23:00 23:53 Temp 36.3 Pulse 111 96 Resp 24 17 B/P (MAP) 101/60 (74) 97/68 (78) Pulse Ox 95 91 94 O2 Delivery Vapotherm Vapotherm Vapotherm O2 Flow Rate 20.00 25.00 25.00 40.00 40.00 FiO2 40 02/14/22 02/15/22 02/15/22 02/15/22 23:59 00:00 01:00 01:00 Pulse 104 101 101 Resp 13 16 B/P (MAP) 107/57 (74) 106/77 (87) Pulse Ox 93 86 92 O2 Delivery Vapotherm Vapotherm Vapotherm O2 Flow Rate 20.00 25.00 25.00 40.00 40.00 FiO2 40 02/15/22 02/15/22 02/15/22 02/15/22 02:00 03:00 03:03 04:00 Pulse 86 85 91 Resp 14 15 14 B/P (MAP) 93/56 (68) 94/58 (70) 97/63 (74) Pulse Ox 95 94 93 92 O2 Delivery Vapotherm Vapotherm Vapotherm Vapotherm O2 Flow Rate 25.00 25.00 20.00 25.00 40.00 40.00 40.00 FiO2 40 02/15/22 02/15/22 02/15/22 04:00 05:00 06:00 Pulse 98 97 Resp 15 14 B/P (MAP) 111/63 (79) 97/73 (81) Pulse Ox 94 92 92 O2 Delivery Vapotherm Vapotherm Vapotherm O2 Flow Rate 20.00 25.00 25.00 40.00 40.00 FiO2 40 02/15/22 00:00 Intake Total 1200 ml Output Total 1350 ml Balance -150 ml Constitutional: AAO x 3, well-developed, other (thin-appearing) Respiratory: No accessory muscle use, No respiratory distress; rhonchi (scattered), other (prolonged exp phase) Cardiovascular: irregularly irregular Gastrointestional: No tender; soft, audible bowel sounds Genital/Rectal: other (urinary catheter with hematuria) Extremities: no lower extremity edema bilateral Neurologic/Psychiatric: grossly intact (moves all extremities) Skin: No rash on exposed areas, No ulcerations on exposed areas Results/Procedures: Labs Laboratory Tests 02/15/22 00:00: 02/15/22 04:30: White Blood Count 9.9, Red Blood Count 5.32, Hemoglobin 16.4, Hematocrit 48, Mean Corpuscular Volume 90, Mean Corpuscular Hemoglobin 31, Mean Corpuscular Hemoglobin Concent 35, Red Cell Distribution Width 14.2, Platelet Count 167, Mean Platelet Volume 12.0, Immature Granulocyte % (Auto) 0, Neutrophils (%) (Auto) 87H, Lymphocytes (%) (Auto) 4L, Monocytes (%) (Auto) 9, Eosinophils (%) (Auto) 0, Basophils (%) (Auto) 0, Neutrophils # (Auto) 8.6H, Lymphocytes # (Auto) 0.4L, Monocytes # (Auto) 0.9, Eosinophils # (Auto) 0.0, Basophils # (Auto) 0.0, Immature Granulocyte # (Auto) 0.0 02/15/22 06:37: Magnesium Level 1.8 Microbiology 02/08/22 MRSA Screen - Final, Complete MRSA not isolated A/P: Assessment: Newly dx atrial flutter w/ RVR - on EKG of 02-08-22 at [facility] ED - rate controlled - on BB and Digoxin - OAC with Eliquis Type 2 [place] - RVR in presence of underlying CAD Acute renal insuff (DESIRAE) due to volume depletion - hydration improved azotemia but led to volume overload - now on diuretics ICM - Echocardiogram of 05-21-[address] Cadet showed LVEF 40-45%. Grade 1 diastolic dysfunction. Mild AoR. PASP 15-20 mmHg - Echo on 02/09/22: LVEF 40-45%, mod biatrial enlargement, PASP 40-45 mmHg Hematuria - resolved - management per Medical/Urology services Coronary artery disease - history of 4 vessel CABG in 1996 in [place] - Cardiac catheterization [place] [address] Cadet showing patent vein graft to the circumflex artery and vein graft to the right coronary artery, severe stenosis in the LAD, had 2 stents in the proximal LAD, underwent balloon angioplasty for in-stent restenosis, has severe stenosis in the diagonal branch that was not intervened on. - Cardiac catheterization on May 22, [address] 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 Thibodeaux managing (restarted on 02-13-[address] Martinez) * Continue ASA for CAD * Oral diltiazem stopped by Dr. Martinez - changed to long-acting BB and digoxin * Monitor labs - replace electrolytes * Check digoxin level Clinical Quality Measures AMI/AHF: ASA po Prior to arrival: Yes MIRNA SHARMA Feb 14, 2022 09:11
[2022-02-14] MEDS: SENNOSIDES 8.6 MG (SENOKOT) TAB PO SCH ×2 (09:12→21:00)
[2022-02-14] MEDS: NOREPINEPHRINE 8 MG/250 ML 250 ML IV SCH (09:12)
[2022-02-14] MEDS: DOCUSATE SODIUM 100 MG (COLACE) CAP PO SCH ×2 (09:12→21:00)
--- NOTE | 2022-02-14 13:13 | Progress Note - Hospitalist ---
Subjective HPI/CC On Admission Date Seen by Provider: Feb 14, 2022 Bria Crowder is a 76 year old male with PMH HTN, HLD, CAD s/p CABG and coronary stenting, HFrEF, COPD on home oxygen 2.5 L, who presented with chest tightness. He denies radiation to the shoulder, arm, neck, and jaw. He reports palpitations. He was also very short of breath especially with exertion. He was diaphoretic. He denies nausea and vomiting. He has lower extremity swelling whic h he says has been there for years. He smokes cigars daily. He does not drink alcohol. Subjective/Events-last exam Pt reports feeling well. No complaints. Would only like to eat but NPO for cardiology evaluation. Discussed potential [place] transfer. Objective Exam Vital Signs Vital Signs Date Time Temp Pulse Resp B/P (MAP) Pulse Ox O2 Delivery O2 Flow Rate FiO2 02/14/22 12:38 105 02/14/22 12:00 11 117/68 (84) 94 Vapotherm 25.00 40.00 02/14/22 11:51 36.4 02/14/22 08:00 40 Capillary Refill : Less Than 3 Seconds General Appearance: No Apparent Distress, WD/WN Respiratory: No Accessory Muscle Use, Other (Vapotherm) Cardiovascular: Regular Rate, Rhythm, No Murmur Gastrointestinal: Normal Bowel Sounds, Non Tender, Soft Neurologic/Psychiatric: Alert, Oriented x3 Results/Procedures Lab Laboratory Tests 02/14/22 04:45 Patient resulted labs reviewed. Imaging: Reviewed Imaging Report Assessment/Plan Assessment and Plan Assess & Plan/Chief Complaint Acute on chronic HFrEF Acute on chronic respiratory failure with hypoxia Borderline EF 40-45% Still on Vapotherm CT Chest with pulmonary edema CXR today with worsening pulmonary edema Continue Lasix Atrial flutter with rapid ventricular response Cardiology following On metoprolol now Eliquis NPO for possible cardioversion NSTEMI CAD s/p CABG Troponin elevated, presumed type II MS due to RVR Continue ASA and Plavix Hematuria Possibly traumatic Urology following COPD Chronic respiratory failure with hypoxia Supplemental oxygen as needed, 2.5 L baseline requirement May need LTACH transfer if unable to wean Hypomagnesemia Monitor and replace as needed HTN HLD DVT prophylaxis: already receiving therapeutic anticoagulation Critical Care Critically Ill Patient Clinical Quality Measures AMI/AHF: ASA po Prior to arrival: Yes TROY CHERRY MD Feb 14, 2022 13:13
--- NOTE | 2022-02-14 15:03 | Progress Note - Cardiology ---
Cardiology SOAP Progress Note Subjective: Gen malaise and weakness No focal weakness Some dizziness No cp or palp or syncope Shortness of breath improving No hematuria No n/v/d Objective: I&O/Vital Signs 02/14/22 02/14/22 02/14/22 02/14/22 04:00 04:00 04:05 05:00 Temp 36.3 Pulse 101 96 Resp 19 21 B/P (MAP) 107/74 (85) 121/75 (90) Pulse Ox 98 95 96 O2 Delivery Vapotherm Vapotherm Vapotherm O2 Flow Rate 25.00 25.00 25.00 40.00 40.00 FiO2 40 02/14/22 02/14/22 02/14/22 02/14/22 06:00 07:00 07:12 07:13 Pulse 93 91 84 Resp 18 13 B/P (MAP) 103/67 (79) 106/75 (85) Pulse Ox 97 95 94 O2 Delivery Vapotherm Vapotherm Vapotherm O2 Flow Rate 25.00 25.00 25.00 40.00 40.00 FiO2 40 02/14/22 02/14/22 02/14/22 02/14/22 08:00 08:00 08:00 09:00 Temp 36.6 Pulse 92 101 Resp 13 17 B/P (MAP) 106/55 (72) 120/83 (95) Pulse Ox 95 96 92 O2 Delivery Vapotherm Vapotherm Vapotherm O2 Flow Rate 25.00 25.00 25.00 40.00 40.00 FiO2 40 02/14/22 02/14/22 02/14/22 02/14/22 09:12 10:00 11:00 11:02 Pulse 92 95 92 Resp 11 24 B/P (MAP) 106/55 137/55 (82) 103/61 (75) Pulse Ox 92 92 93 O2 Delivery Vapotherm Vapotherm Vapotherm O2 Flow Rate 25.00 25.00 25.00 40.00 40.00 FiO2 40 02/14/22 02/14/22 02/14/22 02/14/22 11:51 12:00 12:38 13:00 Temp 36.4 Pulse 116 105 93 Resp 11 16 B/P (MAP) 117/68 (84) 97/64 (75) Pulse Ox 94 92 O2 Delivery Vapotherm Vapotherm O2 Flow Rate 25.00 25.00 40.00 40.00 02/14/22 14:47 Pulse Ox 93 O2 Delivery Vapotherm O2 Flow Rate 20.00 FiO2 40 02/14/22 00:00 Intake Total 1410 ml Output Total 1925 ml Balance -515 ml Constitutional: AAO x 3, well-developed, other (thin-appearing) Respiratory: No accessory muscle use, No respiratory distress; rhonchi (scattered), other (prolonged exp phase) Cardiovascular: irregularly irregular Gastrointestional: No tender; soft, audible bowel sounds Genital/Rectal: other (urinary catheter with hematuria) Extremities: no lower extremity edema bilateral Neurologic/Psychiatric: other (moves all limbs equally) Skin: No rash on exposed areas, No ulcerations on exposed areas Results/Procedures: Labs Laboratory Tests 02/14/22 04:45: White Blood Count 9.2, Red Blood Count 4.80, Hemoglobin 14.7, Hematocrit 43, Mean Corpuscular Volume 90, Mean Corpuscular Hemoglobin 31, Mean Corpuscular Hemoglobin Concent 34, Red Cell Distribution Width 14.2, Platelet Count 218, Mean Platelet Volume 10.9, Immature Granulocyte % (Auto) 0, Neutrophils (%) (Auto) 87H, Lymphocytes (%) (Auto) 3L, Monocytes (%) (Auto) 9, Eosinophils (%) (Auto) 0, Basophils (%) (Auto) 0, Neutrophils # (Auto) 8.0H, Lymphocytes # (Auto) 0.3L, Monocytes # (Auto) 0.8, Eosinophils # (Auto) 0.0, Basophils # (Auto) 0.0, Immature Granulocyte # (Auto) 0.0, Sodium Level 134L, Potassium Level 4.2, Chloride Level 94L, Carbon Dioxide Level 27, Anion Gap 13, Blood Urea Nitrogen 30H, Creatinine 1.22, Estimat Glomerular Filtration Rate 62, BUN/Creatinine Ratio 25, Glucose Level 127H, Calcium Level 9.7, Magnesium Level 1.7 Microbiology 02/08/22 MRSA Screen - Final, Complete MRSA not isolated Laboratory Tests 02/13/22 03:46 02/14/22 04:45 A/P: Assessment: Newly dx atrial flutter w/ RVR - on EKG of 02-08-22 at [facility] ED - rate controlled - on BB and Digoxin - OAC with Eliquis Type 2 [place] - RVR in presence of underlying CAD Acute renal insuff (DESIRAE) due to volume depletion - hydration improved azotemia but led to volume overload - now on diuretics ICM - Echocardiogram of 05-21-[address] Cadet showed LVEF 40-45%. Grade 1 diastolic dysfunction. Mild AoR. PASP 15-20 mmHg - Echo on 02/09/22: LVEF 40-45%, mod biatrial enlargement, PASP 40-45 mmHg Hematuria - resolved - management per Medical/Urology services Coronary artery disease - history of 4 vessel CABG in 1996 in [place] - Cardiac catheterization [place] [address] Cadet showing patent vein graft to the circumflex artery and vein graft to the right coronary artery, severe stenosis in the LAD, had 2 stents in the proximal LAD, underwent balloon angioplasty for in-stent restenosis, has severe stenosis in the diagonal branch that was not intervened on. - Cardiac catheterization on May 22, [address] 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 Thibodeaux managing (restarted on 02-13-[address] Martinez) * Continue ASA for CAD * Oral diltiazem stopped by Dr. Martinez - changed to long-acting BB and digoxin * Monitor labs - replace electrolytes * Check digoxin level * Increase ambulation Clinical Quality Measures AMI/AHF: ASA po Prior to arrival: Yes MONICA CRUZ MD FACP FAC CCDS Feb 14, 2022 15:03
[2022-02-14] MEDS: ROSUVASTATIN 10 MG (CRESTOR) TABLET PO SCH (20:52)
[2022-02-14] MEDS: MELATONIN 3 MG TABLET PO PRN (23:00)
[2022-02-15] MEDS: NS IV 1000 ML 1,000 ML IV SCH ×3 (03:00→22:12)
[2022-02-15] MEDS: RT-ALBUTEROL/IPRATROPIUM 3 ML (DUONEB) VIAL INH SCH ×4 (03:03→19:06)
[2022-02-15] MEDS: NOREPINEPHRINE 8 MG/250 ML 250 ML IV SCH (04:30)
[2022-02-15 05:53] LABS: BASOPHILS % (AUTO) 0 % (0-10); EOSINOPHILS % (AUTO) 0 % (0-10); HEMATOCRIT 48 % (40-54); HEMOGLOBIN 16.4 g/dL (13.3-17.7); LYMPHOCYTES # (AUTO) 0.4 10^3/uL (1.0-4.0); LYMPHOCYTES % (AUTO) 4 % (12-44); MEAN CORPUSCULAR HEMOGLOBIN 31 pg (25-34); MEAN CORPUSCULAR HGB CONC 35 g/dL (32-36); MEAN CORPUSCULAR VOLUME 90 fL (80-99); MONOCYTES # (AUTO) 0.9 10^3/uL (0.0-1.0); MONOCYTES % (AUTO) 9 % (0-12); NEUTROPHILS # (AUTO) 8.6 10^3/uL (1.8-7.8); NEUTROPHILS % (AUTO) 87 % (42-75); PLATELET COUNT 167 10^3/uL (130-400); WHITE BLOOD COUNT 9.9 10^3/uL (4.3-11.0)
[2022-02-15] MEDS: KCL 20 MEQ TAB (K-DUR) PO SCH (06:00)
[2022-02-15] MEDS: POTASSIUM CL 10MEQ/50ML IVPB 50 ML IV SCH (06:00)
[2022-02-15] MEDS: MAGNESIUM 1 GM/100 ML IVPB 100 ML IV SCH (06:00)
--- NOTE | 2022-02-15 07:16 | Progress Note-Pre Operative ---
Pre-Operative Progress Note Date of Available H&P: Feb 15, 2022 Date H&P Reviewed: Feb 15, 2022 Time H&P Reviewed: 07:16 Changes from last HP NONE Pre-Operative Diagnosis: GROSS HEMATURIA ENOC MULTANI MD Feb 15, 2022 07:16
[2022-02-15] MEDS ORDERED: LIDOCAINE UROJET 2% GEL 10 ML PKG ONE (08:32)
[2022-02-15 08:49] LABS: CALCIUM 9.6 MG/DL (8.5-10.1); CREATININE SERUM 1.1 MG/DL (0.60-1.30); POTASSIUM 4.1 MMOL/L (3.6-5.0)
--- NOTE | 2022-02-15 08:59 | Progress Note - Cardiology ---
Cardiology SOAP Progress Note Subjective: Feels a little more SOB this morning No c/o CP or palpitations Objective: I&O/Vital Signs 02/15/22 02/15/22 02/15/22 02/15/22 21:22 22:00 23:38 23:40 Temp 36.6 Pulse 96 87 Resp 19 21 B/P (MAP) 114/68 (83) 114/56 (75) Pulse Ox 94 97 97 96 O2 Delivery High Flow N/C High Flow N/C High Flow N/C High Flow N/C O2 Flow Rate 8.00 8.00 8.00 8.00 02/16/22 02/16/22 02/16/22 02/16/22 00:00 01:00 01:00 01:59 Pulse 92 90 90 92 Resp 17 13 B/P (MAP) 110/70 (83) 113/78 (90) 110/70 Pulse Ox 99 99 O2 Delivery High Flow N/C High Flow N/C O2 Flow Rate 8.00 8.00 02/16/22 02/16/22 02/16/22 02/16/22 02:00 03:12 03:49 03:49 Temp 36.8 Pulse 83 85 Resp 12 13 B/P (MAP) 125/82 (96) 116/71 (86) Pulse Ox 96 97 97 97 O2 Delivery High Flow N/C High Flow N/C High Flow N/C High Flow N/C O2 Flow Rate 8.00 6.00 8.00 8.00 02/16/22 02/16/22 02/16/22 02/16/22 04:00 05:00 06:00 08:00 Temp 36.1 Pulse 90 91 87 Resp 12 13 B/P (MAP) 116/76 (89) 122/80 (94) 114/84 (94) Pulse Ox 98 96 97 O2 Delivery High Flow N/C High Flow N/C High Flow N/C O2 Flow Rate 8.00 8.00 8.00 02/16/22 08:00 Pulse Ox 96 O2 Delivery High Flow N/C O2 Flow Rate 8.00 02/16/22 00:00 Intake Total 1165 ml Output Total 1450 ml Balance -285 ml Constitutional: AAO x 3, well-developed, other (thin-appearing) Respiratory: No accessory muscle use, No respiratory distress; rhonchi (scattered), other (prolonged exp phase) Cardiovascular: irregularly irregular Gastrointestional: No tender; soft, audible bowel sounds Extremities: no lower extremity edema bilateral Neurologic/Psychiatric: other (moves all limbs equally) Skin: No rash on exposed areas, No ulcerations on exposed areas Results/Procedures: Labs Laboratory Tests 02/16/22 06:30: White Blood Count 10.7, Red Blood Count 4.89, Hemoglobin 15.4, Hematocrit 44, Mean Corpuscular Volume 90, Mean Corpuscular Hemoglobin 32, Mean Corpuscular He moglobin Concent 35, Red Cell Distribution Width 14.0, Platelet Count 293, Mean Platelet Volume 10.4, Immature Granulocyte % (Auto) 0, Neutrophils (%) (Auto) 84H, Lymphocytes (%) (Auto) 7L, Monocytes (%) (Auto) 9, Eosinophils (%) (Auto) 0, Basophils (%) (Auto) 0, Neutrophils # (Auto) 9.0H, Lymphocytes # (Auto) 0.7L, Monocytes # (Auto) 1.0, Eosinophils # (Auto) 0.0, Basophils # (Auto) 0.0, Immature Granulocyte # (Auto) 0.0, Neutrophils % (Manual) 85, Lymphocytes % (Manual) 5, Monocytes % (Manual) 8, Eosinophils % (Manual) 1, Reactive Lymphocytes 1, Blood Morphology Comment NORMAL, Sodium Level 136, Potassium Level 4.2, Chloride Level 94L, Carbon Dioxide Level 32, Anion Gap 10, Blood Urea Nitrogen 41H, Creatinine 1.18, Estimat Glomerular Filtration Rate 65, BUN/ Creatinine Ratio 35, Glucose Level 106H, Calcium Level 9.6, Digoxin Level 0.66L Microbiology 02/08/22 MRSA Screen - Final, Complete MRSA not isolated A/P: Assessment: Newly dx atrial flutter w/ RVR - on EKG of 02-08-22 at [facility] ED - rate controlled - on BB and Digoxin - OAC with Eliquis Type 2 [place] - RVR in presence of underlying CAD Acute renal insuff (DESIRAE) due to volume depletion - hydration improved azotemia but led to volume overload - now on diuretics ICM - Echocardiogram of 05-21-[address] Cadet showed LVEF 40-45%. Grade 1 diastolic dysfunction. Mild AoR. PASP 15-20 mmHg - Echo on 02/09/22: LVEF 40-45%, mod biatrial enlargement, PASP 40-45 mmHg Hematuria - resolved - management per Medical/Urology services Coronary artery disease - history of 4 vessel CABG in 1996 in [place] - Cardiac catheterization [place] [address] Cadet showing patent vein graft to the circumflex artery and vein graft to the right coronary artery, severe stenosis in the LAD, had 2 stents in the proximal LAD, underwent balloon angioplasty for in-stent restenosis, has severe stenosis in the diagonal branch that was not intervened on. - Cardiac catheterization on May 22, [address] 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 Thibodeaux managing - cystoscopy planned for later today * Continue ASA for CAD * Continue current regimen - rate controlled * Monitor labs - replace electrolytes * Increase ambulation Clinical Quality Measures AMI/AHF: ASA po Prior to arrival: Yes MIRNA SHARMA Feb 15, 2022 08:59
[2022-02-15] MEDS: DOCUSATE SODIUM 100 MG (COLACE) CAP PO SCH ×3 (09:10→20:22)
[2022-02-15] MEDS: SENNOSIDES 8.6 MG (SENOKOT) TAB PO SCH ×3 (09:10→20:22)
[2022-02-15] MEDS: FUROSEMIDE 40 MG (LASIX) TAB PO SCH (09:17)
[2022-02-15] MEDS: DIGOXIN 0.125 MG (LANOXIN) TAB PO SCH (09:17)
[2022-02-15] MEDS: meTOproloL SUCCINATE 50 MG (TOPROL XL) TAB PO SCH (09:18)
[2022-02-15] MEDS: predniSONE 10 MG TAB PO SCH (09:18)
[2022-02-15] MEDS: PANTOPRAZOLE 40 MG (PROTONIX) TAB PO SCH ×2 (09:18→09:43)
[2022-02-15] MEDS: ASPIRIN 81 MG CHEW (CHILDREN'S ASA) PO SCH (09:43)
[2022-02-15] MEDS: APIXABAN 5 MG (ELIQUIS) TABLET PO SCH ×2 (09:43→20:21)
--- NOTE | 2022-02-15 09:47 | Progress Note - Hospitalist ---
Subjective HPI/CC On Admission Date Seen by Provider: Feb 15, 2022 Brai Crowder is a 76 year old male with PMH HTN, HLD, CAD s/p CABG and coronary stenting, HFrEF, COPD on home oxygen 2.5 L, who presented with chest tightness. He denies radiation to the shoulder, arm, neck, and jaw. He reports palpitations. He was also very short of breath especially with exertion. He was diaphoretic. He denies nausea and vomiting. He has lower extremity swelling whic h he says has been there for years. He smokes cigars daily. He does not drink alcohol. Subjective/Events-last exam Pt reports doing ok. No complaints. Sleeping when I entered the room. Still on Vapotherm. Objective Exam Vital Signs Vital Signs Date Time Temp Pulse Resp B/P (MAP) Pulse Ox O2 Delivery O2 Flow Rate FiO2 02/15/22 09:00 94 13 117/75 (89) 95 Vapotherm 20.00 50.00 02/15/22 07:54 36.6 02/15/22 07:00 40 Capillary Refill : Less Than 3 Seconds General Appearance: No Apparent Distress, Chronically ill Respiratory: Lungs Clear, Other (on Vapotherm) Cardiovascular: Regular Rate, Rhythm, No Murmur Neurologic/Psychiatric: Alert, Oriented x3 Results/Procedures Lab Laboratory Tests 02/15/22 04:30 02/15/22 06:37 Patient resulted labs reviewed. Imaging: Reviewed Imaging Report Assessment/Plan Assessment and Plan Assess & Plan/Chief Complaint Acute on chronic HFrEF Acute on chronic respiratory failure with hypoxia Borderline EF 40-45% Still on Vapotherm- I attempted to wean down oxygen as was satting 95% but back up to 40% within the hour Continue Lasix Negative 1425mL yesterday Atrial flutter with rapid ventricular response Cardiology following On metoprolol now Eliquis NSTEMI CAD s/p CABG Troponin elevated, presumed type II MT due to RVR Continue ASA and Plavix Hematuria Possibly traumatic Urology following COPD Chronic respiratory failure with hypoxia Supplemental oxygen as needed, 2.5 L baseline requirement May need LTACH transfer if unable to wean Hypomagnesemia Monitor and replace as needed HTN HLD DVT prophylaxis: already receiving therapeutic anticoagulation Critical Care Critically Ill Patient Clinical Quality Measures AMI/AHF: ASA po Prior to arrival: Yes TROY CHERRY MD Feb 15, 2022 09:47
[2022-02-15] MEDS ORDERED: LIDOCAINE UROJET 2% GEL 10 ML PKG TOP ONE ×2 (09:59→10:01)
--- NOTE | 2022-02-15 10:06 | Progress Note-Post Operative ---
Post-Operative Progess Note Surgeon (s)/Applications Development Analyst (s) Surgeon ENOC MULTANI MD Applications Development Analyst: NONE Pre-Operative Diagnosis GROSS HEMATURIA Post-Operative Diagnosis SAME, BPH Procedure & Operative Findings Date of Procedure 02/15/22 Procedure Performed/Findings CYSTOSCOPY Anesthesia Type LOCAL Estimated Blood Loss Estimated blood loss (mL): NONE Specimens/Packing Specimens Removed NONE Packing: NONE ENOC MULTANI MD Feb 15, 2022 10:06
[2022-02-15] MEDS: RT--FLUTICASONE/SALMETEROL 113-14 (AIRDUO RespiCLICK) IH SCH ×2 (10:51→19:06)
--- NOTE | 2022-02-15 11:14 | Tele-ICU Progress Note ---
Subjective Date Seen by a Provider: Feb 15, 2022 Time Seen by a Provider: 11:12 Subjective/Events-last exam (Tele-ICU Physician , Progress Note ) Service provided via interactive audio and video telecommunications E-CARE system to a patient admitted to ICU bed in [facility]. Available chart/ vitals / labs / Images reviewed Video assessment done using teleICU camera, rest of exam as per RN Discussed with RN Events overnight : Afebrile hemodynamically stable Respiratory - I/O = Drips: Pressors- no Consultants: Hospital course: (02/08) 76M Admitted for rapid afib, NSTEMI, CHF, COPD, DESIRAE (02/09) Renals improving, remains atrial flutter (02/10) Increased O2 need-received lasix. CTA chest: moderate pulmonary edema, small pleural effusions and diffuse body wall edema (02/13) hgb holding in 8's. clear yellow urine, cystoscopy 02-15 - NEG Patient is seen today due to persistent and new A/P Acute hypoxic resp failure, supected VO and atelectasis , with AECOPD component - VT 20L 50% -cont diuresis - cont steroids and br-dilators - follow abg if incr WOB or incr somnolence NSTEMI, CAD s/p CABG - as per cards Afib flutter -Cardiology following - rate controlled - on Eliquis AECOPD with chronic hypoxic resp failure -on home oxygen 2.5 L - steroids po now - nebs Acute on chronic HFrEF - con diuresis, monitor lytes and renal functio -EF 40-45% Hematuria -Urology following, s/p cysto 02/15 - negative Lines : per , (Central Line Necessity Reviewed) Gonzalez: to be removed 02/15 OG: Nutrition: Analgesia: Anxiety/ delirium VTE Prophylaxis: eliquis Stress Ulcer Prophylaxis: ppi Plans in collaboration with bedside consultants and IM MDs. Discussed with RN to reach out if any questions or concerns A total of 32 minutes of critical care time was devoted to this patient today, required to treat and/or prevent further deterioration of critical care condition ( as above ) . Sepsis Event Evaluation Height, Weight, BMI Height: '" Weight: lbs. oz. kg; 23.27 BMI Method:Stated Exam Exam Patient acknowledged, consented, and participated in this virtual visit which was conducted using real time audio/video Vital Signs Date Time Temp Pulse Resp B/P (MAP) Pulse Ox O2 Delivery O2 Flow Rate FiO2 02/15/22 10:00 122 20 127/81 (96) 94 Vapotherm 20.00 50.00 02/15/22 09:00 94 13 117/75 (89) 95 Vapotherm 20.00 50.00 02/15/22 08:27 91 Vapotherm 20.00 50.00 02/15/22 08:20 89 Vapotherm 20.00 40.00 02/15/22 08:00 94 Vapotherm 20.00 30 02/15/22 08:00 94 14 113/68 (83) 92 Vapotherm 25.00 30.00 02/15/22 07:54 36.6 02/15/22 07:00 95 16 114/70 (85) 92 Vapotherm 25.00 40.00 02/15/22 07:00 95 02/15/22 07:00 92 Vapotherm 20.00 40 02/15/22 06:00 97 14 97/73 (81) 92 Vapotherm 25.00 40.00 02/15/22 05:00 98 15 111/63 (79) 92 Vapotherm 25.00 40.00 02/15/22 04:00 94 Vapotherm 20.00 40 02/15/22 04:00 91 14 97/63 (74) 92 Vapotherm 25.00 40.00 02/15/22 03:03 93 Vapotherm 20.00 40 02/15/22 03:00 85 15 94/58 (70) 94 Vapotherm 25.00 40.00 02/15/22 02:00 86 14 93/56 (68) 95 Vapotherm 25.00 40.00 02/15/22 01:00 101 02/15/22 01:00 101 16 106/77 (87) 92 Vapotherm 25.00 40.00 02/15/22 00:00 104 13 107/57 (74) 86 Vapotherm 25.00 40.00 02/14/22 23:59 93 Vapotherm 20.00 40 02/14/22 23:53 36.3 02/14/22 23:00 96 17 97/68 (78) 94 Vapotherm 25.00 40.00 02/14/22 22:00 111 24 101/60 (74) 91 Vapotherm 25.00 40.00 02/14/22 21:01 95 Vapotherm 20.00 40 02/14/22 21:00 122 21 124/79 (94) 93 Vapotherm 25.00 40.00 02/14/22 21:00 95 Vapotherm 20.00 40 02/14/22 20:00 94 Vapotherm 20.00 40 02/14/22 20:00 104 14 108/69 (82) 94 Vapotherm 25.00 40.00 02/14/22 19:37 36.4 02/14/22 19:00 100 19 116/63 (80) 94 Vapotherm 25.00 40.00 02/14/22 19:00 109 02/14/22 18:55 95 Vapotherm 20.00 40 02/14/22 18:00 115 18 122/56 (78) 93 Vapotherm 25.00 40.00 02/14/22 17:00 98 14 97/73 (81) 91 Vapotherm 25.00 40.00 02/14/22 16:00 112 14 96/69 (78) 92 Vapotherm 25.00 40.00 02/14/22 16:00 95 Vapotherm 20.00 40 02/14/22 16:00 36.3 02/14/22 15:00 102 13 104/66 (79) 89 Vapotherm 25.00 40.00 02/14/22 14:47 93 Vapotherm 20.00 40 02/14/22 14:00 95 15 101/64 (76) 97 Vapotherm 25.00 40.00 02/14/22 13:00 93 16 97/64 (75) 92 Vapotherm 25.00 40.00 02/14/22 12:38 105 02/14/22 12:00 96 Vapotherm 25.00 40 02/14/22 12:00 116 11 117/68 (84) 94 Vapotherm 25.00 40.00 02/14/22 11:51 36.4 I & O 02/15/22 07:00 Intake Total 1400 ml Output Total 2500 ml Balance -1100 ml Height & Weight Height: '" Weight: lbs. oz. kg; 23.27 BMI Method:Stated General Appearance: No Apparent Distress, Chronically ill HEENT: PERRL/EOMI, Pharynx Normal Neck: Normal Inspection, Supple Respiratory: Lungs Clear, Other (on Vapotherm) Cardiovascular: Regular Rate, Rhythm, No Murmur Capillary Refill: Less Than 3 Seconds Gastrointestinal: normal bowel sounds, non tender, soft Extremity: Non Tender, No Pedal Edema Neurologic/Psychiatric: Alert, Oriented x3 Skin: Normal Color, Warm/Dry Results Lab Laboratory Tests 02/14/22 04:45 02/15/22 04:30 02/15/22 06:37 Assessment/Plan Assessment/Plan 1 PARUL MONTGOMERY MD Feb 15, 2022 11:14
--- NOTE | 2022-02-15 17:22 | Progress Note - Cardiology ---
Cardiology SOAP Progress Note Subjective: Gen malaise Shortness of breath with activity No cp No n/v/d Poor urinary stream. Started on meds by Dr Thibodeaux for that Objective: I&O/Vital Signs 02/15/22 02/15/22 02/15/22 02/15/22 06:00 07:00 07:00 07:00 Pulse 97 95 95 Resp 14 16 B/P (MAP) 97/73 (81) 114/70 (85) Pulse Ox 92 92 92 O2 Delivery Vapotherm Vapotherm Vapotherm O2 Flow Rate 25.00 20.00 25.00 40.00 40.00 FiO2 40 02/15/22 02/15/22 02/15/22 02/15/22 07:54 08:00 08:00 08:20 Temp 36.6 Pulse 94 Resp 14 B/P (MAP) 113/68 (83) Pulse Ox 92 94 89 O2 Delivery Vapotherm Vapotherm Vapotherm O2 Flow Rate 25.00 20.00 20.00 30.00 40.00 FiO2 30 02/15/22 02/15/22 02/15/22 02/15/22 08:27 09:00 10:00 10:52 Pulse 94 122 Resp 13 20 B/P (MAP) 117/75 (89) 127/81 (96) Pulse Ox 91 95 94 96 O2 Delivery Vapotherm Vapotherm Vapotherm Vapotherm O2 Flow Rate 20.00 20.00 20.00 20.00 50.00 50.00 50.00 FiO2 35 02/15/22 02/15/22 02/15/22 02/15/22 11:00 12:00 12:00 12:00 Temp 36.8 Pulse 101 94 Resp 19 28 B/P (MAP) 112/60 (77) 121/78 (92) Pulse Ox 93 94 93 O2 Delivery Vapotherm Vapotherm Vapotherm O2 Flow Rate 20.00 20.00 20.00 45.00 45.00 FiO2 45 02/15/22 02/15/22 02/15/22 02/15/22 13:00 13:00 14:00 14:48 Pulse 97 93 102 Resp 19 22 B/P (MAP) 101/62 (75) 126/92 (103) Pulse Ox 93 94 97 O2 Delivery Vapotherm Vapotherm Vapotherm O2 Flow Rate 20.00 20.00 20.00 45.00 45.00 FiO2 40 02/15/22 02/15/22 16:00 16:00 Temp 36.3 Pulse Ox 94 O2 Delivery Vapotherm O2 Flow Rate 20.00 FiO2 45 02/15/22 00:00 Intake Total 1200 ml Output Total 1350 ml Balance -150 ml Constitutional: AAO x 3, well-developed, other (thin-appearing) Respiratory: No accessory muscle use, No respiratory distress; rhonchi (scattered), other (prolonged exp phase) Cardiovascular: irregularly irregular Gastrointestional: No tender; soft, audible bowel sounds Extremities: no lower extremity edema bilateral Neurologic/Psychiatric: other (moves all limbs equally) Skin: No rash on exposed areas, No ulcerations on exposed areas Results/Procedures: Labs Laboratory Tests 02/15/22 04:30: White Blood Count 9.9, Red Blood Count 5.32, Hemoglobin 16.4, Hematocrit 48, Mean Corpuscular Volume 90, Mean Corpuscular Hemoglobin 31, Mean Corpuscular Hemoglobin Concent 35, Red Cell Distribution Width 14.2, Platelet Count 167, Mean Platelet Volume 12.0, Immature Granulocyte % (Auto) 0, Neutrophils (%) (Auto) 87H, Lymphocytes (%) (Auto) 4L, Monocytes (%) (Auto) 9, Eosinophils (%) (Auto) 0, Basophils (%) (Auto) 0, Neutrophils # (Auto) 8.6H, Lymphocytes # (Auto) 0.4L, Monocytes # (Auto) 0.9, Eosinophils # (Auto) 0.0, Basophils # (Auto) 0.0, Immature Granulocyte # (Auto) 0.0 02/15/22 06:37: Sodium Level 136, Potassium Level 4.1, Chloride Level 94L, Carbon Dioxide Level 31, Anion Gap 11, Blood Urea Nitrogen 39H, Creatinine 1.10, Estimat Glomerular Filtration Rate 70, BUN/Creatinine Ratio 35, Glucose Level 127H, Calcium Level 9.6, Magnesium Level 1.8, Digoxin Level 0.56L Microbiology 02/08/22 MRSA Screen - Final, Complete MRSA not isolated Laboratory Tests 02/14/22 04:45 02/15/22 04:30 02/15/22 06:37 A/P: Assessment: Newly dx atrial flutter w/ RVR - on EKG of 12-6-22 at [facility] ED - rate controlled - on BB and Digoxin - OAC with Eliquis Type 2 ND - RVR in presence of underlying CAD Acute renal insuff (DESIRAE) due to volume depletion - hydration improved azotemia but led to volume overload - now on diuretics ICM - Echocardiogram of 05-21-[address] Cadet showed LVEF 40-45%. Grade 1 diastolic dysfunction. Mild AoR. PASP 15-20 mmHg - Echo on 02/09/22: LVEF 40-45%, mod biatrial enlargement, PASP 40-45 mmHg Hematuria - resolved - management per Medical/Urology services Coronary artery disease - history of 4 vessel CABG in 1996 in [place] - Cardiac catheterization [place] [address] Cadet showing patent vein graft to the circumflex artery and vein graft to the right coronary artery, severe stenosis in the LAD, had 2 stents in the proximal LAD, underwent balloon angioplasty for in-stent restenosis, has severe stenosis in the diagonal branch that was not intervened on. - Cardiac catheterization on May 22, [address] Cadet showing moderate stenosis in the stent of the LAD and distal left main, moderate diffuse disease, diagonal branch had significatn disase but was a small artery, occluded vein graft to the circumflex artery and had moderately severe ostial stenosis of the vein graft to the right coronary artery to which balloon angioplasty was undertaken with good results H/o hypertension Hyperlipidemia Tobaccoism - 1/2 PPD of cigs - cessation advised DM 2 COPD - oxygen dependent 2.5L/NC Plan: * Eliquis for stroke prophylaxis * Continue ASA for CAD * Add spironolactone to furosemide * Add SGLT-2 inhib * Monitor labs, including dig level * Increase ambulation Clinical Quality Measures AMI/AHF: ASA po Prior to arrival: Yes MONICA CRUZ MD FACP FAC CCDS Feb 15, 2022 17:22
[2022-02-15] MEDS: TAMSULOSIN 0.4 MG (FLOMAX) CAP PO SCH (18:47)
[2022-02-15] MEDS: ROSUVASTATIN 10 MG (CRESTOR) TABLET PO SCH (20:21)
--- NOTE | 2022-02-15 20:33 | OPERATIVE REPORT ---
DATE OF SERVICE: 02/15/2022 PREOPERATIVE DIAGNOSIS: Gross hematuria. POSTOPERATIVE DIAGNOSIS: Gross hematuria and BPH. OPERATION PERFORMED: Cystoscopy. SURGEON:. Matt Multani MD ANESTHESIA: Local. COMPLICATIONS: None. PROCEDURE: After removing the Gonzalez catheter, the genitalia were prepped and draped in the usual sterile fashion. Urethra was infiltrated with 2% lidocaine jelly and a penile clamp was applied. This was then removed and a flexible cystoscope was introduced under vision. Anterior urethra was normal. No false passage. No evidence of renal trauma. The prostate was enlarged, hyperemic lateral lobes meeting in the midline causing bladder neck obstruction. Bladder revealed 4+ trabeculation with cellules. Catheter cystitis. No foreign body or carcinoma in situ or bladder tumor or stone visualized. Ureteric orifices with clear efflux. Cystoscopy confirmed an antegrade fashion and the cystoscope was removed. The patient tolerated the procedure and anesthesia well, remained in his bed in stable condition. Plan trial of voiding. If he fails, we will reinsert the Gonzalez catheter and will start him on Flomax and Proscar, unless he is already on them Plan, which would explain to the patient. cc: Valerie Olvera MD, requested, - unable to deliver Job ID: [id number] DocumentID: [id number] Dictated Date: 02/15/2022 10:29:12 [employer] Security Assessment Date: 02/15/2022 20:31:00 Dictated By: MATT MULTANI MD
[2022-02-16] MEDS: NOREPINEPHRINE 8 MG/250 ML 250 ML IV SCH (01:59)
[2022-02-16] MEDS: RT-ALBUTEROL/IPRATROPIUM 3 ML (DUONEB) VIAL INH SCH ×4 (03:12→20:41)
[2022-02-16 06:40] LABS: BASOPHILS % (AUTO) 0 % (0-10); EOSINOPHILS % (AUTO) 0 % (0-10); HEMATOCRIT 44 % (40-54); HEMOGLOBIN 15.4 g/dL (13.3-17.7); LYMPHOCYTES # (AUTO) 0.7 10^3/uL (1.0-4.0); LYMPHOCYTES % (AUTO) 7 % (12-44); MEAN CORPUSCULAR HEMOGLOBIN 32 pg (25-34); MEAN CORPUSCULAR HGB CONC 35 g/dL (32-36); MEAN CORPUSCULAR VOLUME 90 fL (80-99); MEAN PLATELET VOLUME 10.4 fL (9.0-12.2); MONOCYTES % (AUTO) 9 % (0-12); NEUTROPHILS % (AUTO) 84 % (42-75); PLATELET COUNT 293 10^3/uL (130-400); WHITE BLOOD COUNT 10.7 10^3/uL (4.3-11.0)
[2022-02-16 06:54] LABS: POTASSIUM 4.2 MMOL/L (3.6-5.0)
[2022-02-16 06:55] LABS: CALCIUM 9.6 MG/DL (8.5-10.1)
[2022-02-16 07:00] LABS: CREATININE SERUM 1.18 MG/DL (0.60-1.30)
[2022-02-16 07:03] LABS: EOSINOPHILS % (MANUAL) 1 %; LYMPHOCYTES % (MANUAL) 5 %; MONOCYTES % (MANUAL) 8 %; NEUTROPHILS % (MANUAL) 85 %; RBC MORPH NORMAL; REACTIVE LYMPHOCYTES 1 %
[2022-02-16] MEDS: MAGNESIUM 1 GM/100 ML IVPB 100 ML IV SCH (07:51)
[2022-02-16] MEDS: POTASSIUM CL 10MEQ/50ML IVPB 50 ML IV SCH (07:51)
[2022-02-16] MEDS: KCL 20 MEQ TAB (K-DUR) PO SCH (07:52)
[2022-02-16] MEDS: ASPIRIN 81 MG CHEW (CHILDREN'S ASA) PO SCH (08:07)
[2022-02-16] MEDS: APIXABAN 5 MG (ELIQUIS) TABLET PO SCH ×2 (08:07→20:09)
[2022-02-16] MEDS: DIGOXIN 0.125 MG (LANOXIN) TAB PO SCH (08:07)
[2022-02-16] MEDS: FUROSEMIDE 40 MG (LASIX) TAB PO SCH (08:07)
[2022-02-16] MEDS: predniSONE 10 MG TAB PO SCH (08:07)
[2022-02-16] MEDS: PANTOPRAZOLE 40 MG (PROTONIX) TAB PO SCH (08:07)
[2022-02-16] MEDS: meTOproloL SUCCINATE 50 MG (TOPROL XL) TAB PO SCH (08:07)
[2022-02-16] MEDS: HYDROcodone/APAP 5 MG/325 MG (LORTAB) TAB PO PRN (08:08)
[2022-02-16] MEDS: SPIRONOLACTONE 25 MG (ALDACTONE) TAB PO SCH (08:08)
[2022-02-16] MEDS: NS IV 1000 ML 1,000 ML IV SCH (08:08)
[2022-02-16] MEDS: EMPAGLIFLOZIN 10 MG TABLET (JARDIANCE) PO SCH (08:08)
[2022-02-16] MEDS: DOCUSATE SODIUM 100 MG (COLACE) CAP PO SCH ×2 (08:09→20:09)
[2022-02-16] MEDS: SENNOSIDES 8.6 MG (SENOKOT) TAB PO SCH ×2 (08:09→20:09)
[2022-02-16] MEDS: RT--FLUTICASONE/SALMETEROL 113-14 (AIRDUO RespiCLICK) IH SCH ×2 (10:15→20:44)
--- NOTE | 2022-02-16 11:49 | Physical Therapy Evaluation ---
PT Evaluation-General Medical Diagnosis Admission Date Feb 08, 2022 at 15:18 Medical Diagnosis: atrial flutter with RVR Onset Date: Feb 08, 2022 Therapy Diagnosis Therapy Diagnosis: independent with mobility Precautions Precautions/Isolations: Standard Precautions Weight Bear Status Right Lower Extremity: Right Weight Bearing/Tolerated Left Lower Extremity: Left Weight Bearing/Tolerated Referral Physician: Tarsha Reason for Referral: Evaluation/Treatment Medical History Additional Medical History Past Medical History Surgeries: Appendectomy, Coronary Stent COPD Currently Using CPAP: No Currently Using BIPAP: No Coronary Artery Disease, High Cholesterol, Hypertension Hearing Impairment: Hard of Hearing Anxiety Blood Disorders: No Reviewed History: Yes Social History Current Living Status: Spouse Entry Into Home: Stairs With Railing PT Steps Into Home: 2 Prior Prior Level of Function SCALE: Activities may be completed with or without assistive devices. 2-Bszurwgiyn-onvqzts completes the activity by him/herself with no assistance from a helper. 5-Set-up or Clean-up Assistance-helper sets up or cleans up; patient completes activity. [place] assists only prior to or following the activity. 4-Supervision or Touching Assistance-helper provides verbal cues and/or touching/steadying and/or contact guard assistance as patient completes activity. Assistance may be provided throughout the activity or intermittently. 3-Partial/Moderate Assistance-helper does LESS THAN HALF the effort. [place] lifts, holds or supports trunk or limbs, but provides less than half the effort. 2-Substantial/Maximal Assistance-helper does MORE THAN HALF the effort. [place] lifts or holds trunk or limbs and provides more than half the effort. 3-Avwbrowrn-ofwams does ALL the effort. Patient does none of the effort to complete the activity. Or, the assistance of 2 or more helpers is required for the patient to complete the activity. If activity was not attempted, code reason: 7-Patient Refused. 9-Not Applicable-not attempted and the patient did not perform the activity before the current illness, exacerbation or injury. 10-Not Attempted due to Environmental Limitations-(lack of equipment, weather restraints, etc.). 88-Not Attempted due to Medical Conditions or Safety Concerns. Bed Mobility: 6 Transfers (B,C,W/C): 6 Gait: 6 Stairs: 6 Indoor Mobility (Ambulation): Independent Stairs: Independent PT Evaluation-Current Subjective Patient in bed pre tx, agrees to PT, has no complaints of pain. Pt/Family Goals "to go home" Objective Patient Orientation: Person, Place, Situation Attachments: Oxygen ROM/Strength ROM Lower Extremities WNL Strength Lower Extremities grossly 5/5 BLE except for hip flexion 4/5. Sensory Vision: Wears Glasses Hearing: Impaired Sensation Right Lower Extremit: Intact Sensation Left Lower Extremity: Intact Transfers Roll Left to Right (QC): 6 Sit to Lying (QC): 6 Lying to Sitting/Side of Bed(Q: 6 Sit to Stand (QC): 6 Chair/Aan-mt-Nyyoh Xfer(QC): 6 Gait Does the Patient Walk?: Yes Mode of Locomotion: Walk Anticipated Mode of Locomotion: Walk Walk 10 feet (QC): 6 Walk 50 ft with 2 Turns(QC): 6 Distance: 100' Gait Assistive Device: None Comments/Gait Description Patient ambulated about his room independently, no assistive device Balance Sitting Static: Normal Sitting Dynamic: Normal Standing Static: Normal Standing Dynamic: Normal Treatment BLE supine exercises x15 (AP, HS) Assessment/Needs Patient in bed post tx with nurse call, phone, tray, all needs met. Patient is independent with transfers and ambulation, will be discharged from PT at this time. Recommended to patient to have nurse disconnect him from his attachments several times a day so he can ambulate in his room. Rehab Potential: Good PT Plan Treatment/Plan Treatment Plan: Discontinue PT Treatment Duration: Feb 16, 2022 Frequency: Patient and/or Family Agrees t: Yes Safety Risks/Education Patient Education: Gait Training, Transfer Techniques, Correct Positioning, Safety Issues Teaching Recipient: Patient Teaching Methods: Demonstration, Discussion Response to Teaching: Reinforcement Needed Discharge Recommendations Plan DC Therapy Discharge Recommendati: Home & Family Time Time In: 1125 Time Out: 1137 DATE: Feb 16, 2022 Total Billed Treatment Time: 12 Total Billed Treatment 1 visit EVL 12' JAMAICA BATRES PT Feb 16, 2022 11:49
--- NOTE | 2022-02-16 12:35 | Progress Note - Urology ---
Progress Note-Urology Progress Notes/Assess & Plan Progress/Assessment & Plan VOIDING WELL EMPTIES WELL. URINE CLEAR. WILL SEE PRN Final Diagnosis GROSS HEMATURIA ENOC MULTANI MD Feb 16, 2022 12:35
--- NOTE | 2022-02-16 13:43 | Tele-ICU Progress Note ---
Subjective Date Seen by a Provider: Feb 16, 2022 Time Seen by a Provider: 09:55 Subjective/Events-last exam (Tele-ICU Physician , Progress Note ) Service provided via interactive audio and video telecommunications E-CARE system to a patient admitted to ICU bed in [facility]. Available chart/ vitals / labs / Images reviewed Video assessment done using teleICU camera, rest of exam as per RN Discussed with RN Events overnight : Afebrile hemodynamically stable Respiratory - 8 L I/O = NEG Drips: Pressors- no Consultants: Hospital course: (02/08) 76M Admitted for rapid afib, NSTEMI, CHF, COPD, DESIRAE (02/09) Renals improving, remains atrial flutter (02/10) Increased O2 need-received lasix. CTA chest: moderate pulmonary edema, small pleural effusions and diffuse body wall edema (02/13) hgb holding in 8's. clear yellow urine, (02/15) cystoscopy - NEG , - VT 20L 50% 02/16 - 8l O2 Patient is seen today due to persistent hypoxia and new A/P Acute hypoxic resp failure, supected VO and atelectasis , with AECOPD component --ON 8 L O2 TODAY -cont diuresis LASIX 40 QD - cont steroids and br-dilators - follow abg if incr WOB or incr somnolence NSTEMI, CAD s/p CABG - as per cards Afib flutter -Cardiology following - rate controlled - on Eliquis AECOPD with chronic hypoxic resp failure -on home oxygen 2.5 L - steroids po now - nebs Acute on chronic HFrEF - con diuresis, monitor lytes and renal functio -EF 40-45% Hematuria -Urology following, s/p cysto 02/15 - negative Lines : per , (Central Line Necessity Reviewed) Gonzalez: to be removed 02/15 - VOID OG: Nutrition: po Analgesia: Anxiety/ delirium VTE Prophylaxis: eliquis Stress Ulcer Prophylaxis: ppi Plans in collaboration with bedside consultants and IM MDs. Discussed with RN to reach out if any questions or concerns A total of 20 minutes of critical care time was devoted to this patient today, required to treat and/or prevent further deterioration of critical care condition ( as above ) . Sepsis Event Evaluation Height, Weight, BMI Height: '" Weight: lbs. oz. kg; 23.37 BMI Method:Stated Exam Exam Patient acknowledged, consented, and participated in this virtual visit which was conducted using real time audio/video Vital Signs Date Time Temp Pulse Resp B/P (MAP) Pulse Ox O2 Delivery O2 Flow Rate FiO2 02/16/22 13:00 92 02/16/22 12:00 36.0 02/16/22 12:00 95 28 115/94 (101) High Flow N/C 8.00 02/16/22 11:00 102 20 135/124 (128) 91 High Flow N/C 8.00 02/16/22 10:15 100 High Flow N/C 8.00 02/16/22 10:00 96 25 120/77 (91) 92 High Flow N/C 8.00 02/16/22 09:00 109 32 133/71 (91) High Flow N/C 8.00 02/16/22 08:00 96 High Flow N/C 8.00 02/16/22 08:00 94 10 136/87 (103) 94 High Flow N/C 8.00 02/16/22 08:00 36.1 02/16/22 07:00 87 16 130/83 (99) 94 High Flow N/C 8.00 02/16/22 07:00 90 02/16/22 06:00 87 13 114/84 (94) 97 High Flow N/C 8.00 02/16/22 05:00 91 14 122/80 (94) 96 High Flow N/C 8.00 02/16/22 04:00 90 12 116/76 (89) 98 High Flow N/C 8.00 02/16/22 03:49 97 High Flow N/C 8.00 02/16/22 03:49 36.8 85 13 116/71 (86) 97 High Flow N/C 8.00 02/16/22 03:12 97 High Flow N/C 6.00 02/16/22 02:00 83 12 125/82 (96) 96 High Flow N/C 8.00 02/16/22 01:59 92 110/70 02/16/22 01:00 90 13 113/78 (90) 99 High Flow N/C 8.00 02/16/22 01:00 90 02/16/22 00:00 92 17 110/70 (83) 99 High Flow N/C 8.00 02/15/22 23:40 96 High Flow N/C 8.00 02/15/22 23:38 36.6 87 21 114/56 (75) 97 High Flow N/C 8.00 02/15/22 22:00 96 19 114/68 (83) 97 High Flow N/C 8.00 02/15/22 21:22 94 High Flow N/C 8.00 02/15/22 21:00 125 22 123/80 (94) 94 High Flow N/C 6.00 02/15/22 20:00 37.0 02/15/22 20:00 102 22 124/63 (83) 95 High Flow N/C 6.00 02/15/22 19:18 97 High Flow N/C 6.00 02/15/22 19:06 98 High Flow N/C 6.00 02/15/22 19:00 109 02/15/22 19:00 109 20 115/88 (97) 99 High Flow N/C 6.00 02/15/22 18:50 96 High Flow N/C 6.00 02/15/22 18:00 99 22 122/68 (86) 95 Vapotherm 20.00 45.00 02/15/22 17:00 110 33 112/98 (103) 93 Vapotherm 20.00 45.00 02/15/22 16:00 94 Vapotherm 20.00 45 02/15/22 16:00 36.3 02/15/22 14:48 97 Vapotherm 20.00 40 02/15/22 14:00 102 22 126/92 (103) 94 Vapotherm 20.00 45.00 I & O 02/16/22 07:00 Intake Total 1415 ml Output Total 2225 ml Balance -810 ml Height & Weight Height: '" Weight: lbs. oz. kg; 23.37 BMI Method:Stated General Appearance: No Apparent Distress, Chronically ill HEENT: PERRL/EOMI, Pharynx Normal Neck: Normal Inspection, Supple Respiratory: Lungs Clear, Other (on Vapotherm) Cardiovascular: Regular Rate, Rhythm, No Murmur Capillary Refill: Less Than 3 Seconds Gastrointestinal: normal bowel sounds, non tender, soft Extremity: Non Tender, No Pedal Edema Neurologic/Psychiatric: Alert, Oriented x3 Skin: Normal Color, Warm/Dry Results Lab Laboratory Tests 02/15/22 04:30 02/15/22 06:37 02/16/22 06:30 Assessment/Plan Assessment/Plan 1 PARUL MONTGOMERY MD Feb 16, 2022 13:43
[2022-02-16 14:49] VITALS: BP 110/72
[2022-02-16] MEDS: TAMSULOSIN 0.4 MG (FLOMAX) CAP PO SCH (17:53)
--- NOTE | 2022-02-16 18:45 | Progress Note - Cardiology ---
Cardiology SOAP Progress Note Subjective: Gen malaise Shortness of breath with activity, mod No palp or cp or syncope No n/v/d Objective: I&O/Vital Signs 02/16/22 02/16/22 02/16/22 02/16/22 07:00 07:00 08:00 08:00 Temp 36.1 Pulse 90 87 94 Resp 16 10 B/P (MAP) 130/83 (99) 136/87 (103) Pulse Ox 94 94 O2 Delivery High Flow N/C High Flow N/C O2 Flow Rate 8.00 8.00 02/16/22 02/16/22 02/16/22 02/16/22 08:00 09:00 10:00 10:15 Pulse 109 96 Resp 32 25 B/P (MAP) 133/71 (91) 120/77 (91) Pulse Ox 96 92 100 O2 Delivery High Flow N/C High Flow N/C High Flow N/C High Flow N/C O2 Flow Rate 8.00 8.00 8.00 8.00 02/16/22 02/16/22 02/16/22 02/16/22 11:00 12:00 12:00 12:00 Temp 36.0 Pulse 102 95 Resp 20 28 B/P (MAP) 135/124 (128) 115/94 (101) Pulse Ox 91 95 O2 Delivery High Flow N/C High Flow N/C High Flow N/C O2 Flow Rate 8.00 8.00 8.00 02/16/22 02/16/22 02/16/22 02/16/22 13:00 13:00 14:00 14:48 Pulse 92 93 87 Resp 21 15 B/P (MAP) 117/68 (84) 110/72 (85) Pulse Ox 91 91 91 O2 Delivery High Flow N/C High Flow N/C High Flow N/C O2 Flow Rate 8.00 8.00 6.00 02/16/22 02/16/22 02/16/22 02/16/22 14:49 15:00 16:00 16:00 Temp 36.0 Pulse 87 86 91 Resp 16 18 B/P (MAP) 105/71 (82) 108/71 (83) Pulse Ox 91 94 88 95 O2 Delivery High Flow N/C High Flow N/C High Flow N/C O2 Flow Rate 8.00 8.00 8.00 02/16/22 02/16/22 02/16/22 16:22 17:00 18:00 Temp 37.1 Pulse 86 101 Resp 19 18 B/P (MAP) 101/87 (92) 116/72 (87) Pulse Ox 88 91 O2 Delivery High Flow N/C High Flow N/C O2 Flow Rate 8.00 8.00 02/16/22 00:00 Intake Total 1165 ml Output Total 1450 ml Balance -285 ml Constitutional: AAO x 3, well-developed, other (thin-appearing) Respiratory: No accessory muscle use, No respiratory distress; rhonchi (scattered), other (prolonged exp phase) Cardiovascular: irregularly irregular Gastrointestional: No tender; soft, audible bowel sounds Extremities: no lower extremity edema bilateral Neurologic/Psychiatric: other (moves all limbs equally) Skin: No rash on exposed areas, No ulcerations on exposed areas Results/Procedures: Labs Laboratory Tests 02/16/22 06:30: White Blood Count 10.7, Red Blood Count 4.89, Hemoglobin 15.4, Hematocrit 44, Mean Corpuscular Volume 90, Mean Corpuscular Hemoglobin 32, Mean Corpuscular Hemoglobin Concent 35, Red Cell Distribution Width 14.0, Platelet Count 293, Mean Platelet Volume 10.4, Immature Granulocyte % (Auto) 0, Neutrophils (%) (Auto) 84H, Lymphocytes (%) (Auto) 7L, Monocytes (%) (Auto) 9, Eosinophils (%) (Auto) 0, Basophils (%) (Auto) 0, Neutrophils # (Auto) 9.0H, Lymphocytes # (Auto) 0.7L, Monocytes # (Auto) 1.0, Eosinophils # (Auto) 0.0, Basophils # (Auto) 0.0, Immature Granulocyte # (Auto) 0.0, Neutrophils % (Manual) 85, Lymphocytes % (Manual) 5, Monocytes % (Manual) 8, Eosinophils % (Manual) 1, Reactive Lymphocytes 1, Blood Morphology Comment NORMAL, Sodium Level 136, Potassium Level 4.2, Chloride Level 94L, Carbon Dioxide Level 32, Anion Gap 10, Blood Urea Nitrogen 41H, Creatinine 1.18, Estimat Glomerular Filtration Rate 65, BUN/Creatinine Ratio 35, Glucose Level 106H, Calcium Level 9.6, Digoxin Level 0.66L Microbiology 02/08/22 MRSA Screen - Final, Complete MRSA not isolated Laboratory Tests 02/15/22 04:30 02/15/22 06:37 02/16/22 06:30 A/P: Assessment: Newly dx atrial flutter w/ RVR - on EKG of 02-08-22 at [facility] ED - rate controlled - on BB and Digoxin - OAC with Eliquis Type 2 NE - RVR in presence of underlying CAD Acute renal insuff (DESIRAE) due to volume depletion - hydration improved azotemia but led to volume overload - now on diuretics ICM - Echocardiogram of 05-21-[address] Cadet showed LVEF 40-45%. Grade 1 diastolic dysfunction. Mild AoR. PASP 15-20 mmHg - Echo on 02/09/22: LVEF 40-45%, mod biatrial enlargement, PASP 40-45 mmHg Hematuria - resolved - management per Medical/Urology services Coronary artery disease - history of 4 vessel CABG in 1996 in [place] - Cardiac catheterization [place] [address] Cadet showing patent vein graft to the circumflex artery and vein graft to the right coronary artery, severe stenosis in the LAD, had 2 stents in the proximal LAD, underwent balloon angioplasty for in-stent restenosis, has severe stenosis in the diagonal branch that was not intervened on. - Cardiac catheterization on May 22, [address] Cadet showing moderate stenosis in the stent of the LAD and distal left main, moderate diffuse disease, diagonal branch had significatn disase but was a small artery, occluded vein graft to the circumflex artery and had moderately severe ostial stenosis of the vein graft to the right coronary artery to which balloon angioplasty was undertaken with good results H/o hypertension Hyperlipidemia Tobaccoism - 1/2 PPD of cigs - cessation advised DM 2 Ac exac of COPD - oxygen dependent Plan: * Eliquis for stroke prophylaxis * Continue ASA for CAD * Added spironolactone to furosemide * Added SGLT-2 inhib * Monitor labs, including dig level * Increase ambulation * Med svce managing COPD and ch resp failure Clinical Quality Measures AMI/AHF: ASA po Prior to arrival: Yes MONICA CRUZ MD FACP FAC CCDS Feb 16, 2022 18:44
[2022-02-16] MEDS: ROSUVASTATIN 10 MG (CRESTOR) TABLET PO SCH (20:09)
[2022-02-16] MEDS: RT-ALBUTEROL HFA 8.5 GM INHALER IH PRN (20:42)
[2022-02-17 03:54] LABS: BASOPHILS % (AUTO) 0 % (0-10); EOSINOPHILS # (AUTO) 0.1 10^3/uL (0.0-0.3); EOSINOPHILS % (AUTO) 1 % (0-10); HEMATOCRIT 45 % (40-54); HEMOGLOBIN 15.3 g/dL (13.3-17.7); LYMPHOCYTES # (AUTO) 0.8 10^3/uL (1.0-4.0); LYMPHOCYTES % (AUTO) 7 % (12-44); MEAN CORPUSCULAR HEMOGLOBIN 31 pg (25-34); MEAN CORPUSCULAR HGB CONC 34 g/dL (32-36); MEAN CORPUSCULAR VOLUME 91 fL (80-99); MEAN PLATELET VOLUME 10.7 fL (9.0-12.2); MONOCYTES % (AUTO) 9 % (0-12); NEUTROPHILS # (AUTO) 9.5 10^3/uL (1.8-7.8); NEUTROPHILS % (AUTO) 83 % (42-75); PLATELET COUNT 306 10^3/uL (130-400); WHITE BLOOD COUNT 11.5 10^3/uL (4.3-11.0)
[2022-02-17 04:44] LABS: POTASSIUM 4.2 MMOL/L (3.6-5.0)
[2022-02-17 04:45] LABS: CALCIUM 9.3 MG/DL (8.5-10.1)
[2022-02-17 04:50] LABS: CREATININE SERUM 1.38 MG/DL (0.60-1.30)
[2022-02-17] MEDS: MAGNESIUM 1 GM/100 ML IVPB 100 ML IV SCH ×3 (05:28→06:32)
[2022-02-17] MEDS: POTASSIUM CL 10MEQ/50ML IVPB 50 ML IV SCH (05:28)
[2022-02-17] MEDS: KCL 20 MEQ TAB (K-DUR) PO SCH (05:28)
--- NOTE | 2022-02-17 07:43 | Cardiology Progress Note ---
Subjective Date Seen by Provider: Feb 17, 2022 Time Seen by Provider: 07:38 Subjective/Events-last exam Patient is laying down in bed, feeling better. No new complaint. No chest pain. Review of Systems General: No Chills, No Night Sweats, No Fatigue, No Malaise, No Appetite, No Other HEENT: No Head Aches, No Visual Changes, No Eye Pain, No Ear Pain, No Dysphasia, No Sinus Congestion, No Post Nasal Drip, No Sore Throat, No Other Pulmonary: No Dyspnea, No Cough, No Pleuritic Chest Pain, No Other Cardiovascular: No: Chest Pain, Palpitations, Orthopnea, Paroxysmal Noc. Dyspnea, Edema, Lt Headedness, Other Objective-Cardiology Exam Last Set of Vital Signs Vital Signs 02/15/22 02/16/22 02/17/22 02/17/22 16:00 20:47 06:00 07:22 Temp 36.6 Pulse 75 Resp 14 B/P (MAP) 101/61 (74) Pulse Ox 96 O2 Delivery High Flow N/C O2 Flow Rate 8.00 FiO2 45 I&O Intake and Output 02/17/22 00:00 Intake Total 1690 ml Output Total 2525 ml Balance -835 ml Intake Oral 1690 ml Output Urine Total 2525 ml # Voids 1 General: Alert, Oriented X3, Cooperative HEENT: Atraumatic, PERRLA Neck: Supple, No JVD, No Thyromegaly Lungs: Clear to Auscultation, Normal Air Movement Heart: Normal S1, Normal S2, No Murmurs, Other (Atrial fibrillation) Abdomen: Normal Bowel Sounds, Soft, No Tenderness, No Hepatosplenomegaly, No Masses Extremities: No Clubbing, No Cyanosis, No Edema, Normal Pulses, No Tenderness/S welling Skin: No Rashes, No Breakdown, No Significant Lesion Neuro: Normal Gait, Normal Speech, Strength at 5/5 X4 Ext, Normal Tone, Sensation Intact Psych/Mental Status: Mental Status NL, Mood NL Results Lab Laboratory Tests 02/17/22 03:31 A/P-Cardiology Admission Diagnosis Atrial fibrillation Coronary artery disease Type II myocardial infarction Hypertension Assessment/Plan Coarse atrial fibrillation with rapid ventricular response Heart rate is controlled on beta-blockers and digoxin Will consider MARK with electrical cardioversion in the morning. [id number] score 4, maintained on Eliquis started on this admission Coronary artery disease, history of CABG done in 1996 in [place]. Cardiac catheterization was done in 2006 showing patent vein graft to the circumflex artery and vein graft to the right coronary artery, severe stenosis in the LAD, had 2 stents in the proximal LAD, underwent balloon angioplasty for in-stent restenosis, has severe stenosis in the diagonal branch that was not intervened on. - Cardiac catheterization on May 22, 2019 showing moderate stenosis in the stent of the LAD and distal left main, moderate diffuse disease, diagonal branch had significatn disase but was a small artery, occluded vein graft to the circumflex artery and had moderately severe ostial stenosis of the vein graft to the right coronary artery to which balloon angioplasty was undertaken with good results Type II myocardial infarction, mild elevation in troponin probably secondary to tachycardia. Acute on chronic renal insufficiency, Slight deterioration in renal function, continue to monitor closely Diabetes mellitus, followed and managed by primary care physician Dilated cardiomyopathy, last echocardiogram was done on February 09, 2022 with ejection fraction 40 to 45%, biatrial enlargement, PA pressure 40 to 45 mmHg Hematuria. Improved Hypertension, monitor blood pressure Hyperlipidemia, monitor lipids Diabetes mellitus, followed and managed by primary care physician Tobaccoism, educated on smoking cessation Acute exacerbation of COPD, oxygen dependent. SALLY GYU MD Feb 17, 2022 07:42
[2022-02-17] MEDS: ASPIRIN 81 MG CHEW (CHILDREN'S ASA) PO SCH (08:15)
[2022-02-17] MEDS: HYDROcodone/APAP 5 MG/325 MG (LORTAB) TAB PO PRN ×2 (08:16→20:52)
[2022-02-17] MEDS: DOCUSATE SODIUM 100 MG (COLACE) CAP PO SCH ×2 (08:16→20:46)
[2022-02-17] MEDS: SENNOSIDES 8.6 MG (SENOKOT) TAB PO SCH ×2 (08:16→20:46)
[2022-02-17] MEDS: meTOproloL SUCCINATE 50 MG (TOPROL XL) TAB PO SCH (08:16)
[2022-02-17] MEDS: APIXABAN 5 MG (ELIQUIS) TABLET PO SCH ×2 (08:16→20:46)
[2022-02-17] MEDS: PANTOPRAZOLE 40 MG (PROTONIX) TAB PO SCH (08:16)
[2022-02-17] MEDS: FUROSEMIDE 40 MG (LASIX) TAB PO SCH (08:16)
[2022-02-17] MEDS: DIGOXIN 0.125 MG (LANOXIN) TAB PO SCH (08:16)
[2022-02-17] MEDS: SPIRONOLACTONE 25 MG (ALDACTONE) TAB PO SCH (08:16)
[2022-02-17] MEDS: EMPAGLIFLOZIN 10 MG TABLET (JARDIANCE) PO SCH (08:16)
--- NOTE | 2022-02-17 09:25 | Progress Note - Hospitalist ---
Subjective HPI/CC On Admission Date Seen by Provider: Feb 16, 2022 Bria Crowder is a 76 year old male with PMH HTN, HLD, CAD s/p CABG and coronary stenting, HFrEF, COPD on home oxygen 2.5 L, who presented with chest tightness. He denies radiation to the shoulder, arm, neck, and jaw. He reports palpitations. He was also very short of breath especially with exertion. He was diaphoretic. He denies nausea and vomiting. He has lower extremity swelling whic h he says has been there for years. He smokes cigars daily. He does not drink alcohol. Subjective/Events-last exam LATE ENTRY NOTE: Pt reports doing well. No complaints. Off Vapotherm and breathing better. Objective Exam Vital Signs Vital Signs Date Time Temp Pulse Resp B/P (MAP) Pulse Ox O2 Delivery O2 Flow Rate FiO2 02/17/22 08:20 High Flow N/C 8.00 02/17/22 08:00 85 19 88 02/16/22 20:47 36.6 02/15/22 16:00 45 Capillary Refill : Less Than 3 Seconds General Appearance: No Apparent Distress Respiratory: Lungs Clear, Other (on 8lpm HFNC) Cardiovascular: Regular Rate, Rhythm, No Murmur Gastrointestinal: Normal Bowel Sounds, Non Tender, Soft Neurologic/Psychiatric: Alert, Oriented x3 Results/Procedures Lab Laboratory Tests 02/17/22 03:31 Patient resulted labs reviewed. Imaging: Reviewed Imaging Report Assessment/Plan Assessment and Plan Assess & Plan/Chief Complaint Acute on chronic HFrEF Acute on chronic respiratory failure with hypoxia Borderline EF 40-45% Down to 8lpm HFNC Continue Lasix -700mL Atrial flutter with rapid ventricular response Cardiology following On metoprolol now Eliquis NSTEMI CAD s/p CABG Troponin elevated, presumed type II [place] due to RVR Continue ASA and Plavix Hematuria Possibly traumatic Urology following- cysto done COPD Chronic respiratory failure with hypoxia Supplemental oxygen as needed, 2.5 L baseline requirement Hypomagnesemia Monitor and replace as needed HTN HLD DVT prophylaxis: already receiving therapeutic anticoagulation Critical Care Critically Ill Patient Clinical Quality Measures AMI/AHF: ASA po Prior to arrival: Yes RTOY CHERRY MD Feb 17, 2022 09:25
--- NOTE | 2022-02-17 09:32 | Progress Note - Hospitalist ---
Subjective HPI/CC On Admission Date Seen by Provider: Feb 17, 2022 Bria Crowder is a 76 year old male with PMH HTN, HLD, CAD s/p CABG and coronary stenting, HFrEF, COPD on home oxygen 2.5 L, who presented with chest tightness. He denies radiation to the shoulder, arm, neck, and jaw. He reports palpitations. He was also very short of breath especially with exertion. He was diaphoretic. He denies nausea and vomiting. He has lower extremity swelling whic h he says has been there for years. He smokes cigars daily. He does not drink alcohol. Subjective/Events-last exam Pt reports doing better today. No complaints. Discussed with Dr Cadet and planning for cardioversion tomorrow. Objective Exam Vital Signs Vital Signs Date Time Temp Pulse Resp B/P (MAP) Pulse Ox O2 Delivery O2 Flow Rate FiO2 02/17/22 08:20 High Flow N/C 8.00 02/17/22 08:00 85 19 88 02/16/22 20:47 36.6 02/15/22 16:00 45 Capillary Refill : Less Than 3 Seconds General Appearance: Chronically ill, Thin Respiratory: Lungs Clear, No Respiratory Distress Cardiovascular: No Murmur, Irregularly Irregular Neurologic/Psychiatric: Alert, Oriented x3 Results/Procedures Lab Laboratory Tests 02/17/22 03:31 Patient resulted labs reviewed. Imaging: Reviewed Imaging Report Assessment/Plan Assessment and Plan Assess & Plan/Chief Complaint Acute on chronic HFrEF Acute on chronic respiratory failure with hypoxia COPD with baseline 2.5lpm need Borderline EF 40-45% Down to 6lpm HFNC Continue Lasix -835mL PT/OT Atrial flutter with rapid ventricular response Cardiology following On metoprolol now Eliquis NSTEMI CAD s/p CABG Troponin elevated, presumed type II [place] due to RVR Continue ASA and Plavix Hematuria Possibly traumatic Urology following- cysto done 02/15 Hypomagnesemia Monitor and replace as needed HTN HLD No acute needs DVT prophylaxis: already receiving therapeutic anticoagulation Critical Care Critically Ill Patient Clinical Quality Measures AMI/AHF: ASA po Prior to arrival: Yes TROY CHERRY MD Feb 17, 2022 09:32
[2022-02-17] MEDS: RT-ALBUTEROL/IPRATROPIUM 3 ML (DUONEB) VIAL INH SCH ×3 (09:57→18:59)
[2022-02-17] MEDS: RT--FLUTICASONE/SALMETEROL 113-14 (AIRDUO RespiCLICK) IH SCH ×2 (09:57→18:59)
--- NOTE | 2022-02-17 12:03 | Tele-ICU Progress Note ---
Subjective Date Seen by a Provider: Feb 17, 2022 Time Seen by a Provider: 12:03 Subjective/Events-last exam (Tele-ICU Physician , Progress Note ) Service provided via interactive audio and video telecommunications E-CARE system to a patient admitted to ICU bed in [facility]. Available chart/ vitals / labs / Images reviewed Video assessment done using teleICU camera, rest of exam as per RN Discussed with RN Events overnight : Afebrile hemodynamically stable Respiratory - 8 L I/O = NEG Drips: Pressors- no Consultants: Hospital course: (02/08) 76M Admitted for rapid afib, NSTEMI, CHF, COPD, DESIRAE (02/09) Renals improving, remains atrial flutter (02/10) Increased O2 need-received lasix. CTA chest: moderate pulmonary edema, small pleural effusions and diffuse body wall edema (02/13) hgb holding in 8's. clear yellow urine, (02/15) cystoscopy - NEG , - VT 20L 50% 02/16 - 8l O2 02/17 - still on 8L , rising C5r with diuresis Patient is seen today due to persistent hypoxia A/P Acute hypoxic resp failure, supected VO and atelectasis , with AECOPD component --ON 8 L O2 TODAY -cont diuresis LASIX 40 QD-02/17 - still on 8L , rising Cr with diuresis - monitor carefully - cont steroids and br-dilators - follow abg if incr WOB or incr somnolence NSTEMI, CAD s/p CABG - as per cards Afib flutter -Cardiology following - rate controlled - on Eliquis - cardioversion tomorrow AECOPD with chronic hypoxic resp failure -on home oxygen 2.5 L- NOW 8 L - steroids STOPPED - nebs Acute on chronic HFrEF - con diuresis, monitor lytes and renal functio -EF 40-45% Hematuria -Urology following, s/p cysto 02/15 - negative Lines : per , (Central Line Necessity Reviewed) Gonzalez: to be removed 02/15 - VOID OG: Nutrition: po Analgesia: Anxiety/ delirium VTE Prophylaxis: eliquis Stress Ulcer Prophylaxis: ppi Plans in collaboration with bedside consultants and IM MDs. Discussed with RN to reach out if any questions or concerns A total of 20 minutes of critical care time was devoted to this patient today, required to treat and/or prevent further deterioration of critical care condition ( as above ) . Sepsis Event Evaluation Height, Weight, BMI Height: '" Weight: lbs. oz. kg; 23.41 BMI Method:Stated Exam Exam Patient acknowledged, consented, and participated in this virtual visit which was conducted using real time audio/video Vital Signs Date Time Temp Pulse Resp B/P (MAP) Pulse Ox O2 Delivery O2 Flow Rate FiO2 02/17/22 10:00 75 13 106/73 (84) 99 High Flow N/C 6.00 02/17/22 09:57 97 High Flow N/C 8.00 02/17/22 09:00 71 18 109/68 (82) 90 High Flow N/C 8.00 02/17/22 08:20 High Flow N/C 8.00 02/17/22 08:15 High Flow N/C 6.00 02/17/22 08:00 85 19 127/76 (93) 88 High Flow N/C 8.00 02/17/22 08:00 96 High Flow N/C 8.00 02/17/22 07:22 75 02/17/22 07:00 84 13 115/79 (91) 95 High Flow N/C 8.00 02/17/22 06:00 93 14 101/61 (74) 96 High Flow N/C 8.00 02/17/22 05:00 77 21 97/57 (70) 92 High Flow N/C 8.00 02/17/22 04:00 75 15 102/64 (77) 91 High Flow N/C 8.00 02/17/22 03:35 92 High Flow N/C 6.00 02/17/22 03:00 81 15 97/64 (75) 92 High Flow N/C 8.00 02/17/22 02:00 77 13 97/56 (70) 93 High Flow N/C 8.00 02/17/22 01:00 80 19 86/59 (68) 97 High Flow N/C 8.00 02/17/22 01:00 87 02/17/22 00:00 83 31 92/62 (72) 94 High Flow N/C 8.00 02/16/22 23:59 95 High Flow N/C 6.00 02/16/22 23:00 89 20 96/62 (73) 93 High Flow N/C 8.00 02/16/22 22:00 84 32 116/73 (87) 94 High Flow N/C 8.00 02/16/22 21:00 86 23 111/69 (83) 94 High Flow N/C 8.00 02/16/22 20:47 36.6 02/16/22 20:42 95 High Flow N/C 6.00 02/16/22 20:00 85 17 106/66 (79) 94 High Flow N/C 8.00 02/16/22 19:19 97 High Flow N/C 6.00 02/16/22 19:00 89 18 112/69 (83) 95 High Flow N/C 8.00 02/16/22 19:00 92 02/16/22 18:00 101 18 116/72 (87) 91 High Flow N/C 8.00 02/16/22 17:00 86 19 101/87 (92) 88 High Flow N/C 8.00 02/16/22 16:22 37.1 02/16/22 16:00 95 High Flow N/C 8.00 02/16/22 16:00 91 18 108/71 (83) 88 High Flow N/C 8.00 02/16/22 15:00 86 16 105/71 (82) 94 High Flow N/C 8.00 02/16/22 14:49 36.0 87 91 02/16/22 14:48 91 High Flow N/C 6.00 02/16/22 14:00 87 15 110/72 (85) 91 High Flow N/C 8.00 02/16/22 13:00 93 21 117/68 (84) 91 High Flow N/C 8.00 02/16/22 13:00 92 I & O 02/17/22 07:00 Intake Total 1810 ml Output Total 2325 ml Balance -515 ml Height & Weight Height: '" Weight: lbs. oz. kg; 23.41 BMI Method:Stated General Appearance: Chronically ill, Thin HEENT: PERRL/EOMI, Pharynx Normal Neck: Normal Inspection, Supple Respiratory: Lungs Clear, No Respiratory Distress Cardiovascular: No Murmur, Irregularly Irregular Capillary Refill: Less Than 3 Seconds Gastrointestinal: normal bowel sounds, non tender, soft Extremity: Non Tender, No Pedal Edema Neurologic/Psychiatric: Alert, Oriented x3 Skin: Normal Color, Warm/Dry Results Lab Laboratory Tests 02/16/22 06:30 02/17/22 03:31 Assessment/Plan Assessment/Plan 1 PARUL MONTGOMERY MD Feb 17, 2022 12:03
[2022-02-17 13:06] VITALS: BP 107/66
[2022-02-17] MEDS: TAMSULOSIN 0.4 MG (FLOMAX) CAP PO SCH (18:06)
[2022-02-17] MEDS: ROSUVASTATIN 10 MG (CRESTOR) TABLET PO SCH (20:46)
[2022-02-18] MEDS: RT-ALBUTEROL/IPRATROPIUM 3 ML (DUONEB) VIAL INH SCH ×4 (03:11→21:49)
[2022-02-18 04:46] LABS: BASOPHILS # (AUTO) 0.1 10^3/uL (0.0-0.1); BASOPHILS % (AUTO) 0 % (0-10); EOSINOPHILS # (AUTO) 0.2 10^3/uL (0.0-0.3); EOSINOPHILS % (AUTO) 2 % (0-10); HEMATOCRIT 46 % (40-54); HEMOGLOBIN 15.6 g/dL (13.3-17.7); LYMPHOCYTES # (AUTO) 0.8 10^3/uL (1.0-4.0); LYMPHOCYTES % (AUTO) 7 % (12-44); MEAN CORPUSCULAR HEMOGLOBIN 31 pg (25-34); MEAN CORPUSCULAR HGB CONC 34 g/dL (32-36); MEAN CORPUSCULAR VOLUME 90 fL (80-99); MEAN PLATELET VOLUME 10.5 fL (9.0-12.2); MONOCYTES # (AUTO) 0.9 10^3/uL (0.0-1.0); MONOCYTES % (AUTO) 7 % (0-12); NEUTROPHILS # (AUTO) 10.2 10^3/uL (1.8-7.8); NEUTROPHILS % (AUTO) 84 % (42-75); PLATELET COUNT 307 10^3/uL (130-400); WHITE BLOOD COUNT 12.1 10^3/uL (4.3-11.0)
[2022-02-18 05:02] LABS: POTASSIUM 4.6 MMOL/L (3.6-5.0)
[2022-02-18 05:03] LABS: CALCIUM 9.3 MG/DL (8.5-10.1)
[2022-02-18 05:07] LABS: CREATININE SERUM 1.37 MG/DL (0.60-1.30)
[2022-02-18 05:10] LABS: MAGNESIUM 1.8 MG/DL (1.6-2.4)
[2022-02-18] MEDS: POTASSIUM CL 10MEQ/50ML IVPB 50 ML IV SCH (06:25)
[2022-02-18] MEDS: MAGNESIUM 1 GM/100 ML IVPB 100 ML IV SCH (06:25)
[2022-02-18] MEDS: KCL 20 MEQ TAB (K-DUR) PO SCH (06:25)
[2022-02-18] MEDS: RT--FLUTICASONE/SALMETEROL 113-14 (AIRDUO RespiCLICK) IH SCH ×2 (07:18→21:49)
[2022-02-18] MEDS ORDERED: MIDAZOLAM 2 MG/2 ML (VERSED) VIAL ONE (08:34)
[2022-02-18] MEDS ORDERED: proPOfol 200 MG/20 ML (DIPRIVAN) VIAL IV ONE ×2 (08:35→09:33)
[2022-02-18] MEDS ORDERED: NS IV 1000 ML 1,000 ML ONE (08:35)
[2022-02-18] MEDS ORDERED: LIDOCAINE 2% VISCOUS 15 ML UDC ONE (08:40)
[2022-02-18] MEDS ORDERED: KETAMINE HCL 100 MG/ML 5 ML VIAL ONE (08:52)
--- NOTE | 2022-02-18 09:06 | Progress Note - Hospitalist ---
Subjective HPI/CC On Admission Date Seen by Provider: Feb 18, 2022 Bria Crowder is a 76 year old male with PMH HTN, HLD, CAD s/p CABG and coronary stenting, HFrEF, COPD on home oxygen 2.5 L, who presented with chest tightness. He denies radiation to the shoulder, arm, neck, and jaw. He reports palpitations. He was also very short of breath especially with exertion. He was diaphoretic. He denies nausea and vomiting. He has lower extremity swelling whic h he says has been there for years. He smokes cigars daily. He does not drink alcohol. Subjective/Events-last exam Pt reports doing well. States he thinks he's getting up to "the line" where he may be able to go home soon. Objective Exam Vital Signs Vital Signs Date Time Temp Pulse Resp B/P (MAP) Pulse Ox O2 Delivery O2 Flow Rate FiO2 02/18/22 08:00 87 21 113/82 (92) 91 High Flow N/C 8.00 02/18/22 07:30 36.3 02/17/22 13:06 52 Capillary Refill : Less Than 3 Seconds General Appearance: No Apparent Distress, Chronically ill Respiratory: No Respiratory Distress, Decreased Breath Sounds; No Wheezing Cardiovascular: No Murmur, Irregularly Irregular Gastrointestinal: Normal Bowel Sounds, Soft Neurologic/Psychiatric: Alert, Oriented x3 Results/Procedures Lab Laboratory Tests 02/18/22 04:07 Patient resulted labs reviewed. Imaging: Reviewed Imaging Report Assessment/Plan Assessment and Plan Assess & Plan/Chief Complaint Acute on chronic HFrEF Acute on chronic respiratory failure with hypoxia COPD with baseline 2.5lpm need Borderline EF 40-45% Down to 6lpm HFNC still Continue Lasix Essentialy fluid neutral yesterday (+145mL) PT/OT Atrial flutter with rapid ventricular response Cardiology following On metoprolol now Eliquis Potential cardioversion today NSTEMI CAD s/p CABG Troponin elevated, presumed type II [place] due to RVR Continue ASA and Plavix Hematuria Possibly traumatic Urology following- cysto done 02/15 Hypomagnesemia Monitor and replace as needed HTN HLD No acute needs DVT prophylaxis: already receiving therapeutic anticoagulation Critical Care Critically Ill Patient Clinical Quality Measures AMI/AHF: ASA po Prior to arrival: Yes TROY CHERRY MD Feb 18, 2022 09:06
--- NOTE | 2022-02-18 09:27 | Tele-ICU Progress Note ---
Subjective Date Seen by a Provider: Feb 18, 2022 Time Seen by a Provider: 09:27 Subjective/Events-last exam (Tele-ICU Physician , Progress Note ) Service provided via interactive audio and video telecommunications E-CARE system to a patient admitted to ICU bed in [facility]. Available chart/ vitals / labs / Images reviewed Video assessment done using teleICU camera, rest of exam as per RN Discussed with RN Events overnight : Afebrile hemodynamically stable Respiratory - 6L I/O = even Drips: Pressors- no Consultants: Hospital course: (02/08) 76M Admitted for rapid afib, NSTEMI, CHF, COPD, DESIRAE (02/09) Renals improving, remains atrial flutter (02/10) Increased O2 need-received lasix. CTA chest: moderate pulmonary edema, small pleural effusions and diffuse body wall edema (02/13) hgb holding in 8's. clear yellow urine, (02/15) cystoscopy - NEG , - VT 20L 50% 02/16 - 8l O2 02/17 - still on 8L , rising C5r with diuresis 02/18 - 6L o2 Patient is seen today due to persistent hypoxia A/P Acute hypoxic resp failure, supected VO and atelectasis , with AECOPD component --ON 8 L O2 TODAY -cont diuresis LASIX 40 QD-02/17 - still on 8L , rising Cr with diuresis - monitor carefully , Cr stable - cbr-dilators NSTEMI, CAD s/p CABG - as per cards Afib flutter -Cardiology following - rate controlled - on Eliquis - cardioversion today planned AECOPD with chronic hypoxic resp failure -on home oxygen 2.5 L- NOW 8 L - steroids STOPPED , ? might need longer course if still wheezing - nebs Acute on chronic HFrEF - con diuresis, monitor lytes and renal function -EF 40-45% Hematuria -Urology following, s/p cysto 02/15 - negative Lines : per , (Central Line Necessity Reviewed) Gonzalez: to be removed 02/15 - VOID OG: Nutrition: po Analgesia: Anxiety/ delirium VTE Prophylaxis: eliquis Stress Ulcer Prophylaxis: ppi Plans in collaboration with bedside consultants and IM MDs. Discussed with RN to reach out if any questions or concerns A total of 20 minutes of critical care time was devoted to this patient today, required to treat and/or prevent further deterioration of critical care condition ( as above ) . Sepsis Event Evaluation Height, Weight, BMI Height: '" Weight: lbs. oz. kg; 23.41 BMI Method:Stated Exam Exam Patient acknowledged, consented, and participated in this virtual visit which was conducted using real time audio/video Vital Signs Date Time Temp Pulse Resp B/P (MAP) Pulse Ox O2 Delivery O2 Flow Rate FiO2 02/18/22 08:00 87 21 113/82 (92) 91 High Flow N/C 8.00 02/18/22 07:30 36.3 02/18/22 07:21 92 High Flow N/C 6.00 02/18/22 07:00 73 13 97/64 (75) 97 High Flow N/C 8.00 02/18/22 07:00 84 02/18/22 06:00 87 14 113/86 (95) 94 02/18/22 06:00 66 14 113/86 (95) 96 High Flow N/C 8.00 02/18/22 05:00 71 16 115/80 (92) 96 High Flow N/C 8.00 02/18/22 04:00 36.0 83 14 96/62 (73) 97 High Flow N/C 8.00 02/18/22 04:00 High Flow N/C 8.00 02/18/22 03:11 95 High Flow N/C 6.00 02/18/22 03:00 75 14 89/64 (72) 97 High Flow N/C 8.00 02/18/22 02:00 73 16 99/66 (77) 94 High Flow N/C 8.00 02/18/22 01:00 73 02/18/22 01:00 69 02/18/22 01:00 73 20 96/58 (71) 91 High Flow N/C 8.00 02/18/22 00:43 36.4 02/18/22 00:00 72 16 91/58 (69) 94 High Flow N/C 8.00 02/17/22 23:30 94 High Flow N/C 6.00 02/17/22 23:07 High Flow N/C 8.00 02/17/22 23:00 62 16 89/66 (74) 97 High Flow N/C 8.00 02/17/22 22:00 77 16 94/59 (71) 93 High Flow N/C 8.00 02/17/22 21:00 74 16 102/59 (73) 92 High Flow N/C 8.00 02/17/22 20:00 36.8 02/17/22 20:00 71 16 98/60 (73) 93 High Flow N/C 8.00 02/17/22 19:50 High Flow N/C 8.00 02/17/22 19:00 80 22 116/72 (87) 92 High Flow N/C 8.00 02/17/22 19:00 78 02/17/22 18:59 92 High Flow N/C 6.00 02/17/22 18:45 79 33 109/80 (90) 94 High Flow N/C 6.00 02/17/22 17:00 76 17 92/62 (72) 92 High Flow N/C 6.00 02/17/22 16:00 36.7 02/17/22 16:00 71 16 87/62 (70) 92 High Flow N/C 6.00 02/17/22 16:00 94 High Flow N/C 8.00 02/17/22 15:06 96 High Flow N/C 6.00 02/17/22 15:00 71 18 96/65 (75) 97 High Flow N/C 6.00 02/17/22 14:00 71 21 85/64 (71) 93 High Flow N/C 6.00 02/17/22 13:06 78 92 52 02/17/22 13:00 64 16 90/64 (73) 92 High Flow N/C 6.00 02/17/22 12:20 78 02/17/22 12:00 78 16 107/66 (80) 92 High Flow N/C 6.00 02/17/22 12:00 94 High Flow N/C 8.00 02/17/22 12:00 36.7 02/17/22 11:00 69 21 99/67 (78) 85 High Flow N/C 6.00 02/17/22 10:00 75 13 106/73 (84) 99 High Flow N/C 6.00 02/17/22 09:57 97 High Flow N/C 8.00 I & O 02/18/22 07:00 Intake Total 2000 ml Output Total 2175 ml Balance -175 ml Height & Weight Height: '" Weight: lbs. oz. kg; 23.41 BMI Method:Stated General Appearance: No Apparent Distress, Chronically ill HEENT: PERRL/EOMI, Pharynx Normal Neck: Normal Inspection, Supple Respiratory: No Respiratory Distress, Decreased Breath Sounds; No Wheezing Cardiovascular: No Murmur, Irregularly Irregular Capillary Refill: Less Than 3 Seconds Gastrointestinal: normal bowel sounds, non tender, soft Extremity: Non Tender, No Pedal Edema Neurologic/Psychiatric: Alert, Oriented x3 Skin: Normal Color, Warm/Dry Results Lab Laboratory Tests 02/17/22 03:31 02/18/22 04:07 Assessment/Plan Assessment/Plan 1 PARUL MONTGOMERY MD Feb 18, 2022 09:27
[2022-02-18] MEDS ORDERED: PROPOFOL INJECTION 0 ML IV ONE (09:33)
--- NOTE | 2022-02-18 09:35 | Progress Note - Cardiology ---
Cardiology SOAP Progress Note Subjective: Gen weakness and malaise No cp or palp or syncope Shortness of breath with activity No n/v/d Objective: I&O/Vital Signs 02/17/22 02/17/22 02/17/22 02/17/22 22:00 23:00 23:07 23:30 Pulse 77 62 Resp 16 16 B/P (MAP) 94/59 (71) 89/66 (74) Pulse Ox 93 97 94 O2 Delivery High Flow N/C High Flow N/C High Flow N/C High Flow N/C O2 Flow Rate 8.00 8.00 8.00 6.00 02/18/22 02/18/22 02/18/22 02/18/22 00:00 00:43 01:00 01:00 Temp 36.4 Pulse 72 73 69 Resp 16 20 B/P (MAP) 91/58 (69) 96/58 (71) Pulse Ox 94 91 O2 Delivery High Flow N/C High Flow N/C O2 Flow Rate 8.00 8.00 02/18/22 02/18/22 02/18/22 02/18/22 01:00 02:00 03:00 03:11 Pulse 73 73 75 Resp 16 14 B/P (MAP) 99/66 (77) 89/64 (72) Pulse Ox 94 97 95 O2 Delivery High Flow N/C High Flow N/C High Flow N/C O2 Flow Rate 8.00 8.00 6.00 02/18/22 02/18/22 02/18/22 02/18/22 04:00 04:00 05:00 06:00 Temp 36.0 Pulse 83 71 66 Resp 14 16 14 B/P (MAP) 96/62 (73) 115/80 (92) 113/86 (95) Pulse Ox 97 96 96 O2 Delivery High Flow N/C High Flow N/C High Flow N/C High Flow N/C O2 Flow Rate 8.00 8.00 8.00 8.00 02/18/22 02/18/22 02/18/22 02/18/22 06:00 07:00 07:00 07:21 Pulse 87 84 73 Resp 14 13 B/P (MAP) 113/86 (95) 97/64 (75) Pulse Ox 94 97 92 O2 Delivery High Flow N/C High Flow N/C O2 Flow Rate 8.00 6.00 02/18/22 02/18/22 07:30 08:00 Temp 36.3 Pulse 87 Resp 21 B/P (MAP) 113/82 (92) Pulse Ox 91 O2 Delivery High Flow N/C O2 Flow Rate 8.00 02/18/22 00:00 Intake Total 1400 ml Output Total 1375 ml Balance 25 ml Constitutional: AAO x 3, well-developed, other (thin-appearing) Respiratory: No accessory muscle use, No respiratory distress; rhonchi (scattered), other (prolonged exp phase) Cardiovascular: irregularly irregular Gastrointestional: No tender; soft, audible bowel sounds Extremities: no lower extremity edema bilateral Neurologic/Psychiatric: other (moves all limbs equally) Skin: No rash on exposed areas, No ulcerations on exposed areas Results/Procedures: Labs Laboratory Tests 02/18/22 04:07: White Blood Count 12.1H, Red Blood Count 5.12, Hemoglobin 15.6, Hematocrit 46, Mean Corpuscular Volume 90, Mean Corpuscular Hemoglobin 31, Mean Corpuscular Hemoglobin Concent 34, Red Cell Distribution Width 13.4, Platelet Count 307, Mean Platelet Volume 10.5, Immature Granulocyte % (Auto) 0, Neutrophils (%) (Auto) 84H, Lymphocytes (%) (Auto) 7L, Monocytes (%) (Auto) 7, Eosinophils (%) (Auto) 2, Basophils (%) (Auto) 0, Neutrophils # (Auto) 10.2H, Lymphocytes # (Auto) 0.8L, Monocytes # (Auto) 0.9, Eosinophils # (Auto) 0.2, Basophils # (Auto) 0.1, Immature Granulocyte # (Auto) 0.1, Sodium Level 136, Potassium Level 4.6, Chloride Level 91L, Carbon Dioxide Level 31, Anion Gap 14, Blood Urea Nitrogen 49H, Creatinine 1.37H, Estimat Glomerular Filtration Rate 54, BUN/Creatinine Ratio 36, Glucose Level 113H, Calcium Level 9.3, Magnesium Level 1.8 Microbiology 02/08/22 MRSA Screen - Final, Complete MRSA not isolated Laboratory Tests 02/17/22 03:31 02/18/22 04:07 A/P: Assessment: Newly dx atrial flutter/fib w/ intermittent RVR - on EKG of 02-08-22 at [facility] ED - rate controlled - on BB and Digoxin - OAC with Eliquis - Ext elec CV to NSR on 02/18/22 Type 2 CA - RVR in presence of underlying CAD Acute renal insuff (DESIRAE) due to volume depletion - hydration improved azotemia but led to volume overload - now on diuretics ICM - Echocardiogram of 05-21-[address] Cadet showed LVEF 40-45%. Grade 1 diastolic dysfunction. Mild AoR. PASP 15-20 mmHg - Echo on 02/09/22: LVEF 40-45%, mod biatrial enlargement, PASP 40-45 mmHg - MARK on 02/18/22: LVEF 45-50%, no evidence of intracardiac thrombus Hematuria - resolved - management per Medical/Urology services Coronary artery disease - history of 4 vessel CABG in 1996 in [place] - Cardiac catheterization [place] [address] Cadet showing patent vein graft to the circumflex artery and vein graft to the right coronary artery, severe stenosis in the LAD, had 2 stents in the proximal LAD, underwent balloon angioplasty for in-stent restenosis, has severe stenosis in the diagonal branch that was not intervened on. - Cardiac catheterization on May 22, [address] Cadet showing moderate stenos is in the stent of the LAD and distal left main, moderate diffuse disease, diagonal branch had significatn disase but was a small artery, occluded vein graft to the circumflex artery and had moderately severe ostial stenosis of the vein graft to the right coronary artery to which balloon angioplasty was undertaken with good results H/o hypertension Hyperlipidemia Tobaccoism - 1/2 PPD of cigs - cessation advised DM 2 Ac exac of COPD - oxygen dependent Plan: * Ext elec CV to NSR on 02/18/22 * Eliquis for stroke prophylaxis * Continue ASA for CAD * Continue spironolactone and furosemide and SGLT-2 inhib * Monitor labs, including dig level * Increase ambulation * Med svce managing COPD and ch resp failure Clinical Quality Measures AMI/AHF: ASA po Prior to arrival: Yes MONICA CRUZ MD FACP [facility] CCDS Feb 18, 2022 09:35
[2022-02-18] MEDS: SPIRONOLACTONE 25 MG (ALDACTONE) TAB PO SCH (11:20)
[2022-02-18] MEDS: APIXABAN 5 MG (ELIQUIS) TABLET PO SCH ×2 (11:20→20:34)
[2022-02-18] MEDS: meTOproloL SUCCINATE 50 MG (TOPROL XL) TAB PO SCH (11:20)
[2022-02-18] MEDS: FUROSEMIDE 40 MG (LASIX) TAB PO SCH (11:20)
[2022-02-18] MEDS: DIGOXIN 0.125 MG (LANOXIN) TAB PO SCH (11:20)
[2022-02-18] MEDS: PANTOPRAZOLE 40 MG (PROTONIX) TAB PO SCH (11:21)
[2022-02-18] MEDS: EMPAGLIFLOZIN 10 MG TABLET (JARDIANCE) PO SCH (11:21)
[2022-02-18] MEDS: ASPIRIN 81 MG CHEW (CHILDREN'S ASA) PO SCH (11:21)
[2022-02-18] MEDS: DOCUSATE SODIUM 100 MG (COLACE) CAP PO SCH ×2 (11:28→20:33)
[2022-02-18] MEDS: SENNOSIDES 8.6 MG (SENOKOT) TAB PO SCH ×2 (11:28→20:33)
--- NOTE | 2022-02-18 11:52 | Anesthesia-General Post-Op ---
MAC Patient Condition Mental Status/LOC: Same as Preop Cardiovascular: Satisfactory Nausea/Vomiting: Absent Respiratory: Satisfactory Pain: Controlled Complications: Absent Post Op Complications Complications None Follow Up Care/Instructions Patient Instructions None needed. Anesthesiology Discharge Order Discharge Order Patient is doing well, no complaints, stable vital signs, no apparent adverse anesthesia problems. No complications reported per nursing. CARYN ALFONSO CRNA Feb 18, 2022 11:52
[2022-02-18] MEDS ORDERED: predniSONE 20 MG TAB PO NR (12:00)
[2022-02-18] MEDS: TAMSULOSIN 0.4 MG (FLOMAX) CAP PO SCH (17:15)
--- NOTE | 2022-02-18 17:43 | Diagnostic Imaging Report ---
CHEST 1 VIEW, AP/PA ONLY INDICATION: Increased shortness of air. COMPARISON: 02/04/2022. FINDINGS: No change in the bibasilar heterogeneous consolidations. No pleural effusion or pneumothorax. Normal heart size. Stable changes of CABG. IMPRESSION: 1. No change in multifocal basilar consolidations that are likely due to edema and/or multifocal pneumonia. Dictated by: Dictated on workstation # [id number]
--- NOTE | 2022-02-18 18:47 | OPERATIVE REPORT ---
PREOPERATIVE DIAGNOSIS: Atrial fibrillation/flutter. POSTOPERATIVE DIAGNOSIS: Sinus rhythm. The patient is a 76-year-old gentleman who was admitted with atrial flutter/fibrillation with a rapid ventricular response. Rate was controlled, but he remained in atrial fibrillation and he was also in respiratory failure due to acute exacerbation of chronic obstructive pulmonary disease and it appeared that he may also have some degree of heart failure, to which atrial fibrillation was contributing. Accordingly, informed consent was obtained for transesophageal echocardiography and for external electrical cardioversion. Transesophageal echocardiography was carried out immediately prior to the external electrical cardioversion. No intracardiac thrombus was seen. We delivered 75 joules of biphasic shock through external pads, which restored atrial fibrillation to sinus rhythm. He went back into A Fib. 120 J shock was delivered. He remained in A Fib. 200 J shock was delivered. He converted to NSR Job ID: [id number] DocumentID: [id number] Dictated Date: 02/18/2022 09:35:11 Manager Critical Care Unit Date: 02/18/2022 18:45:00 Dictated By: MONICA CRUZ MD; JEANNINE; FACP; FACC; MANISH
[2022-02-18] MEDS: ROSUVASTATIN 10 MG (CRESTOR) TABLET PO SCH (20:34)
[2022-02-19] MEDS: RT-ALBUTEROL/IPRATROPIUM 3 ML (DUONEB) VIAL INH SCH ×4 (02:50→19:39)
[2022-02-19 05:29] LABS: BASOPHILS % (AUTO) 0 % (0-10); EOSINOPHILS % (AUTO) 0 % (0-10); HEMATOCRIT 48 % (40-54); HEMOGLOBIN 16.1 g/dL (13.3-17.7); LYMPHOCYTES # (AUTO) 0.4 10^3/uL (1.0-4.0); LYMPHOCYTES % (AUTO) 2 % (12-44); MEAN CORPUSCULAR HEMOGLOBIN 31 pg (25-34); MEAN CORPUSCULAR HGB CONC 34 g/dL (32-36); MEAN CORPUSCULAR VOLUME 91 fL (80-99); MEAN PLATELET VOLUME 10.8 fL (9.0-12.2); MONOCYTES # (AUTO) 0.4 10^3/uL (0.0-1.0); MONOCYTES % (AUTO) 2 % (0-12); NEUTROPHILS # (AUTO) 19.3 10^3/uL (1.8-7.8); NEUTROPHILS % (AUTO) 95 % (42-75); PLATELET COUNT 313 10^3/uL (130-400); WHITE BLOOD COUNT 20.3 10^3/uL (4.3-11.0)
[2022-02-19 05:47] LABS: CALCIUM 9.7 MG/DL (8.5-10.1); CREATININE SERUM 1.44 MG/DL (0.60-1.30); POTASSIUM 4.4 MMOL/L (3.6-5.0)
[2022-02-19 06:11] LABS: LYMPHOCYTES % (MANUAL) 2 %; MONOCYTES % (MANUAL) 2 %; NEUTROPHILS % (MANUAL) 96 %; RBC MORPH NORMAL
[2022-02-19] MEDS: POTASSIUM CL 10MEQ/50ML IVPB 50 ML IV SCH (06:22)
[2022-02-19] MEDS: KCL 20 MEQ TAB (K-DUR) PO SCH (06:22)
[2022-02-19] MEDS: MAGNESIUM 1 GM/100 ML IVPB 100 ML IV SCH (06:30)
[2022-02-19] MEDS: predniSONE 20 MG TAB PO SCH (06:48)
[2022-02-19] MEDS: RT--FLUTICASONE/SALMETEROL 113-14 (AIRDUO RespiCLICK) IH SCH ×2 (06:52→19:40)
[2022-02-19] MEDS: SENNOSIDES 8.6 MG (SENOKOT) TAB PO SCH ×2 (09:49→20:39)
[2022-02-19] MEDS: SPIRONOLACTONE 25 MG (ALDACTONE) TAB PO SCH (09:49)
[2022-02-19] MEDS: DOCUSATE SODIUM 100 MG (COLACE) CAP PO SCH ×2 (09:49→20:39)
[2022-02-19] MEDS: ASPIRIN 81 MG CHEW (CHILDREN'S ASA) PO SCH (09:49)
[2022-02-19] MEDS: FUROSEMIDE 40 MG (LASIX) TAB PO SCH (09:50)
[2022-02-19] MEDS: meTOproloL SUCCINATE 50 MG (TOPROL XL) TAB PO SCH (09:50)
[2022-02-19] MEDS: PANTOPRAZOLE 40 MG (PROTONIX) TAB PO SCH (09:50)
[2022-02-19] MEDS: APIXABAN 5 MG (ELIQUIS) TABLET PO SCH ×2 (09:50→20:39)
[2022-02-19] MEDS: EMPAGLIFLOZIN 10 MG TABLET (JARDIANCE) PO SCH (09:50)
[2022-02-19] MEDS: DIGOXIN 0.125 MG (LANOXIN) TAB PO SCH (09:50)
--- NOTE | 2022-02-19 10:13 | Progress Note - Hospitalist ---
Subjective HPI/CC On Admission Date Seen by Provider: Feb 19, 2022 Bria Crowder is a 76 year old male with PMH HTN, HLD, CAD s/p CABG and coronary stenting, HFrEF, COPD on home oxygen 2.5 L, who presented with chest tightness. He denies radiation to the shoulder, arm, neck, and jaw. He reports palpitations. He was also very short of breath especially with exertion. He was diaphoretic. He denies nausea and vomiting. He has lower extremity swelling whic h he says has been there for years. He smokes cigars daily. He does not drink alcohol. Subjective/Events-last exam Pt reports feeling ok today. Eating a banana. No complaints. Still on Vapotherm after having to go back on it after attempted cardioversion. Objective Exam Vital Signs Vital Signs Date Time Temp Pulse Resp B/P (MAP) Pulse Ox O2 Delivery O2 Flow Rate FiO2 02/19/22 09:48 89 Vapotherm 25.00 50.00 02/19/22 09:00 82 19 100/58 (72) 02/19/22 08:00 36.6 02/19/22 06:52 45 Capillary Refill : Less Than 3 Seconds General Appearance: No Apparent Distress, Chronically ill, Thin Respiratory: No Accessory Muscle Use, Decreased Breath Sounds, Other (on Vapotherm) Cardiovascular: Regular Rate, Rhythm, No Murmur Gastrointestinal: Normal Bowel Sounds, Non Tender, Soft Neurologic/Psychiatric: Alert, Oriented x3 Results/Procedures Lab Laboratory Tests 02/19/22 04:25 Patient resulted labs reviewed. Imaging: Reviewed Imaging Report Assessment/Plan Assessment and Plan Assess & Plan/Chief Complaint Acute on chronic HFrEF Acute on chronic respiratory failure with hypoxia COPD with baseline 2.5lpm need EF 40-45% Back on Vapotherm- attempt to wean back to HFNC today Continue Lasix Resumed steroids due to wheezing yesterday -670ml yesterday PT discharged from services as at baseline Atrial flutter with rapid ventricular response Cardiology following On metoprolol now Eliquis Potential cardioversion today NSTEMI CAD s/p CABG Troponin elevated, presumed type II DE due to RVR Continue ASA and Plavix Hematuria Possibly traumatic Urology following- cysto done 02/15 Hypomagnesemia Monitor and replace as needed HTN HLD No acute needs DVT prophylaxis: already receiving therapeutic anticoagulation Critical Care Critically Ill Patient Clinical Quality Measures AMI/AHF: ASA po Prior to arrival: Yes TROY CHERRY MD Feb 19, 2022 10:13
--- NOTE | 2022-02-19 11:37 | Tele-ICU Progress Note ---
Subjective Date Seen by a Provider: Feb 19, 2022 Time Seen by a Provider: 11:37 Subjective/Events-last exam (Tele-ICU Physician , consultation) Available chart/ vitals / labs / Images reviewed H&P is from ER notes Patient's information available about PMH, allergy reviewed in EMR. ROS as per chart and RN report Video assessment done using teleICU camera, rest of exam as per RN Discussed with RN. Is a 76-year-old male with past medical history of hypertension, coronary artery disease status post CABG and coronary stenting, HF R EF, COPD on home oxygen 2.5 L nasal cannula presented to the emergency room with a chest tightness and shortness of breath. He is found to have a non-STEMI and congestive heart failure with acute and chronic respiratory failure. He is started on diuretic therapy initially on a BiPAP and is subsequently he is now on high flow nasal cannula with the help of Vapotherm 50% and I am 25 L. Upon admission he had a atrial flutter which is chronic with rapid ventricular rate and he underwent cardioversion yesterday which resulted in normal sinus rhythm however today he is converted back to atrial flutter. Chest x-ray today suggestive of congestive heart failure. Currently with the supplemental oxygen he feels some short of breath but no acute respiratory distress. He is being anticoagulated with Eliquis 5 mg p.o. twice daily Impression #1 non-STEMI being followed by cardiology 2. Chronic atrial flutter currently rate controlled and he is on Eliquis 5 mg p.o. twice daily. Cardiology following 3. Acute on chronic congestive heart failure systolic on a diuretic therapy cardiology following. Will give additional dose of Lasix this afternoon 4. COPD exacerbation slowly improving. We will continue bronchodilator therapy 5. VTE prophylaxisulcer prophylaxis. Sepsis Event Evaluation Height, Weight, BMI Height: '" Weight: lbs. oz. kg; 23.41 BMI Method:Stated Exam Exam Patient acknowledged, consented, and participated in this virtual visit which was conducted using real time audio/video Vital Signs Date Time Temp Pulse Resp B/P (MAP) Pulse Ox O2 Delivery O2 Flow Rate FiO2 02/19/22 11:00 81 18 105/70 (82) 90 Vapotherm 25.00 50.00 02/19/22 10:00 87 20 120/74 (89) 90 Vapotherm 25.00 50.00 02/19/22 09:48 89 Vapotherm 25.00 50.00 02/19/22 09:00 82 19 100/58 (72) 90 Vapotherm 25.00 45.00 02/19/22 08:00 90 Vapotherm 25.00 45 02/19/22 08:00 36.6 02/19/22 08:00 79 24 120/66 (84) 90 Vapotherm 25.00 45.00 02/19/22 07:00 82 02/19/22 07:00 69 25 107/66 (80) 92 Vapotherm 25.00 45.00 02/19/22 06:52 88 Vapotherm 25.00 45 02/19/22 06:00 92 20 88/67 (74) 88 Vapotherm 25.00 45.00 02/19/22 05:00 73 14 102/63 (76) 89 Vapotherm 25.00 45.00 02/19/22 04:00 80 22 94/65 (75) 89 Vapotherm 25.00 45.00 02/19/22 03:57 93 Vapotherm 25.00 45 02/19/22 03:47 97 Vapotherm 25.00 45 02/19/22 03:46 36.8 25.00 45.00 02/19/22 03:09 Vapotherm 20.00 45.00 02/19/22 03:00 70 14 100/65 (77) 100 Vapotherm 20.00 40.00 02/19/22 02:00 65 16 111/81 (91) 93 Vapotherm 20.00 40.00 02/19/22 01:00 74 02/19/22 01:00 82 17 96/58 (71) 94 Vapotherm 20.00 40.00 02/19/22 00:00 80 17 99/72 (81) 95 Vapotherm 20.00 40.00 02/18/22 23:57 37.0 20.00 40.00 02/18/22 23:56 97 Vapotherm 25.00 40 02/18/22 23:00 88 18 96/62 (73) 96 Vapotherm 25.00 40.00 02/18/22 22:00 85 18 106/56 (73) 95 Vapotherm 25.00 40.00 02/18/22 21:57 Vapotherm 25.00 40.00 02/18/22 21:51 100 Vapotherm 30.00 100 02/18/22 21:49 100 Vapotherm 30.00 100 02/18/22 21:00 96 18 93/64 (74) 100 Vapotherm 30.00 100.00 02/18/22 20:00 84 23 106/86 (93) 100 Vapotherm 30.00 100.00 02/18/22 19:50 97 Vapotherm 30.00 100 02/18/22 19:47 36.8 Vapotherm 30.00 100.00 02/18/22 19:00 90 02/18/22 19:00 95 24 102/78 (86) 98 Nasal Cannula 10.00 02/18/22 18:00 99 21 111/79 (90) 97 Nasal Cannula 10.00 02/18/22 17:00 97 23 114/73 (87) 92 Nasal Cannula 10.00 02/18/22 16:15 92 Vapotherm 30.00 100 02/18/22 16:00 101 15 116/75 (89) 90 Nasal Cannula 10.00 02/18/22 15:25 37.3 02/18/22 15:00 90 13 104/62 (76) 91 Nasal Cannula 10.00 02/18/22 14:45 92 Vapotherm 30.00 100 02/18/22 14:00 81 16 107/60 (76) 96 Nasal Cannula 10.00 02/18/22 13:00 90 02/18/22 13:00 85 17 95/58 (70) 95 Nasal Cannula 10.00 02/18/22 12:15 94 Vapotherm 30.00 100 02/18/22 12:00 92 17 109/71 (84) 95 Nasal Cannula 10.00 I & O 02/19/22 07:00 Intake Total 878 ml Output Total 1150 ml Balance -272 ml Height & Weight Height: '" Weight: lbs. oz. kg; 23.41 BMI Method:Stated General Appearance: No Apparent Distress, Chronically ill, Thin HEENT: PERRL/EOMI, Pharynx Normal Neck: Normal Inspection, Supple Respiratory: No Accessory Muscle Use, Decreased Breath Sounds, Other (on Vapotherm) Cardiovascular: Regular Rate, Rhythm, No Murmur Capillary Refill: Less Than 3 Seconds Gastrointestinal: normal bowel sounds, non tender, soft Extremity: Non Tender, No Pedal Edema Neurologic/Psychiatric: Alert, Oriented x3 Skin: Normal Color, Warm/Dry Results Lab Laboratory Tests 02/18/22 04:07 02/19/22 04:25 Assessment/Plan Assessment/Plan as above Critical Care: Critically Ill Patient Time spent with patient (mins): 25 MELLISA VERDUZCO MD Feb 19, 2022 11:37
[2022-02-19] MEDS ORDERED: FUROSEMIDE 40 MG/4 ML INJ (LASIX) IVP NR (13:00)
--- NOTE | 2022-02-19 16:53 | Progress Note - Cardiology ---
Cardiology SOAP Progress Note Subjective: Gen malaise and weakness Shortness of breath with mod activity No cp or palp or syncope No n/v/d No focal weakness Objective: I&O/Vital Signs 02/19/22 02/19/22 02/19/22 02/19/22 05:00 06:00 06:52 07:00 Pulse 73 92 69 Resp 14 20 25 B/P (MAP) 102/63 (76) 88/67 (74) 107/66 (80) Pulse Ox 89 88 88 92 O2 Delivery Vapotherm Vapotherm Vapotherm Vapotherm O2 Flow Rate 25.00 25.00 25.00 25.00 45.00 45.00 45.00 FiO2 45 02/19/22 02/19/22 02/19/22 02/19/22 07:00 08:00 08:00 08:00 Temp 36.6 Pulse 82 79 Resp 24 B/P (MAP) 120/66 (84) Pulse Ox 90 90 O2 Delivery Vapotherm Vapotherm O2 Flow Rate 25.00 25.00 45.00 FiO2 45 02/19/22 02/19/22 02/19/22 02/19/22 09:00 09:48 10:00 11:00 Pulse 82 87 81 Resp 19 20 18 B/P (MAP) 100/58 (72) 120/74 (89) 105/70 (82) Pulse Ox 90 89 90 90 O2 Delivery Vapotherm Vapotherm Vapotherm Vapotherm O2 Flow Rate 25.00 25.00 25.00 25.00 45.00 50.00 50.00 50.00 02/19/22 02/19/22 02/19/22 02/19/22 12:00 12:00 12:00 12:42 Temp 36.4 Pulse 73 B/P (MAP) 101/65 (77) Pulse Ox 90 89 88 O2 Delivery Vapotherm Vapotherm Vapotherm O2 Flow Rate 25.00 25.00 35.00 50.00 50.00 FiO2 50 02/19/22 02/19/22 02/19/22 02/19/22 13:00 13:00 14:00 14:27 Pulse 57 82 84 Resp 29 16 B/P (MAP) 116/69 (85) 105/77 (86) Pulse Ox 90 92 92 O2 Delivery Vapotherm Vapotherm Vapotherm O2 Flow Rate 35.00 35.00 35.00 50.00 50.00 FiO2 50 02/19/22 02/19/22 15:00 16:00 Pulse 82 82 B/P (MAP) 99/76 (84) 114/77 (89) Pulse Ox 90 91 O2 Delivery Vapotherm Vapotherm O2 Flow Rate 35.00 35.00 50.00 50.00 02/19/22 00:00 Intake Total 278 ml Output Total 650 ml Balance -372 ml Constitutional: AAO x 3, well-developed, other (thin-appearing) Respiratory: No accessory muscle use, No respiratory distress; rhonchi (scattered), other (prolonged exp phase) Cardiovascular: irregularly irregular Gastrointestional: No tender; soft, audible bowel sounds Extremities: no lower extremity edema bilateral Neurologic/Psychiatric: other (moves all limbs equally) Skin: No rash on exposed areas, No ulcerations on exposed areas Results/Procedures: Labs Laboratory Tests 02/19/22 04:15: Magnesium Level 1.9 02/19/22 04:25: White Blood Count 20.3H, Red Blood Count 5.28, Hemoglobin 16.1, Hematocrit 48, Mean Corpuscular Volume 91, Mean Corpuscular Hemoglobin 31, Mean Corpuscular Hemoglobin Concent 34, Red Cell Distribution Width 13.3, Platelet Count 313, Mean Platelet Volume 10.8, Immature Granulocyte % (Auto) 1, Neutrophils (%) (Auto) 95H, Lymphocytes (%) (Auto) 2L, Monocytes (%) (Auto) 2, Eosinophils (%) (Auto) 0, Basophils (%) (Auto) 0, Neutrophils # (Auto) 19.3H, Lymphocytes # (Auto) 0.4L, Monocytes # (Auto) 0.4, Eosinophils # (Auto) 0.0, Basophils # (Auto) 0.0, Immature Granulocyte # (Auto) 0.1, Neutrophils % (Manual) 96, Lymphocytes % (Manual) 2, Monocytes % (Manual) 2, Blood Morphology Comment NORMAL, Sodium Level 136, Potassium Level 4.4, Chloride Level 94L, Carbon Dioxi de Level 31, Anion Gap 11, Blood Urea Nitrogen 48H, Creatinine 1.44H, Estimat Glomerular Filtration Rate 51, BUN/Creatinine Ratio 33, Glucose Level 170H, Calcium Level 9.7 02/19/22 16:01: Glucometer 243H Microbiology 02/08/22 MRSA Screen - Final, Complete MRSA not isolated Laboratory Tests 02/18/22 04:07 02/19/22 04:25 A/P: Assessment: Newly dx atrial flutter/fib w/ intermittent RVR - on EKG of 02-08-22 at [facility] ED - rate controlled - on BB and Digoxin - OAC with Eliquis - 3 attempts at ext elec CV on 02/18/22, none was able to keep in NSR Type 2 [place] - RVR in presence of underlying CAD Acute renal insuff (DESIRAE) due to volume depletion - hydration improved azotemia but led to volume overload - now on diuretics ICM - Echocardiogram of 05-21-[address] Cadet showed LVEF 40-45%. Grade 1 diastolic dysfunction. Mild AoR. PASP 15-20 mmHg - Echo on 02/09/22: LVEF 40-45%, mod biatrial enlargement, PASP 40-45 mmHg - MARK on 02/18/22: LVEF 45-50%, no evidence of intracardiac thrombus Hematuria - resolved - management per Medical/Urology services Coronary artery disease - history of 4 vessel CABG in 1996 in [place] - Cardiac catheter[place] [address] Cadet showing patent vein graft to the circumflex artery and vein graft to the right coronary artery, severe stenosis in the LAD, had 2 stents in the proximal LAD, underwent balloon angioplasty for in-stent restenosis, has severe stenosis in the diagonal branch that was not intervened on. - Cardiac catheterization on May 22, [address] Cadet showing moderate stenosis in the stent of the LAD and distal left main, moderate diffuse disease, diagonal branch had significatn disase but was a small artery, occluded vein graft to the circumflex artery and had moderately severe ostial stenosis of the vein graft to the right coronary artery to which balloon angioplasty was undertaken with good results H/o hypertension Hyperlipidemia Tobaccoism - 1/2 PPD of cigs - cessation advised DM 2 Ac exac of COPD - oxygen dependent Plan: * Ext elec CV has failed repeatedly. Plan is rate control * Eliquis for stroke prophylaxis * Continue ASA for CAD * Continue spironolactone and furosemide and SGLT-2 inhib * Monitor labs, including dig level * Increase ambulation * Med svce managing COPD and ch resp failure Clinical Quality Measures AMI/AHF: ASA po Prior to arrival: Yes MONICA CRUZ MD FACP FAC CCDS Feb 19, 2022 16:53
[2022-02-19] MEDS ORDERED: inSUlin ASPART (NovoLOG) 1 UNIT/0.01 ML (CHARGE PER UNIT) ONE ×2 (17:24→20:36)
[2022-02-19] MEDS: inSUlin ASPART (NovoLOG) 1 UNIT/0.01 ML (CHARGE PER UNIT) SC SCH ×2 (17:27→20:39)
[2022-02-19] MEDS: TAMSULOSIN 0.4 MG (FLOMAX) CAP PO SCH (17:27)
[2022-02-19] MEDS: ROSUVASTATIN 10 MG (CRESTOR) TABLET PO SCH (20:39)
[2022-02-20] MEDS: RT-ALBUTEROL/IPRATROPIUM 3 ML (DUONEB) VIAL INH SCH ×4 (03:37→22:00)
[2022-02-20 04:23] LABS: BASOPHILS % (AUTO) 0 % (0-10); EOSINOPHILS % (AUTO) 0 % (0-10); HEMATOCRIT 43 % (40-54); HEMOGLOBIN 15.1 g/dL (13.3-17.7); LYMPHOCYTES # (AUTO) 0.7 10^3/uL (1.0-4.0); LYMPHOCYTES % (AUTO) 4 % (12-44); MEAN CORPUSCULAR HEMOGLOBIN 31 pg (25-34); MEAN CORPUSCULAR HGB CONC 35 g/dL (32-36); MEAN CORPUSCULAR VOLUME 88 fL (80-99); MEAN PLATELET VOLUME 10.4 fL (9.0-12.2); MONOCYTES # (AUTO) 0.6 10^3/uL (0.0-1.0); MONOCYTES % (AUTO) 4 % (0-12); NEUTROPHILS # (AUTO) 15.4 10^3/uL (1.8-7.8); NEUTROPHILS % (AUTO) 91 % (42-75); PLATELET COUNT 323 10^3/uL (130-400); WHITE BLOOD COUNT 16.8 10^3/uL (4.3-11.0)
[2022-02-20 05:01] LABS: ALBUMIN 3.1 GM/DL (3.2-4.5); BILIRUBIN,TOTAL 0.5 MG/DL (0.1-1.0); CALCIUM 9.4 MG/DL (8.5-10.1); CREATININE SERUM 1.49 MG/DL (0.60-1.30); MAGNESIUM 1.7 MG/DL (1.6-2.4); PHOSPHORUS 3.2 MG/DL (2.3-4.7); POTASSIUM 4.3 MMOL/L (3.6-5.0); TOTAL PROTEIN 6.1 GM/DL (6.4-8.2)
[2022-02-20] MEDS: POTASSIUM CL 10MEQ/50ML IVPB 50 ML IV SCH (05:09)
[2022-02-20] MEDS: KCL 20 MEQ TAB (K-DUR) PO SCH (05:10)
[2022-02-20] MEDS: inSUlin ASPART (NovoLOG) 1 UNIT/0.01 ML (CHARGE PER UNIT) SC SCH ×4 (05:10→21:05)
[2022-02-20] MEDS: MAGNESIUM 1 GM/100 ML IVPB 100 ML IV SCH ×3 (05:14→05:28)
[2022-02-20] MEDS: predniSONE 20 MG TAB PO SCH (06:32)
--- NOTE | 2022-02-20 08:26 | Tele-ICU Progress Note ---
Subjective Date Seen by a Provider: Feb 20, 2022 Time Seen by a Provider: 08:23 Subjective/Events-last exam (Tele-ICU Physician , Progress note) Available chart/ vitals / labs / Images reviewed H&P is from ER notes Patient's information available about PMH, allergy reviewed in EMR. ROS as per chart and RN report Video assessment done using teleICU camera, rest of exam as per RN Discussed with RN. Is a 76-year-old male with past medical history of hypertension, coronary artery disease status post CABG and coronary stenting, HF R EF, COPD on home oxygen 2.5 L nasal cannula presented to the emergency room with a chest tightness and shortness of breath. He is found to have a non-STEMI and congestive heart failure with acute and chronic respiratory failure. He is started on diuretic therapy initially on a BiPAP and is subsequently he is now on high flow nasal cannula with the help of Vapotherm 50% and I am 25 L. Upon admission he had a atrial flutter which is chronic with rapid ventricular rate and he underwent cardioversion yesterday which resulted in normal sinus rhythm however today he is converted back to atrial flutter. Chest x-ray today suggestive of congestive heart failure. Currently with the supplemental oxygen he feels some short of breath but no acute respiratory distress. He is being anticoagulated with Eliquis 5 mg p.o. twice daily. Chest xray showing improvement in infiltrates. Impression #1 non-STEMI being followed by cardiology 2. Chronic atrial flutter currently rate controlled and he is on Eliquis 5 mg p.o. twice daily. Cardiology following 3. Acute on chronic congestive heart failure systolic on a diuretic therapy cardiology following 4. COPD exacerbation slowly improving. We will continue bronchodilator therapy 5. VTE prophylaxisulcer prophylaxis. 6. Pre renal azotemia. will continue to monitor. Sepsis Event Evaluation Height, Weight, BMI Height: '" Weight: lbs. oz. kg; 21.97 BMI Method:Stated Exam Exam Patient acknowledged, consented, and participated in this virtual visit which was conducted using real time audio/video Vital Signs Date Time Temp Pulse Resp B/P (MAP) Pulse Ox O2 Delivery O2 Flow Rate FiO2 02/20/22 08:00 101 28 141/88 (105) 90 Vapotherm 30.00 55.00 02/20/22 07:00 74 12/18/22 07:00 67 10 116/84 (95) 95 Vapotherm 30.00 55.00 02/20/22 06:00 73 15 119/71 (87) 94 Vapotherm 30.00 55.00 02/20/22 05:00 67 28 109/68 (82) 93 Vapotherm 30.00 55.00 02/20/22 04:32 36.8 02/20/22 04:00 71 33 103/71 (82) 95 Vapotherm 30.00 55.00 02/20/22 04:00 93 Vapotherm 30.00 55 02/20/22 03:37 93 Vapotherm 30.00 55 02/20/22 03:00 75 21 102/59 (73) 94 Vapotherm 30.00 55.00 02/20/22 02:00 82 21 98/59 (72) 94 Vapotherm 30.00 55.00 02/20/22 01:00 80 02/20/22 01:00 74 14 106/63 (77) 94 Vapotherm 30.00 55.00 02/20/22 00:00 66 16 104/69 (81) 94 Vapotherm 30.00 55.00 02/19/22 23:59 93 Vapotherm 30.00 55 02/19/22 23:28 36.6 79 20 105/62 (76) 93 Vapotherm 30.00 55.00 02/19/22 23:00 78 21 105/62 (76) 93 Vapotherm 30.00 55.00 02/19/22 22:00 86 21 108/59 (75) 92 Vapotherm 30.00 55.00 02/19/22 21:44 92 Vapotherm 30.00 55 02/19/22 21:00 82 22 102/66 (78) 92 Vapotherm 30.00 55.00 02/19/22 20:00 98 19 103/60 (74) 92 Vapotherm 30.00 55.00 02/19/22 19:59 92 Vapotherm 30.00 55 02/19/22 19:46 Vapotherm 02/19/22 19:44 30.00 55.00 02/19/22 19:42 92 Vapotherm 30.00 55 02/19/22 19:00 77 20 95/55 (68) 91 Vapotherm 30.00 40.00 02/19/22 19:00 84 02/19/22 19:00 36.8 Vapotherm 30.00 40.00 02/19/22 18:12 Vapotherm 30.00 40.00 02/19/22 18:00 72 20 103/66 (78) 94 Vapotherm 35.00 50.00 02/19/22 17:00 78 112/70 (84) 91 Vapotherm 35.00 50.00 02/19/22 16:00 36.7 02/19/22 16:00 93 Vapotherm 35.00 50 02/19/22 16:00 82 114/77 (89) 91 Vapotherm 35.00 50.00 02/19/22 15:00 82 99/76 (84) 90 Vapotherm 35.00 50.00 02/19/22 14:27 92 Vapotherm 35.00 50 02/19/22 14:00 84 16 105/77 (86) 92 Vapotherm 35.00 50.00 02/19/22 13:00 82 29 116/69 (85) 90 Vapotherm 35.00 50.00 02/19/22 13:00 57 02/19/22 12:42 88 Vapotherm 35.00 50.00 02/19/22 12:00 73 101/65 (77) 89 Vapotherm 25.00 50.00 02/19/22 12:00 36.4 02/19/22 12:00 90 Vapotherm 25.00 50 02/19/22 11:00 81 18 105/70 (82) 90 Vapotherm 25.00 50.00 02/19/22 10:00 87 20 120/74 (89) 90 Vapotherm 25.00 50.00 02/19/22 09:48 89 Vapotherm 25.00 50.00 02/19/22 09:00 82 19 100/58 (72) 90 Vapotherm 25.00 45.00 I & O 02/20/22 07:00 Intake Total 2500 ml Output Total 3050 ml Balance -550 ml Height & Weight Height: '" Weight: lbs. oz. kg; 21.97 BMI Method:Stated General Appearance: No Apparent Distress, Chronically ill, Thin HEENT: PERRL/EOMI, Pharynx Normal Neck: Normal Inspection, Supple Respiratory: No Accessory Muscle Use, Decreased Breath Sounds, Other (on Vapotherm) Cardiovascular: Regular Rate, Rhythm, No Murmur Capillary Refill: Less Than 3 Seconds Gastrointestinal: normal bowel sounds, non tender, soft Extremity: Non Tender, No Pedal Edema Neurologic/Psychiatric: Alert, Oriented x3 Skin: Normal Color, Warm/Dry Results Lab Laboratory Tests 02/19/22 04:25 02/20/22 04:03 Assessment/Plan Assessment/Plan as above. Critical Care: Critically Ill Patient Time spent with patient (mins): 15 MELLISA VERDUZCO MD Feb 20, 2022 08:26
--- NOTE | 2022-02-20 08:30 | Diagnostic Imaging Report ---
INDICATION: CHF. COMPARISON: 02/18/2022 FINDINGS: Single frontal radiographic view of the chest was obtained and shows borderline mild enlargement of the cardiac silhouette perhaps mild prominence of pulmonary vasculature. Pulmonary interstitium is also mildly diffusely prominent. There has however been interval improved aeration of both lung bases. No large effusion or pneumothorax is seen. Sternotomy wires are noted. IMPRESSION: 1. Interval improved aeration, particularly involving the lung bases. 2. Persistent interstitial prominence, which may be on the basis of pulmonary edema. 3. Mild cardiomegaly and pulmonary vasculature prominence. Dictated by: Dictated on workstation # [id number]
[2022-02-20] MEDS: ASPIRIN 81 MG CHEW (CHILDREN'S ASA) PO SCH (08:40)
[2022-02-20] MEDS: SPIRONOLACTONE 25 MG (ALDACTONE) TAB PO SCH (08:40)
[2022-02-20] MEDS: PANTOPRAZOLE 40 MG (PROTONIX) TAB PO SCH (08:40)
[2022-02-20] MEDS: EMPAGLIFLOZIN 10 MG TABLET (JARDIANCE) PO SCH (08:41)
[2022-02-20] MEDS: DOCUSATE SODIUM 100 MG (COLACE) CAP PO SCH ×2 (08:41→21:05)
[2022-02-20] MEDS: FUROSEMIDE 40 MG (LASIX) TAB PO SCH (08:41)
[2022-02-20] MEDS: DIGOXIN 0.125 MG (LANOXIN) TAB PO SCH (08:41)
[2022-02-20] MEDS: meTOproloL SUCCINATE 50 MG (TOPROL XL) TAB PO SCH (08:41)
[2022-02-20] MEDS: SENNOSIDES 8.6 MG (SENOKOT) TAB PO SCH ×2 (08:41→21:04)
[2022-02-20] MEDS: APIXABAN 5 MG (ELIQUIS) TABLET PO SCH ×2 (08:41→21:04)
[2022-02-20] MEDS: RT--FLUTICASONE/SALMETEROL 113-14 (AIRDUO RespiCLICK) IH SCH ×2 (09:04→22:03)
--- NOTE | 2022-02-20 10:43 | Progress Note - Cardiology ---
Cardiology SOAP Progress Note Subjective: short of breath with activity but not at rest no cp no n/v/d no palp or syncope no swelling gen weakness and malaise Objective: I&O/Vital Signs 02/19/22 02/19/22 02/19/22 02/20/22 23:00 23:28 23:59 00:00 Temp 36.6 Pulse 78 79 66 Resp 21 20 16 B/P (MAP) 105/62 (76) 105/62 (76) 104/69 (81) Pulse Ox 93 93 93 94 O2 Delivery Vapotherm Vapotherm Vapotherm Vapotherm O2 Flow Rate 30.00 30.00 30.00 30.00 55.00 55.00 55.00 FiO2 55 02/20/22 02/20/22 02/20/22 02/20/22 01:00 01:00 02:00 03:00 Pulse 74 80 82 75 Resp 14 21 21 B/P (MAP) 106/63 (77) 98/59 (72) 102/59 (73) Pulse Ox 94 94 94 O2 Delivery Vapotherm Vapotherm Vapotherm O2 Flow Rate 30.00 30.00 30.00 55.00 55.00 55.00 02/20/22 02/20/22 02/20/22 02/20/22 03:37 04:00 04:00 04:32 Temp 36.8 Pulse 71 Resp 33 B/P (MAP) 103/71 (82) Pulse Ox 93 93 95 O2 Delivery Vapotherm Vapotherm Vapotherm O2 Flow Rate 30.00 30.00 30.00 55.00 FiO2 55 55 02/20/22 02/20/22 02/20/22 02/20/22 05:00 06:00 07:00 07:00 Pulse 67 73 67 74 Resp 28 15 10 B/P (MAP) 109/68 (82) 119/71 (87) 116/84 (95) Pulse Ox 93 94 95 O2 Delivery Vapotherm Vapotherm Vapotherm O2 Flow Rate 30.00 30.00 30.00 55.00 55.00 55.00 02/20/22 02/20/22 02/20/22 02/20/22 08:00 08:15 08:35 09:00 Temp 37.6 Pulse 101 81 Resp 28 14 B/P (MAP) 141/88 (105) 119/69 (86) Pulse Ox 90 92 94 O2 Delivery Vapotherm Vapotherm Vapotherm O2 Flow Rate 30.00 30.00 30.00 55.00 55.00 FiO2 55 02/20/22 02/20/22 02/20/22 02/20/22 09:05 09:08 09:11 09:19 Pulse Ox 95 94 93 O2 Delivery Vapotherm Vapotherm Vapotherm Vapotherm O2 Flow Rate 30.00 20.00 20.00 20.00 50.00 FiO2 55 50 50 02/20/22 10:00 Pulse 71 Resp 20 B/P (MAP) 115/87 (96) Pulse Ox 94 O2 Delivery Vapotherm O2 Flow Rate 20.00 50.00 02/20/22 00:00 Intake Total 1025 ml Output Total 1825 ml Balance -800 ml Constitutional: AAO x 3, well-developed, other (thin-appearing) Respiratory: No accessory muscle use, No respiratory distress; rhonchi ( scattered), other (prolonged exp phase) Cardiovascular: irregularly irregular Gastrointestional: No tender; soft, audible bowel sounds Extremities: no lower extremity edema bilateral Neurologic/Psychiatric: other (moves all limbs equally) Skin: No rash on exposed areas, No ulcerations on exposed areas Results/Procedures: Labs Laboratory Tests 02/19/22 16:01: Glucometer 243H 02/19/22 20:30: Glucometer 193H 02/20/22 04:03: White Blood Count 16.8H, Red Blood Count 4.89, Hemoglobin 15.1, Hematocrit 43, Mean Corpuscular Volume 88, Mean Corpuscular Hemoglobin 31, Mean Corpuscular Hemoglobin Concent 35, Red Cell Distribution Width 13.1, Platelet Count 323, Mean Platelet Volume 10.4, Immature Granulocyte % (Auto) 1, Neutrophils (%) (Auto) 91H, Lymphocytes (%) (Auto) 4L, Monocytes (%) (Auto) 4, Eosinophils (%) ( Auto) 0, Basophils (%) (Auto) 0, Neutrophils # (Auto) 15.4H, Lymphocytes # (Auto) 0.7L, Monocytes # (Auto) 0.6, Eosinophils # (Auto) 0.0, Basophils # (Auto) 0.0, Immature Granulocyte # (Auto) 0.1, Sodium Level 132L, Potassium Level 4.3, Chloride Level 88L, Carbon Dioxide Level 32, Anion Gap 12, Blood Urea Nitrogen 54H, Creatinine 1.49H, Estimat Glomerular Filtration Rate 49, BUN/Creatinine Ratio 36, Glucose Level 123H, Calcium Level 9.4, Corrected C alcium 10.1, Phosphorus Level 3.2, Magnesium Level 1.7, Total Bilirubin 0.5, Aspartate Amino Transf (AST/SGOT) 39H, Alanine Aminotransferase (ALT/SGPT) 52, Alkaline Phosphatase 105, Total Protein 6.1L, Albumin 3.1L, Digoxin Level 0.92 Microbiology 02/08/22 MRSA Screen - Final, Complete MRSA not isolated Laboratory Tests 02/19/22 04:25 02/20/22 04:03 A/P: Assessment: Newly dx atrial flutter/fib w/ intermittent RVR - on EKG of 02-08-22 at [facility] ED - rate controlled - on BB and Digoxin - OAC with Eliquis - 3 attempts at ext elec CV on 02/18/22, none was able to keep in NSR Type 2 MO - RVR in presence of underlying CAD Acute renal insuff (DESIRAE) due to volume depletion - hydration improved azotemia but led to volume overload - now on diuretics ICM - Echocardiogram of 05-21-[address] Cadet showed LVEF 40-45%. Grade 1 diastolic dysfunction. Mild AoR. PASP 15-20 mmHg - Echo on 02/09/22: LVEF 40-45%, mod biatrial enlargement, PASP 40-45 mmHg - MARK on 02/18/22: LVEF 45-50%, no evidence of intracardiac thrombus Hematuria - resolved - management per Medical/Urology services Coronary artery disease - history of 4 vessel CABG in 1996 in [place] - Cardiac catheterization [place] [address] Cadet showing patent vein graft to the circumflex artery and vein graft to the right coronary artery, severe stenosis in the LAD, had 2 stents in the proximal LAD, underwent balloon angioplasty for in-stent restenosis, has severe stenosis in the diagonal branch that was not intervened on. - Cardiac catheterization on May 22, [address] Cadet showing moderate stenosis in the stent of the LAD and distal left main, moderate diffuse disease, diagonal branch had significatn disase but was a small artery, occluded vein graft to the circumflex artery and had moderately severe ostial stenosis of the vein graft to the right coronary artery to which balloon angioplasty was undertaken with good results H/o hypertension Hyperlipidemia Tobaccoism - 1/2 PPD of cigs - cessation advised DM 2 Ac exac of COPD - oxygen dependent Plan: * Complex management * Ext elec CV has failed repeatedly. Plan is rate control * Eliquis for stroke prophylaxis * Continue ASA for CAD * Continue spironolactone and furosemide and SGLT-2 inhib * Monitor labs, including dig level. Reduce dig if level greater than 1 * Increase ambulation * Med svce managing COPD and ch resp failure Clinical Quality Measures AMI/AHF: ASA po Prior to arrival: Yes MONICA CRUZ MD FACP FAC CCDS Feb 20, 2022 10:43
--- NOTE | 2022-02-20 14:14 | Progress Note - Hospitalist ---
Subjective HPI/CC On Admission Date Seen by Provider: Feb 20, 2022 Bria Crowder is a 76 year old male with PMH HTN, HLD, CAD s/p CABG and coronary stenting, HFrEF, COPD on home oxygen 2.5 L, who presented with chest tightness. He denies radiation to the shoulder, arm, neck, and jaw. He reports palpitations. He was also very short of breath especially with exertion. He was diaphoretic. He denies nausea and vomiting. He has lower extremity swelling whic h he says has been there for years. He smokes cigars daily. He does not drink alcohol. Subjective/Events-last exam Pt up to chair today. Reports feeling well. Still on Vapotherm. Working on weaning down. Discussed with him and RT. Objective Exam Vital Signs Vital Signs Date Time Temp Pulse Resp B/P (MAP) Pulse Ox O2 Delivery O2 Flow Rate FiO2 02/20/22 13:00 73 19 104/56 (72) 90 Vapotherm 20.00 50.00 02/20/22 12:27 36.5 02/20/22 09:11 50 Capillary Refill : Less Than 3 Seconds General Appearance: No Apparent Distress, Chronically ill, Thin Respiratory: Lungs Clear, No Respiratory Distress Cardiovascular: Regular Rate, Rhythm, No Murmur Gastrointestinal: Normal Bowel Sounds, Non Tender, Soft Extremity: No Calf Tenderness, No Pedal Edema Neurologic/Psychiatric: Alert, Oriented x3 Results/Procedures Lab Laboratory Tests 02/20/22 04:03 Patient resulted labs reviewed. Imaging: Reviewed Imaging Report Assessment/Plan Assessment and Plan Assess & Plan/Chief Complaint Acute on chronic HFrEF Acute on chronic respiratory failure with hypoxia COPD with baseline 2.5lpm need EF 40-45% Weaning Vapotherm- if unable to get off by tomorrow consider [place] again Continue Lasix Continue Steroids -700ml yesterday Atrial flutter with rapid ventricular response Cardiology following On metoprolol now Eliquis Failed cardioversion- rate control now goal NSTEMI CAD s/p CABG Troponin elevated, presumed type II AR due to RVR Continue ASA and Plavix Hematuria Possibly traumatic Urology following- cysto done 02/15 HTN HLD No acute needs DVT prophylaxis: already receiving therapeutic anticoagulation Critical Care Critically Ill Patient Clinical Quality Measures AMI/AHF: ASA po Prior to arrival: Yes TROY CHERRY MD Feb 20, 2022 14:14
[2022-02-20] MEDS: TAMSULOSIN 0.4 MG (FLOMAX) CAP PO SCH (17:38)
[2022-02-20] MEDS: ROSUVASTATIN 10 MG (CRESTOR) TABLET PO SCH (21:04)
[2022-02-21] MEDS: RT-ALBUTEROL/IPRATROPIUM 3 ML (DUONEB) VIAL INH SCH ×4 (03:05→21:34)
[2022-02-21 04:17] LABS: BASOPHILS % (AUTO) 0 % (0-10); EOSINOPHILS % (AUTO) 0 % (0-10); HEMATOCRIT 42 % (40-54); HEMOGLOBIN 14.5 g/dL (13.3-17.7); LYMPHOCYTES # (AUTO) 0.7 10^3/uL (1.0-4.0); LYMPHOCYTES % (AUTO) 4 % (12-44); MEAN CORPUSCULAR HEMOGLOBIN 30 pg (25-34); MEAN CORPUSCULAR HGB CONC 35 g/dL (32-36); MEAN CORPUSCULAR VOLUME 88 fL (80-99); MEAN PLATELET VOLUME 10.3 fL (9.0-12.2); MONOCYTES # (AUTO) 0.7 10^3/uL (0.0-1.0); MONOCYTES % (AUTO) 5 % (0-12); NEUTROPHILS # (AUTO) 13.8 10^3/uL (1.8-7.8); NEUTROPHILS % (AUTO) 90 % (42-75); PLATELET COUNT 338 10^3/uL (130-400); WHITE BLOOD COUNT 15.3 10^3/uL (4.3-11.0)
[2022-02-21 04:31] LABS: ALBUMIN 3.1 GM/DL (3.2-4.5); POTASSIUM 4.4 MMOL/L (3.6-5.0)
[2022-02-21 04:32] LABS: CALCIUM 9.2 MG/DL (8.5-10.1)
[2022-02-21 04:34] LABS: TOTAL PROTEIN 5.8 GM/DL (6.4-8.2)
[2022-02-21 04:36] LABS: BILIRUBIN,TOTAL 0.5 MG/DL (0.1-1.0)
[2022-02-21 04:37] LABS: CREATININE SERUM 1.72 MG/DL (0.60-1.30); PHOSPHORUS 3.7 MG/DL (2.3-4.7)
[2022-02-21 04:40] LABS: MAGNESIUM 2.1 MG/DL (1.6-2.4)
[2022-02-21] MEDS: inSUlin ASPART (NovoLOG) 1 UNIT/0.01 ML (CHARGE PER UNIT) SC SCH ×4 (05:14→20:45)
[2022-02-21] MEDS: KCL 20 MEQ TAB (K-DUR) PO SCH (05:14)
[2022-02-21] MEDS: POTASSIUM CL 10MEQ/50ML IVPB 50 ML IV SCH (05:14)
[2022-02-21] MEDS: MAGNESIUM 1 GM/100 ML IVPB 100 ML IV SCH (05:14)
[2022-02-21] MEDS: predniSONE 20 MG TAB PO SCH (06:11)
[2022-02-21] MEDS: EMPAGLIFLOZIN 10 MG TABLET (JARDIANCE) PO SCH (08:32)
[2022-02-21] MEDS: ASPIRIN 81 MG CHEW (CHILDREN'S ASA) PO SCH (08:32)
[2022-02-21] MEDS: DOCUSATE SODIUM 100 MG (COLACE) CAP PO SCH ×2 (08:32→20:13)
[2022-02-21] MEDS: FUROSEMIDE 40 MG (LASIX) TAB PO SCH (08:33)
[2022-02-21] MEDS: SENNOSIDES 8.6 MG (SENOKOT) TAB PO SCH ×2 (08:33→20:13)
[2022-02-21] MEDS: APIXABAN 5 MG (ELIQUIS) TABLET PO SCH ×2 (08:33→20:13)
[2022-02-21] MEDS: DIGOXIN 0.125 MG (LANOXIN) TAB PO SCH (08:33)
[2022-02-21] MEDS: PANTOPRAZOLE 40 MG (PROTONIX) TAB PO SCH (08:33)
[2022-02-21] MEDS: meTOproloL SUCCINATE 50 MG (TOPROL XL) TAB PO SCH (08:33)
[2022-02-21] MEDS: SPIRONOLACTONE 25 MG (ALDACTONE) TAB PO SCH (08:33)
--- NOTE | 2022-02-21 09:06 | Tele-ICU Progress Note ---
Subjective Date Seen by a Provider: Feb 21, 2022 Time Seen by a Provider: 09:06 Subjective/Events-last exam (Tele-ICU Physician , Progress note) Available chart/ vitals / labs / Images reviewed H&P is from ER notes Patient's information available about PMH, allergy reviewed in EMR. ROS as per chart and RN report Video assessment done using teleICU camera, rest of exam as per RN Discussed with RN. Is a 76-year-old male with past medical history of hypertension, coronary artery disease status post CABG and coronary stenting, HF R EF, COPD on home oxygen 2.5 L nasal cannula presented to the emergency room with a chest tightness and shortness of breath. He is found to have a non-STEMI and congestive heart failure with acute and chronic respiratory failure. He is started on diuretic therapy initially on a BiPAP and is subsequently he is now on high flow nasal cannula with the help of Vapotherm 50% and I am 25 L. Upon admission he had a atrial flutter which is chronic with rapid ventricular rate and he underwent cardioversion yesterday which resulted in normal sinus rhythm however today he is converted back to atrial flutter. Chest x-ray today suggestive of congestive heart failure. Currently with the supplemental oxygen he feels some short of breath but no acute respiratory distress. He is being anticoagulated with Eliquis 5 mg p.o. twice daily. Chest xray showing improvement in infiltrates. OXYGEN TRANSITIONED TO N/C 4L Impression #1 non-STEMI being followed by cardiology 2. Chronic atrial flutter currently rate controlled and he is on Eliquis 5 mg p.o. twice daily. Cardiology following 3. Acute on chronic congestive heart failure systolic on a diuretic therapy cardiology following 4. COPD exacerbation slowly improving. We will continue bronchodilator therapy 5. VTE prophylaxisulcer prophylaxis. 6. Pre renal azotemia. will continue to monitor. Sepsis Event Evaluation Height, Weight, BMI Height: '" Weight: lbs. oz. kg; 23.91 BMI Method:Stated Exam Exam Patient acknowledged, consented, and participated in this virtual visit which was conducted using real time audio/video Vital Signs Date Time Temp Pulse Resp B/P (MAP) Pulse Ox O2 Delivery O2 Flow Rate FiO2 02/21/22 07:53 36.8 02/21/22 07:14 76 02/21/22 07:01 95 Vapotherm 20.00 40 02/21/22 07:00 82 21 115/70 (85) 96 Vapotherm 20.00 40.00 02/21/22 06:00 73 21 108/64 (79) 96 Vapotherm 20.00 40.00 02/21/22 05:00 71 12 118/62 (80) 97 Vapotherm 20.00 40.00 02/21/22 04:28 36.2 02/21/22 04:00 98 Vapotherm 20.00 40 02/21/22 04:00 67 107/63 (78) 91 Vapotherm 20.00 40.00 02/21/22 03:05 98 Vapotherm 20.00 40 02/21/22 03:00 66 13 110/56 (74) 98 Vapotherm 20.00 40.00 02/21/22 02:00 64 12 103/61 (75) 97 Vapotherm 20.00 40.00 02/21/22 01:01 80 02/21/22 01:00 76 24 111/71 (84) 96 Vapotherm 20.00 40.00 02/21/22 00:00 72 22 121/71 (88) 98 Vapotherm 20.00 40.00 02/20/22 23:53 36.7 02/20/22 23:36 91 Vapotherm 20.00 40 02/20/22 23:00 81 28 119/67 (84) 96 Vapotherm 20.00 40.00 02/20/22 22:01 91 Vapotherm 20.00 40 02/20/22 22:00 80 19 120/68 (85) 96 Vapotherm 20.00 40.00 02/20/22 21:00 76 18 115/61 (79) 97 Vapotherm 20.00 40.00 02/20/22 20:00 74 24 115/70 (85) 94 Vapotherm 20.00 40.00 02/20/22 19:53 36.5 02/20/22 19:45 93 Vapotherm 20.00 40 02/20/22 19:00 86 02/20/22 19:00 86 35 120/69 (86) 93 Vapotherm 20.00 40.00 02/20/22 18:00 87 22 124/104 (111) 93 Vapotherm 20.00 40.00 02/20/22 17:00 78 25 111/64 (80) 92 Vapotherm 20.00 40.00 02/20/22 16:41 92 Vapotherm 20.00 40 02/20/22 16:00 66 26 104/99 (101) 93 Vapotherm 20.00 40.00 02/20/22 15:11 Vapotherm 20.00 40.00 02/20/22 15:06 91 Vapotherm 20.00 40 02/20/22 15:00 87 23 103/75 (84) 90 Vapotherm 20.00 50.00 02/20/22 14:58 93 Vapotherm 20.00 50 02/20/22 14:00 81 24 112/60 (77) Vapotherm 20.00 50.00 02/20/22 13:00 73 19 104/56 (72) 90 Vapotherm 20.00 50.00 02/20/22 12:56 82 02/20/22 12:35 92 Vapotherm 20.00 55 02/20/22 12:27 36.5 02/20/22 12:18 36.5 02/20/22 12:00 69 22 90 Vapotherm 20.00 50.00 02/20/22 11:00 107 14 120/78 (92) 89 Vapotherm 20.00 50.00 02/20/22 10:00 71 20 115/87 (96) 94 Vapotherm 20.00 50.00 02/20/22 09:19 Vapotherm 20.00 50.00 02/20/22 09:11 93 Vapotherm 20.00 50 02/20/22 09:08 94 Vapotherm 20.00 50 I & O 02/21/22 07:00 Intake Total 3225 ml Output Total 3425 ml Balance -200 ml Height & Weight Height: '" Weight: lbs. oz. kg; 23.91 BMI Method:Stated General Appearance: No Apparent Distress, Chronically ill, Thin HEENT: PERRL/EOMI, Pharynx Normal Neck: Normal Inspection, Supple Respiratory: Lungs Clear, No Respiratory Distress Cardiovascular: Regular Rate, Rhythm, No Murmur Capillary Refill: Less Than 3 Seconds Gastrointestinal: normal bowel sounds, non tender, soft Extremity: No Calf Tenderness, No Pedal Edema Neurologic/Psychiatric: Alert, Oriented x3 Skin: Normal Color, Warm/Dry Results Lab Laboratory Tests 12/18/22 04:03 02/21/22 03:58 Assessment/Plan Assessment/Plan ABOVE Critical Care: Critically Ill Patient Time spent with patient (mins): 15 MELLISA VERDUZCO MD Feb 21, 2022 09:06
[2022-02-21] MEDS: RT--FLUTICASONE/SALMETEROL 113-14 (AIRDUO RespiCLICK) IH SCH ×2 (09:10→21:34)
--- NOTE | 2022-02-21 09:19 | Progress Note - Cardiology ---
Cardiology SOAP Progress Note Subjective: No cp or palp or syncope Shortness of breath with activity No n/v/d No focal weakness Gen weakness present No swelling Objective: I&O/Vital Signs 02/20/22 02/20/22 02/20/22 02/20/22 22:00 22:01 23:00 23:36 Pulse 80 81 Resp 19 28 B/P (MAP) 120/68 (85) 119/67 (84) Pulse Ox 96 91 96 91 O2 Delivery Vapotherm Vapotherm Vapotherm Vapotherm O2 Flow Rate 20.00 20.00 20.00 20.00 40.00 40.00 FiO2 40 40 02/20/22 02/21/22 02/21/22 02/21/22 23:53 00:00 01:00 01:01 Temp 36.7 Pulse 72 76 80 Resp 22 24 B/P (MAP) 121/71 (88) 111/71 (84) Pulse Ox 98 96 O2 Delivery Vapotherm Vapotherm O2 Flow Rate 20.00 20.00 40.00 40.00 02/21/22 02/21/22 02/21/22 02/21/22 02:00 03:00 03:05 04:00 Pulse 64 66 67 Resp 12 13 B/P (MAP) 103/61 (75) 110/56 (74) 107/63 (78) Pulse Ox 97 98 98 91 O2 Delivery Vapotherm Vapotherm Vapotherm Vapotherm O2 Flow Rate 20.00 20.00 20.00 20.00 40.00 40.00 40.00 FiO2 40 02/21/22 02/21/22 02/21/22 02/21/22 04:00 04:28 05:00 06:00 Temp 36.2 Pulse 71 73 Resp 12 21 B/P (MAP) 118/62 (80) 108/64 (79) Pulse Ox 98 97 96 O2 Delivery Vapotherm Vapotherm Vapotherm O2 Flow Rate 20.00 20.00 20.00 40.00 40.00 FiO2 40 02/21/22 02/21/22 02/21/22 02/21/22 07:00 07:01 07:14 07:53 Temp 36.8 Pulse 82 76 Resp 21 B/P (MAP) 115/70 (85) Pulse Ox 96 95 O2 Delivery Vapotherm Vapotherm O2 Flow Rate 20.00 20.00 40.00 FiO2 40 02/21/22 00:00 Intake Total 1325 ml Output Total 1200 ml Balance 125 ml Constitutional: AAO x 3, well-developed, other (thin-appearing) Respiratory: No accessory muscle use, No respiratory distress; rhonchi (scattered), other (prolonged exp phase) Cardiovascular: irregularly irregular Gastrointestional: No tender; soft, audible bowel sounds Extremities: no lower extremity edema bilateral Neurologic/Psychiatric: other (moves all limbs equally) Skin: No rash on exposed areas, No ulcerations on exposed areas Results/Procedures: Labs Laboratory Tests 02/20/22 11:08: Glucometer 183H 02/20/22 15:28: Glucometer 214H 02/20/22 20:56: Glucometer 256H 02/21/22 03:58: White Blood Count 15.3H, Red Blood Count 4.80, Hemoglobin 14.5, Hematocrit 42, Mean Corpuscular Volume 88, Mean Corpuscular Hemoglobin 30, Mean Corpuscular Hemoglobin Concent 35, Red Cell Distribution Width 13.0, Platelet Count 338, Mean Platelet Volume 10.3, Immature Granulocyte % (Auto) 1, Neutrophils (%) (Auto) 90H, Lymphocytes (%) (Auto) 4L, Monocytes (%) (Auto) 5, Eosinophils (%) (Auto) 0, Basophils (%) (Auto) 0, Neutrophils # (Auto) 13.8H, Lymphocytes # (Auto) 0.7L, Monocytes # (Auto) 0.7, Eosinophils # (Auto) 0.0, Basophils # (Auto) 0.0, Immature Granulocyte # (Auto) 0.1, Sodium Level 132L, Potassium Level 4.4, Chloride Level 89L, Carbon Dioxide Level 32, Anion Gap 11, Blood Urea Nitrogen 51H, Creatinine 1.72H, Estimat Glomerular Filtration Rate 41, BUN/Creatinine Ratio 30, Glucose Level 89, Calcium Level 9.2, Corrected Calcium 9.9, Phosphorus Level 3.7, Magnesium Level 2.1, Total Bilirubin 0.5, Aspartate Amino Transf (AST/SGOT) 59H, Alanine Aminotransferase (ALT/SGPT) 71H, Alkaline Phosphatase 102, Total Protein 5.8L, Albumin 3.1L, Digoxin Level 0.89 Microbiology 02/08/22 MRSA Screen - Final, Complete MRSA not isolated Laboratory Tests 02/20/22 04:03 02/21/22 03:58 A/P: Assessment: PAF w/ intermittent RVR - [facility] - rate controlled - on BB and Digoxin - OAC with Eliquis - 3 attempts at ext elec CV on 02/18/22, none was able to keep in NSR Elevated troponin due to Type 2 MT at presentation due to resp failure and due to RVR in presence of underlying CAD Acute renal insuff (DESIRAE) due to volume depletion - hydration improved azotemia but led to volume overload - now on diuretics - reduce diuretics on 02/21/22 Ac on ch resp failure due to ac exac of severe, oxygen-dependent COPD ICM - Echocardiogram of 05-21-[address] Cadet showed LVEF 40-45%. Grade 1 diast olic dysfunction. Mild AoR. PASP 15-20 mmHg - Echo on 02/09/22: LVEF 40-45%, mod biatrial enlargement, PASP 40-45 mmHg - MARK on 02/18/22: LVEF 45-50%, no evidence of intracardiac thrombus Hematuria - resolved - management per Medical/Urology services Coronary artery disease - history of 4 vessel CABG in 1996 in [place] - Cardiac catheterization [place] [address] Cadet showing patent vein graft to the circumflex artery and vein graft to the right coronary artery, severe stenosis in the LAD, had 2 stents in the proximal LAD, underwent balloon angioplasty for in-stent restenosis, has severe stenosis in the diagonal branch that was not intervened on. - Cardiac catheterization on May 22, [address] Cadet showing moderate stenosis in the stent of the LAD and distal left main, moderate diffuse disease, diagonal branch had significatn disase but was a small artery, occluded vein gr aft to the circumflex artery and had moderately severe ostial stenosis of the vein graft to the right coronary artery to which balloon angioplasty was undertaken with good results H/o hypertension Hyperlipidemia Tobaccoism - 1/2 PPD of cigs - cessation advised DM 2 Plan: * Complex management * Reduce diuretics because of worsening renal function (which appears at least partially due to vol depletion) * Ext elec CV has failed repeatedly. Plan is rate control * Eliquis for stroke prophylaxis * Continue ASA for CAD * Continue heart failure meds as tolerated * Monitor labs, including dig level. Reduce dig if level greater than 1 * Increase ambulation * Med svce managing COPD and ac on ch resp failure Clinical Quality Measures AMI/AHF: ASA po Prior to arrival: Yes MONICA CRUZ MD FACP FAC CCDS Feb 21, 2022 09:19
[2022-02-21 09:22] LABS: ABG BASE EXCESS 9.2 MMOL/L (-2.5-2.5); ABG OXYGEN SATURATION 93 % (94-100); ABG PCO2 46 MMHG (35-45); ABG PH 7.47 (7.37-7.43); ABG PO2 65 MMHG (79-93); ABG TCO2 34.8 MMOL/L (21.0-31.0)
[2022-02-21 09:25] LABS: ALLENS TEST YES-POS; INSPIRED O2 40%; PATIENT TEMP 36.5; VENTILATOR NO
[2022-02-21 15:56] VITALS: BP 112/58
[2022-02-21] MEDS: TAMSULOSIN 0.4 MG (FLOMAX) CAP PO SCH (16:45)
[2022-02-21] MEDS: ROSUVASTATIN 10 MG (CRESTOR) TABLET PO SCH (20:12)
[2022-02-21] MEDS: MELATONIN 3 MG TABLET PO PRN (20:13)
[2022-02-21 20:30] VITALS: BP 138/78
--- NOTE | 2022-02-21 20:43 | Progress Note - Hospitalist ---
Subjective HPI/CC On Admission Date Seen by Provider: Feb 21, 2022 Time Seen by Provider: 09:10 Bria Crowder is a 76 year old male with PMH HTN, HLD, CAD s/p CABG and coronary stenting, HFrEF, COPD on home oxygen 2.5 L, who presented with chest tightness. He denies radiation to the shoulder, arm, neck, and jaw. He reports palpitati ons. He was also very short of breath especially with exertion. He was diaphoretic. He denies nausea and vomiting. He has lower extremity swelling which he says has been there for years. He smokes cigars daily. He does not drink alcohol. Subjective/Events-last exam He is feeling ok. He is not short of breath. He wants to go home. Objective Exam Vital Signs Vital Signs Date Time Temp Pulse Resp B/P (MAP) Pulse Ox O2 Delivery O2 Flow Rate FiO2 02/21/22 15:56 36.2 90 20 112/58 (76) 90 Nasal Cannula 4.00 02/21/22 09:10 40 Capillary Refill : Less Than 3 Seconds General Appearance: No Apparent Distress, WD/WN Respiratory: No Respiratory Distress, Decreased Breath Sounds Cardiovascular: No Murmur, Irregularly Irregular Gastrointestinal: Normal Bowel Sounds, Soft Extremity: Normal Inspection, No Pedal Edema Neurologic/Psychiatric: Alert, Normal Mood/Affect Skin: Normal Color, Warm/Dry Results/Procedures Lab Laboratory Tests 02/21/22 03:58 Patient resulted labs reviewed. Imaging: Reviewed Imaging Report Assessment/Plan Assessment and Plan Assess & Plan/Chief Complaint Acute on chronic HFrEF Acute on chronic respiratory failure with hypoxia COPD EF 40-45% Attempt to transition off Vapotherm today Continue Lasix Continue steroids MAT protocol Atrial flutter with rapid ventricular response Cardiology following Continue Metoprolol Eliquis Failed cardioversion NSTEMI CAD s/p CABG Troponin elevated, presumed type II VA due to RVR Continue ASA and Plavix Hematuria Possibly traumatic Urology following s/p cysto 02/15 HTN HLD No acute needs DVT prophylaxis: already receiving therapeutic anticoagulation Diagnosis/Problems Diagnosis/Problems (1) Atrial flutter with rapid ventricular response Status: Acute (2) Acute on chronic HFrEF (heart failure with reduced ejection fraction) Status: Acute (3) NSTEMI (non-ST elevated myocardial infarction) Status: Acute (4) Coronary artery disease Status: Acute Qualifiers: Coronary Disease-Associated Artery/Lesion type: unspecified vessel or lesion type [place] vs. transplanted heart: [place] heart Associated angina: unspecified whether angina present Qualified Codes: I25.10 - Atherosclerotic heart disease of [place] coronary artery without angina pectoris (5) COPD (chronic obstructive pulmonary disease) Status: Chronic (6) Tobacco abuse Status: Chronic (7) Acute on chronic respiratory failure with hypoxia Status: Acute Clinical Quality Measures AMI/AHF: ASA po Prior to arrival: Yes MÓNICA NOVAK MD Feb 21, 2022 20:43
[2022-02-21 23:50] VITALS: BP 119/67
[2022-02-22] MEDS: RT-ALBUTEROL/IPRATROPIUM 3 ML (DUONEB) VIAL INH SCH ×3 (02:56→14:53)
[2022-02-22 04:01] VITALS: BP 120/56
[2022-02-22] MEDS: inSUlin ASPART (NovoLOG) 1 UNIT/0.01 ML (CHARGE PER UNIT) SC SCH ×3 (05:21→17:17)
[2022-02-22] MEDS: predniSONE 20 MG TAB PO SCH (05:40)
[2022-02-22] MEDS: MAGNESIUM 1 GM/100 ML IVPB 100 ML IV SCH (05:40)
[2022-02-22 08:02] LABS: CALCIUM 9.4 MG/DL (8.5-10.1); CREATININE SERUM 1.69 MG/DL (0.60-1.30); POTASSIUM 4.8 MMOL/L (3.6-5.0)
[2022-02-22 08:03] VITALS: BP 118/65
[2022-02-22 08:03] LABS: BASOPHILS % (AUTO) 0 % (0-10); EOSINOPHILS % (AUTO) 0 % (0-10); HEMATOCRIT 42 % (40-54); HEMOGLOBIN 14.3 g/dL (13.3-17.7); LYMPHOCYTES # (AUTO) 0.7 10^3/uL (1.0-4.0); LYMPHOCYTES % (AUTO) 5 % (12-44); MEAN CORPUSCULAR HEMOGLOBIN 31 pg (25-34); MEAN CORPUSCULAR HGB CONC 34 g/dL (32-36); MEAN CORPUSCULAR VOLUME 89 fL (80-99); MEAN PLATELET VOLUME 11.2 fL (9.0-12.2); MONOCYTES # (AUTO) 0.8 10^3/uL (0.0-1.0); MONOCYTES % (AUTO) 5 % (0-12); NEUTROPHILS # (AUTO) 13.8 10^3/uL (1.8-7.8); NEUTROPHILS % (AUTO) 89 % (42-75); PLATELET COUNT 382 10^3/uL (130-400); WHITE BLOOD COUNT 15.5 10^3/uL (4.3-11.0)
[2022-02-22] MEDS: ASPIRIN 81 MG CHEW (CHILDREN'S ASA) PO SCH (09:05)
[2022-02-22] MEDS: PANTOPRAZOLE 40 MG (PROTONIX) TAB PO SCH (09:05)
[2022-02-22] MEDS: DIGOXIN 0.125 MG (LANOXIN) TAB PO SCH (09:05)
[2022-02-22] MEDS: DOCUSATE SODIUM 100 MG (COLACE) CAP PO SCH (09:05)
[2022-02-22] MEDS: SENNOSIDES 8.6 MG (SENOKOT) TAB PO SCH (09:05)
[2022-02-22] MEDS: SPIRONOLACTONE 25 MG (ALDACTONE) TAB PO SCH (09:06)
[2022-02-22] MEDS: APIXABAN 5 MG (ELIQUIS) TABLET PO SCH (09:06)
[2022-02-22] MEDS: meTOproloL SUCCINATE 50 MG (TOPROL XL) TAB PO SCH (09:06)
[2022-02-22] MEDS: EMPAGLIFLOZIN 10 MG TABLET (JARDIANCE) PO SCH (09:06)
[2022-02-22] MEDS: RT--FLUTICASONE/SALMETEROL 113-14 (AIRDUO RespiCLICK) IH SCH (09:57)
--- NOTE | 2022-02-22 10:12 | Progress Note - Cardiology ---
Cardiology SOAP Progress Note Objective: I&O/Vital Signs 02/21/22 02/21/22 02/22/22 02/22/22 22:17 23:50 01:00 02:56 Temp 36.6 Pulse 80 66 74 Resp 20 B/P (MAP) 119/67 (84) Pulse Ox 90 92 O2 Delivery High Flow N/C High Flow N/C O2 Flow Rate 4.00 4.00 02/22/22 02/22/22 02/22/22 02/22/22 04:01 07:03 08:03 09:07 Temp 36.4 36.0 Pulse 72 71 74 67 Resp 20 18 B/P (MAP) 120/56 (77) 118/65 (82) Pulse Ox 91 90 O2 Delivery High Flow N/C High Flow N/C O2 Flow Rate 4.00 4.00 02/22/22 09:57 Pulse Ox 92 O2 Delivery High Flow N/C O2 Flow Rate 4.00 02/22/22 00:00 Intake Total 1040 ml Output Total 800 ml Balance 240 ml Constitutional: AAO x 3, well-developed, other (thin-appearing) Respiratory: No accessory muscle use, No respiratory distress; rhonchi (scattered), other (prolonged exp phase) Cardiovascular: irregularly irregular Gastrointestional: No tender; soft, audible bowel sounds Extremities: no lower extremity edema bilateral Neurologic/Psychiatric: other (moves all limbs equally) Skin: No rash on exposed areas, No ulcerations on exposed areas Results/Procedures: Labs Laboratory Tests 02/21/22 11:10: Glucometer 191H 02/21/22 20:26: Glucometer 258H 02/22/22 04:42: Glucometer 110, White Blood Count 15.5H, Red Blood Count 4.69, Hemoglobin 14.3, Hematocrit 42, Mean Corpuscular Volume 89, Mean Corpuscular Hemoglobin 31, Mean Corpuscular Hemoglobin Concent 34, Red Cell Distribution Width 13.2, Platelet Count 382, Mean Platelet Volume 11.2, Immature Granulocyte % (Auto) 1, Neutrophils (%) (Auto) 89H, Lymphocytes (%) (Auto) 5L, Monocytes (%) (Auto) 5, Eosinophils (%) (Auto) 0, Basophils (%) (Auto) 0, Neutrophils # (Auto) 13.8H, Lymphocytes # (Auto) 0.7L, Monocytes # (Auto) 0.8, Eosinophils # (Auto) 0.0, Basophils # (Auto) 0.0, Immature Granulocyte # (Auto) 0.1, Sodium Level 132L, Potassium Level 4.8, Chloride Level 90L, Carbon Dioxide Level 30, Anion Gap 12, Blood Urea Nitrogen 58H, Creatinine 1.69H, Estimat Glomerular Filtration Rate 42, BUN/Creatinine Ratio 34, Glucose Level 114H, Calcium Level 9.4, Magnesium Level 1.9 Microbiology 02/08/22 MRSA Screen - Final, Complete MRSA not isolated Laboratory Tests 02/21/22 03:58 02/22/22 04:42 A/P: Assessment: PAF w/ intermittent RVR - diagnose on EKG of 02-08-22 at [facility] ED - rate controlled - on BB and Digoxin - OAC with Eliquis - 3 attempts at ext elec CV on 02/18/22, none was able to keep in NSR Elevated troponin due to Type 2 LA at presentation due to resp failure and due to RVR in presence of underlying CAD Acute renal insuff (DESIRAE) due to volume depletion - hydration improved azotemia but led to volume overload - now on diuretics - reduce diuretics on 02/21/22 Ac on ch resp failure due to ac exac of severe, oxygen-dependent COPD ICM - Echocardiogram of 05-21-[address] Cadet showed LVEF 40-45%. Grade 1 diastolic dysfunction. Mild AoR. PASP 15-20 mmHg - Echo on 02/09/22: LVEF 40-45%, mod biatrial enlargement, PASP 40-45 mmHg - MARK on 02/18/22: LVEF 45-50%, no evidence of intracardiac thrombus Hematuria - resolved - management per Medical/Urology services Coronary artery disease - history of 4 vessel CABG in 1996 in [place] - Cardiac catheterization [place] [address] Cadet showing patent vein graft to the circumflex artery and vein graft to the right coronary artery, severe stenosis in the LAD, had 2 stents in the proximal LAD, underwent balloon angioplasty for in-stent restenosis, has severe stenosis in the diagonal branch that was not intervened on. - Cardiac catheterization on May 22, [address] Cadet showing moderate stenosis in the stent of the LAD and distal left main, moderate diffuse disease, diagonal branch had significatn disase but was a small artery, occluded vein graft to the circumflex artery and had moderately severe ostial stenosis of the vein graft to the right coronary artery to which balloon angioplasty was undertaken with good results H/o hypertension Hyperlipidemia Tobaccoism - 1/2 PPD of cigs - cessation advised DM 2 Plan: * Complex management * Renal function improving following reduction in diuretics * Ext elec CV has failed repeatedly. Plan is rate control * Eliquis for stroke prophylaxis * Continue ASA for CAD * Continue heart failure meds as tolerated * Monitor labs, including dig level. Reduce dig if level greater than 1 * Increase ambulation * Med svce managing COPD and ac on ch resp failure Clinical Quality Measures AMI/AHF: ASA po Prior to arrival: Yes MIRNA SHARMA [facility] Feb 22, 2022 10:12
--- NOTE | 2022-02-22 11:21 | Physical Therapy Evaluation ---
PT Evaluation-General Medical Diagnosis Admission Date Feb 08, 2022 at 15:18 Medical Diagnosis: atrial flutter with RVR Onset Date: Feb 08, 2022 Therapy Diagnosis Therapy Diagnosis: debility Precautions Precautions/Isolations: Standard Precautions Weight Bear Status Right Lower Extremity: Right Weight Bearing/Tolerated Left Lower Extremity: Left Weight Bearing/Tolerated Referral Physician: Wade Reason for Referral: Evaluation/Treatment Medical History Pertinent Medical History: CABG, CAD, COPD, HTN Current History ER from Dr. chavez due to CP and SOA Reviewed History: Yes Social History Current Living Status: Spouse Entry Into Home: Stairs With Railing PT Steps Into Home: 2 Prior Prior Level of Function SCALE: Activities may be completed with or without assistive devices. 2-Xfwsvdogea-urqdqcy completes the activity by him/herself with no assistance from a helper. 5-Set-up or Clean-up Assistance-helper sets up or cleans up; patient completes activity. Black assists only prior to or following the activity. 4-Supervision or Touching Assistance-helper provides verbal cues and/or touching/steadying and/or contact guard assistance as patient completes activity. Assistance may be provided throughout the activity or intermittently. 3-Partial/Moderate Assistance-helper does LESS THAN HALF the effort. Black lifts, holds or supports trunk or limbs, but provides less than half the effort. 2-Substantial/Maximal Assistance-helper does MORE THAN HALF the effort. Black lifts or holds trunk or limbs and provides more than half the effort. 9-Fevmjboyy-aclmdh does ALL the effort. Patient does none of the effort to complete the activity. Or, the assistance of 2 or more helpers is required for the patient to complete the activity. If activity was not attempted, code reason: 7-Patient Refused. 9-Not Applicable-not attempted and the patient did not perform the activity before the current illness, exacerbation or injury. 10-Not Attempted due to Environmental Limitations-(lack of equipment, weather restraints, etc.). 88-Not Attempted due to Medical Conditions or Safety Concerns. Bed Mobility: 6 Transfers (B,C,W/C): 6 Gait: 6 Stairs: 6 Indoor Mobility (Ambulation): Independent Stairs: Independent Prior Devices Use: None PT Evaluation-Current Subjective Patient agrees to PT. Currently on 4L O2, HF NC Objective Patient Orientation: Normal For Age Attachments: Oxygen (4L HF) ROM/Strength ROM Lower Extremities bilateral LE WFL Strength Lower Extremities 4/5 grossly bilateral LE all planes Integumentary/Posture Bowel Incontinence: No Bladder Incontinence: No Posture WFL Neuromuscular (Tone, Coordination, Reflexes) grossly intact Sensory Vision: Wears Glasses Hearing: Functional Sensation Right Lower Extremit: Intact Sensation Left Lower Extremity: Intact Transfers Sit to Stand (QC): 6 Gait Mode of Locomotion: Walk Anticipated Mode of Locomotion: Walk Walk 10 feet (QC): 6 Walk 50 ft with 2 Turns(QC): 6 Walk 150 ft (QC): 6 Distance: 250' Gait Assistive Device: None Comments/Gait Description safe and functional with no deviation Balance Sitting Static: Normal Sitting Dynamic: Normal Standing Static: Normal Standing Dynamic: Normal Treatment Home O2 study performed with RT (refer to RT notes for results) Assessment/Needs Patient is currently independent with all gross motor skills safely and does not require skilled PT intervention. Patient does need to ambulate PRN. RN notified. RT to give specific instruction on O2 needs to RN. Rehab Potential: Fair PT Plan Treatment/Plan Treatment Plan: Discontinue PT Treatment Duration: Feb 22, 2022 Frequency: 1 time per week Estimated Hrs Per Day: .25 hour per day Patient and/or Family Agrees t: Yes Time Time In: 1050 Time Out: 1108 DATE: Feb 22, 2022 Total Billed Treatment Time: 18 Total Billed Treatment 1 visit EVMod 18 min CHON LAZCANO PT Feb 22, 2022 11:21
[2022-02-22 11:34] VITALS: BP 108/60
[2022-02-22] MEDS ORDERED: DIGO125T18 PO (12:35)
[2022-02-22] MEDS ORDERED: PRED10TA22 PO (12:35)
[2022-02-22] MEDS ORDERED: TMSL.4C PO (12:35)
[2022-02-22] MEDS ORDERED: SPIR25TA5 PO (12:35)
[2022-02-22] MEDS ORDERED: APIX5TAB PO (12:35)
[2022-02-22] MEDS ORDERED: METO50TA7 PO (12:35)
--- NOTE | 2022-02-22 15:39 | Progress Note - Cardiology ---
Cardiology SOAP Progress Note Subjective: No cp or palp or syncope Shortness of breath now at its usual baseline No n/v/d Gen weakness improving No focal weakness Objective: I&O/Vital Signs 02/22/22 02/22/22 02/22/22 02/22/22 04:01 07:03 08:03 09:07 Temp 36.4 36.0 Pulse 72 71 74 67 Resp 20 18 B/P (MAP) 120/56 (77) 118/65 (82) Pulse Ox 91 90 O2 Delivery High Flow N/C High Flow N/C O2 Flow Rate 4.00 4.00 02/22/22 02/22/22 02/22/22 02/22/22 09:57 10:44 11:34 12:40 Temp 36.4 Pulse 94 71 Resp 18 B/P (MAP) 108/60 (76) Pulse Ox 92 94 O2 Delivery High Flow N/C High Flow N/C High Flow N/C O2 Flow Rate 4.00 4.00 9.00 02/22/22 14:53 Pulse Ox 94 O2 Delivery High Flow N/C O2 Flow Rate 10.00 02/22/22 00:00 Intake Total 1040 ml Output Total 800 ml Balance 240 ml Constitutional: AAO x 3, well-developed, other (thin-appearing) Respiratory: No accessory muscle use, No respiratory distress; rhonchi (scattered), other (prolonged exp phase) Cardiovascular: irregularly irregular Gastrointestional: No tender; soft, audible bowel sounds Extremities: no lower extremity edema bilateral Neurologic/Psychiatric: other (moves all limbs equally) Skin: No rash on exposed areas, No ulcerations on exposed areas Results/Procedures: Labs Laboratory Tests 02/21/22 20:26: Glucometer 258H 02/22/22 04:42: Glucometer 110, White Blood Count 15.5H, Red Blood Count 4.69, Hemoglobin 14.3, Hematocrit 42, Mean Corpuscular Volume 89, Mean Corpuscular Hemoglobin 31, Mean Corpuscular Hemoglobin Concent 34, Red Cell Distribution Width 13.2, Platelet Count 382, Mean Platelet Volume 11.2, Immature Granulocyte % (Auto) 1, Neutrophils (%) (Auto) 89H, Lymphocytes (%) (Auto) 5L, Monocytes (%) (Auto) 5, Eosinophils (%) (Auto) 0, Basophils (%) (Auto) 0, Neutrophils # (Auto) 13.8H, Lymphocytes # (Auto) 0.7L, Monocytes # (Auto) 0.8, Eosinophils # (Auto) 0.0, Basophils # (Auto) 0.0, Immature Granulocyte # (Auto) 0.1, Sodium Level 132L, Potassium Level 4.8, Chloride Level 90L, Carbon Dioxide Level 30, Anion Gap 12, Blood Urea Nitrogen 58H, Creatinine 1.69H, Estimat Glomerular Filtration Rate 42, BUN/Creatinine Ratio 34, Glucose Level 114H, Calcium Level 9.4, Magnesium Level 1.9 Microbiology 02/08/22 MRSA Screen - Final, Complete MRSA not isolated Laboratory Tests 02/21/22 03:58 02/22/22 04:42 A/P: Assessment: PAF w/ intermittent RVR - diagnose on EKG of 02-08-[address] [facility] ED - rate controlled - on BB and Digoxin - OAC with Eliquis - 3 attempts at ext elec CV on 02/18/22, none was able to keep in NSR Elevated troponin due to Type 2 FL at presentation due to resp failure and due to RVR in presence of underlying CAD Acute renal insuff (DESIRAE) due to volume depletion - hydration improved azotemia but led to volume overload - now on diuretics - reduce diuretics on 02/21/22 Ac on ch resp failure due to ac exac of severe, oxygen-dependent COPD ICM - Echocardiogram of 05-21-[address] Cadet showed LVEF 40-45%. Grade 1 diastolic dysfunction. Mild AoR. PASP 15-20 mmHg - Echo on 02/09/22: LVEF 40-45%, mod biatrial enlargement, PASP 40-45 mmHg - MARK on 02/18/22: LVEF 45-50%, no evidence of intracardiac thrombus Hematuria - resolved - management per Medical/Urology services Coronary artery disease - history of 4 vessel CABG in 1996 in [place] - Cardiac catheterization [place] [address] Cadet showing patent vein graft to the circumflex artery and vein graft to the right coronary artery, severe stenosis in the LAD, had 2 stents in the proximal LAD, underwent balloon angioplasty for in-stent restenosis, has severe stenosis in the diagonal branch that was not intervened on. - Cardiac catheterization on May 22, [address] Cadet showing moderate stenosis in the stent of the LAD and distal left main, moderate diffuse disease, diagonal branch had significatn disase but was a small artery, occluded vein graft to the circumflex artery and had moderately severe ostial stenosis of the vein graft to the right coronary artery to which balloon angioplasty was undertaken with good results H/o hypertension Hyperlipidemia Tobaccoism - 1/2 PPD of cigs - cessation advised DM 2 Plan: * Complex management * Renal function improving following reduction in diuretics * Ext elec CV has failed repeatedly. Plan is rate control * Eliquis for stroke prophylaxis * Continue ASA for CAD * Continue heart failure meds as tolerated * Med svce managing COPD and ac on ch resp failure * Ok for d/c from cardiac standpoint. Close outpt f/u advised Clinical Quality Measures AMI/AHF: ASA po Prior to arrival: Yes MONICA CRUZ MD FACP FAC CCDS Feb 22, 2022 15:39
[2022-02-22 16:00] VITALS: BP 134/70
[2022-02-22 17:50] VITALS: BP 134/70
[2022-02-23] MEDS ORDERED: FUROSEMIDE 40 MG (LASIX) TAB PO SCH (09:00)
== END 2022-02-22 17:50 | disposition hospice, home (50) | DRG 280 ==
LOC: EDUNIT# 10:09 → ER 10:12 → ICU 14:46 → OBSVTOIN 15:18 → 4TH 02-21 14:45
PROVIDERS: ADMIT Internal Medicine; ATTEND Internal Medicine
PROC: 5A0945A Assistance with Respiratory Ventilation, 24-96 Consecutive Hours, High Flow/Velocity Cannula (ICD-10-PCS; 2022-02-13)
PROC: 0TJB8ZZ Inspection of Bladder, Via Natural or Artificial Opening Endoscopic (ICD-10-PCS; 2022-02-15)
PROC: 5A2204Z Restoration of Cardiac Rhythm, Single (ICD-10-PCS; principal; 2022-02-18)
DX: I48.92 Unspecified atrial flutter (principal); I21.A1 Myocardial infarction type 2; I50.23 Acute on chronic systolic (congestive) heart failure; J96.21 Acute and chronic respiratory failure with hypoxia; N17.9 Acute kidney failure, unspecified; I13.0 Hypertensive heart and chronic kidney disease with heart failure and stage 1 through stage 4 chronic kidney disease, or unspecified chronic kidney disease; J44.1 Chronic obstructive pulmonary disease with (acute) exacerbation; I25.810 Atherosclerosis of coronary artery bypass graft(s) without angina pectoris; I48.0 Paroxysmal atrial fibrillation; Z20.822 Contact with and (suspected) exposure to COVID-19; E11.22 Type 2 diabetes mellitus with diabetic chronic kidney disease; N18.9 Chronic kidney disease, unspecified; N40.0 Benign prostatic hyperplasia without lower urinary tract symptoms; R31.0 Gross hematuria; E83.42 Hypomagnesemia; I25.5 Ischemic cardiomyopathy; I27.20 Pulmonary hypertension, unspecified; I25.10 Atherosclerotic heart disease of native coronary artery without angina pectoris; E78.2 Mixed hyperlipidemia; F17.210 Nicotine dependence, cigarettes, uncomplicated; F41.9 Anxiety disorder, unspecified; H91.90 Unspecified hearing loss, unspecified ear; H54.7 Unspecified visual loss; Z99.81 Dependence on supplemental oxygen; Z79.01 Long term (current) use of anticoagulants; Z95.1 Presence of aortocoronary bypass graft; Z95.5 Presence of coronary angioplasty implant and graft; Z79.82 Long term (current) use of aspirin; Z79.84 Long term (current) use of oral hypoglycemic drugs
CPT/HCPCS: 36415; 36600; 71045; 71260; 80048; 80053; 80061; 80162; 82805; 82947; 83735; 83874; 83880; 84100; 84145; 84443; 84484; 85007; 85025; 85027; 85610; 85730; 87081; 87636; 92960; 93005; 93041; 93306; 93312; 94640; 94660; 94760; 94761; 96361; 96365; 96366